=== PATIENT | female | born 1990 | race Caucasian/White ===

== ENCOUNTER → 2016-07-17 | Outpatient (CLI) | payer BC ==
[2016-07-21 16:04] LABS: HPV 16 Not Detected (NOTDET); HPV 18 Not Detected (NOTDET)
== END ==
LOC: MW.CHOBGYN 10:28
PROVIDERS: ATTEND Obstetrics & Gynecology
DX: Z12.4 Encounter for screening for malignant neoplasm of cervix (principal)
CPT/HCPCS: 87624; G0145

== ENCOUNTER 2017-07-03 07:09 | Day surgery (SDC) | payer BC ==
[2017-07-03] MEDS ORDERED: Bupivacaine 25%/EPINEPHrine/PF 30 ML ONE ×2 (07:41→08:22)
[2017-07-03] MEDS ORDERED: Midazolam 1 MG/ML 2 ML SDV ONE (07:57)
[2017-07-03] MEDS ORDERED: fentaNYL 100 MCG/2 ML SDV ONE (07:57)
[2017-07-03] MEDS ORDERED: Propofol 200 MG/20 ML SDV ONE (07:57)
--- NOTE | 2017-07-03 07:57 | PCM.PREANE ---
Preanesthetic Assessment - Anesthesia/Transfusion/Family Hx Anesthesia History: Prior Anesthesia Without Reaction Other Type of Anesthesia Reaction Comment: STATES MOTHER IS A HARD INTUBATION DUE TO SMALL MOUTH Family History of Anesthesia Reaction: No Transfusion History: No Prior Transfusion(s) Intubation History: Unknown - Review of Systems General: No Symptoms Pulmonary: No Symptoms Cardiovascular: No Symptoms Gastrointestinal: No Symptoms Neurological: No Symptoms Other: Reports: None - Physical Assessment O2 Sat by Pulse Oximetry: 96 Respiratory Rate: 16 Vital Signs: Last Vital Signs Temp 37.4 C 07/03/17 07:28 Pulse 83 07/03/17 07:28 Resp 16 07/03/17 07:28 BP 142/87 H 07/03/17 07:28 Pulse Ox 96 07/03/17 07:28 Height: 1.6 m Weight: 101.151 kg ASA Class: 2 Mental Status: Alert & Oriented x3 Airway Class: Mallampati = 2 Dentition: Reports: Normal Dentition Thyro-Mental Finger Breadths: 3 Mouth Opening Finger Breadths: 2 (very small mouth) ROM/Head Extension: Full Lungs: Clear to Auscultation, Normal Respiratory Effort Cardiovascular: Regular Rate, Regular Rhythm - Lab Values: Laboratory Last Values Urine HCG, Qual NEGATIVE (NEGATIVE) 07/03/17 07:12 - Allergies Allergies/Adverse Reactions: Allergies Allergy/AdvReac Type Severity Reaction Status Date / Time No Known Allergies Allergy Verified 06/28/17 09:52 - Blood Blood Available: No - Anesthesia Plan Pre-Op Medication Ordered: None - Acknowledgements Anesthesia Type Planned: MAC Pt an Appropriate Candidate for the Planned Anesthesia: Yes Alternatives and Risks of Anesthesia Discussed w Pt/Guardian: Yes Pt/Guardian Understands and Agrees with Anesthesia Plan: Yes PreAnesthesia Questionnaire - Past Health History Medical/Surgical History: Denies Medical/Surgical History HEENT History: Reports: Other (See Below) Other HEENT History: wears glasses/contacts Gastrointestinal History: Reports: Other (See Below) (h/o IBS) Genitourinary History: Reports: None 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 , Musculoskeletal History: Reports: Fracture, Other (See Below) (bilateral carpal tunnel syndrome) Other Musculoskeletal History: fx jaw Neurological History: Reports: None Psychiatric History: Reports: Anxiety, Other (See Below) (h/o depression) Endocrine/Metabolic History: Reports: Obesity/BMI 30+ (BMI 39.5) Hematologic History: Reports: None Immunologic History: Reports: None Oncologic (Cancer) History: Reports: None Dermatologic History: Reports: Psoriasis - Past Surgical History Head Surgeries/Procedures: Reports: None HEENT Surgical History: Reports: Adenoidectomy, Tonsillectomy, Other (See Below) Other HEENT Surgeries/Procedures: jaw surgery to advance mandible forward GI Surgical History: Reports: Cholecystectomy, Colonoscopy Female Surgical History: Reports: D&C, Other (See Below) Other Female Surgeries/Procedures: laparoscopy for ectopic with left salpingectomy - SUBSTANCE USE Smoking Status *Q: Current Every Day Smoker (1/ ppd at present time) Second Hand Smoke Exposure: Yes Days Per Week of Alcohol Use: 0 Recreational Drug Use History: Yes - HOME MEDS Home Medications: Home Meds Norgestimate-Ethinyl Estradiol [Norg-Ee 0.18-0.215-0.25/0.025] 1 tab PO DAILY [History] - CURRENT (IN HOUSE) MEDS Current Meds: Current Medications Hydrocodone Bitart/Acetaminophen ([place] 325-5 Mg) 1 tab PO Q4H PRN PRN Reason: Pain Bupivacaine HCl/Epinephrine Bitart (Marcaine 0.25%/Epinephrine 1:200,000) 10 ml INJECT ONETIME ONE Stop: 07/03/17 08:01 Cefazolin Sodium/Dextrose 2 gm (/ Premix) 50 mls @ 100 mls/hr IV ONETIME ONE Stop: 07/03/17 08:29 Lactated Ringer's (Ringers, Lactated) 1,000 mls @ 500 mls/hr IV .BOLUS MAUREEN Last Admin: 07/03/17 07:30 Dose: 500 mls/hr Discontinued Medications Bupivacaine HCl/Epinephrine Bitart (Sensorc Mpf 0.25%-Epi 1:705214) Confirm Administered Dose 30 mls @ as directed .ROUTE .STK-MED ONE Stop: 07/03/17 07:42
[2017-07-03] MEDS ORDERED: ceFAZolin 2 GM in Premix Bag 1 BAG IV ONE (08:00)
[2017-07-03] MEDS ORDERED: Lactated Ringers 1,000 ML IV SCH (08:00)
[2017-07-03] MEDS ORDERED: Bupivacaine 0.25%/EPINEPHrine 1:200,000 10 ML SDV INJECT ONE (08:00)
[2017-07-03] MEDS ORDERED: Acetaminophen/HYDROcodone 325-5 MG Tab PO PRN (08:00)
[2017-07-03] MEDS ORDERED: ceFAZolin/Dextrose,Iso-Osmotic 2 GM/50 ML Duplex Bag IV ONE (08:04)
[2017-07-03] MEDS ORDERED: diphenhydrAMINE 50 MG/ML SDV ONE (08:28)
--- NOTE | 2017-07-03 09:17 | PCM48HPAN ---
Post Anesthesia Note - EVALUATION WITHIN 48HRS OF ANESTHETIC Vital Signs in Normal Range: Yes Patient Participated in Evaluation: Yes Respiratory Function Stable: Yes Airway Patent: Yes Cardiovascular Function Stable: Yes Hydration Status Stable: Yes Pain Control Satisfactory: Yes Nausea and Vomiting Control Satisfactory: Yes Mental Status Recovered: Yes Resp Rate: 16 - COMMENTS/OBSERVATIONS Free Text/Narrative:: No anesthesia problems. Patient skipped recovery room phase of postoperative care.
[2017-07-03 15:01] VITALS: BP 124/66
--- NOTE | 2017-07-03 16:26 | PCM.OPNOTE ---
- General Post-Op/Procedure Note Date of Surgery/Procedure: 07/03/17 Operative Procedure(s): right carpal tunnel release Pre Op Diagnosis: right carpal tunnel Post-Op Diagnosis: Same Anesthesia Technique: Local, MAC Primary Surgeon: Vijaya Estrada Tar Distillation Supervisor: Jennifer Nicolas Complications: None Condition: Good Free Text/Narrative:: [id number]
--- NOTE | 2017-07-03 21:55 | OR ---
SURGEON: FRAN FREDERICK MD DATE OF PROCEDURE: 07/03/2017 PREOPERATIVE DIAGNOSIS: Right carpal tunnel syndrome. POSTOPERATIVE DIAGNOSIS: Right carpal tunnel syndrome. PROCEDURE: Right carpal tunnel release. MAJOR ACCOUNT MANAGER: JOSEPH Hannah ANESTHESIA: Local MAC. INDICATIONS: Ms. Chavez is a 27-year-old female, who has failed conservative management of her carpal tunnel syndrome. Risks and benefits of the surgery were discussed with her and she was in agreement to proceed. Risks were including, but not limited to, bleeding, infection, damage to underlying or overlying structures, possible need for future interventions, and possible scarring. PROCEDURE IN DETAIL: After informed consent was obtained and placed on the chart, the patient was brought to the operating theater and laid in supine position. After adequate local MAC anesthesia was obtained, the area was prepped and draped, and a time- out was completed to confirm side and site. Attention was then paid to dissection with a 15 blade over the transverse carpal ligament, and dissection was carried through the skin and subcutaneous tissues under direct visualization until the ligament was breached. Once adequately breached, dissection was then carried distally and proximally under direct visualization until complete release of the ligament. Once adequately released, the area was copiously irrigated with saline and then closed using 5-0 nylon stitch in a horizontal mattress fashion. The wound was then dressed with Xeroform, fluffs, and a Kerlix gauze dressing along with 2-inch Flako wrap. The patient tolerated this well. All counts and needles were correct at the end of the case. FOLLOWUP INSTRUCTIONS: The patient will see us in the clinic in 2 weeks for suture removal, sooner if any problems, questions, or concerns. She was given a prescription for [place] for pain control as needed. HEGGTHE / MODL /[id number]
== END 2017-07-03 09:30 | disposition home or self-care (01) ==
LOC: MW.SDS 07:09
PROVIDERS: ATTEND Plastic Surgery
DX: G56.03 Carpal tunnel syndrome, bilateral upper limbs (principal); F41.9 Anxiety disorder, unspecified; F32.9 Major depressive disorder, single episode, unspecified; F17.210 Nicotine dependence, cigarettes, uncomplicated; E66.9 Obesity, unspecified; Z68.39 Body mass index [BMI] 39.0-39.9, adult; Z90.49 Acquired absence of other specified parts of digestive tract; Z98.890 Other specified postprocedural states; Z79.3 Long term (current) use of hormonal contraceptives
CPT/HCPCS: 64721; 81025; J0690; J1200; J2250; J3010; J7120; 01810; J2704

== ENCOUNTER 2017-08-07 06:15 | Day surgery (SDC) | payer BC ==
[2017-08-07] MEDS ORDERED: Bupivacaine 25%/EPINEPHrine/PF 30 ML ONE (07:27)
[2017-08-07] MEDS ORDERED: Desflurane 240 ML Bottle ONE (07:35)
[2017-08-07] MEDS ORDERED: fentaNYL 100 MCG/2 ML SDV ONE (07:37)
[2017-08-07] MEDS ORDERED: Midazolam 1 MG/ML 2 ML SDV ONE (07:37)
[2017-08-07] MEDS ORDERED: Propofol 200 MG/20 ML SDV ONE (07:37)
[2017-08-07] MEDS ORDERED: ceFAZolin/Dextrose,Iso-Osmotic 2 GM/50 ML Duplex Bag IV ONE (07:38)
[2017-08-07] MEDS ORDERED: Lidocaine 2% 5 ML SDV ONE (07:38)
--- NOTE | 2017-08-07 07:55 | PCM.PREANE ---
Preanesthetic Assessment - Anesthesia/Transfusion/Family Hx Anesthesia History: Prior Anesthesia Without Reaction Other Type of Anesthesia Reaction Comment: STATES MOTHER IS A HARD INTUBATION DUE TO SMALL MOUTH Transfusion History: No Prior Transfusion(s) Intubation History: Unknown - Review of Systems General: No Symptoms, Other (psoriasis) Pulmonary: No Symptoms Cardiovascular: No Symptoms Gastrointestinal: No Symptoms Neurological: No Symptoms, Numbness (left hand) Other: Reports: Anxiety - Physical Assessment NPO Status Date: 08/06/17 NPO Status Time: 23:00 O2 Sat by Pulse Oximetry: 95 Respiratory Rate: 16 Vital Signs: Last Vital Signs Temp 97.2 F 08/07/17 07:02 Pulse 151 H 08/07/17 07:02 Resp 16 08/07/17 07:02 BP Pulse Ox 95 08/07/17 07:02 Height: 5 ft 3 in Weight: 223 lb ASA Class: 2 Mental Status: Alert & Oriented x3 Airway Class: Mallampati = 2 Dentition: Reports: Normal Dentition Thyro-Mental Finger Breadths: 4 Mouth Opening Finger Breadths: 3 ROM/Head Extension: Limited/Partial Lungs: Clear to Auscultation, Normal Respiratory Effort Cardiovascular: Regular Rate, Regular Rhythm, No Murmurs - Lab Values: Laboratory Last Values Urine HCG, Qual NEGATIVE (NEGATIVE) 08/07/17 06:41 - Allergies Allergies/Adverse Reactions: Allergies Allergy/AdvReac Type Severity Reaction Status Date / Time No Known Allergies Allergy Verified 08/02/17 11:58 - Blood Blood Available: No Product(s) Available: None - Acknowledgements Anesthesia Type Planned: MAC Pt an Appropriate Candidate for the Planned Anesthesia: Yes Alternatives and Risks of Anesthesia Discussed w Pt/Guardian: Yes Pt/Guardian Understands and Agrees with Anesthesia Plan: Yes PreAnesthesia Questionnaire - Past Health History Medical/Surgical History: Denies Medical/Surgical History HEENT History: Reports: Other (See Below) Other HEENT History: wears glasses/contacts Gastrointestinal History: Reports: None Genitourinary History: Reports: None 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 , Musculoskeletal History: Reports: Fracture, Other (See Below) Other Musculoskeletal History: fx jaw Neurological History: Reports: None Psychiatric History: Reports: Anxiety, Other (See Below) Endocrine/Metabolic History: Reports: Obesity/BMI 30+ Hematologic History: Reports: None Immunologic History: Reports: None Oncologic (Cancer) History: Reports: None Dermatologic History: Reports: Psoriasis - Past Surgical History Head Surgeries/Procedures: Reports: None HEENT Surgical History: Reports: Adenoidectomy, Tonsillectomy, Other (See Below) Other HEENT Surgeries/Procedures: jaw surgery to advance mandible forward GI Surgical History: Reports: Cholecystectomy, Colonoscopy Female Surgical History: Reports: D&C, Other (See Below) Other Female Surgeries/Procedures: laparoscopy for ectopic with left salpingectomy - SUBSTANCE USE Smoking Status *Q: Current Every Day Smoker Second Hand Smoke Exposure: Yes Days Per Week of Alcohol Use: 0 Number of Drinks Per Day: 1 Total Drinks Per Week: 0 Recreational Drug Use History: Yes - HOME MEDS Home Medications: Home Meds Norgestimate-Ethinyl Estradiol [Norg-Ee 0.18-0.215-0.25/0.025] 1 tab PO DAILY [History] - CURRENT (IN HOUSE) MEDS Current Meds: Current Medications Hydrocodone Bitart/Acetaminophen ([place] 325-5 Mg) 1 tab PO Q4H PRN PRN Reason: Pain Bupivacaine HCl/Epinephrine Bitart (Marcaine 0.25%/Epinephrine 1:200,000) 10 ml INJECT ONETIME ONE Stop: 08/07/17 08:01 Cefazolin Sodium/Dextrose 2 gm (/ Premix) 50 mls @ 100 mls/hr IV ONETIME ONE Stop: 08/07/17 08:29 Lactated Ringer's (Ringers, Lactated) 1,000 mls @ 125 mls/hr IV ASDIRECTED MAUREEN Last Admin: 08/07/17 07:16 Dose: 125 mls/hr Discontinued Medications Cefazolin Sodium/Dextrose (Ancef) Confirm Administered Dose 2 gm IV .STK-MED ONE Stop: 08/07/17 07:39 Desflurane (Suprane) Confirm Administered Dose 480 ml .ROUTE .STK-MED ONE Stop: 08/07/17 07:36 Fentanyl (Sublimaze) Confirm Administered Dose 100 mcg .ROUTE .STK-MED ONE Stop: 08/07/17 07:38 Bupivacaine HCl/Epinephrine Bitart (Sensorc Mpf 0.25%-Epi 1:620777) Confirm Administered Dose 30 mls @ as directed .ROUTE .STK-MED ONE Stop: 08/07/17 07:28 Lidocaine (Xylocaine-Mpf 2%) Confirm Administered Dose 5 ml .ROUTE .STK-MED ONE Stop: 08/07/17 07:39 Midazolam HCl (Versed 1 Mg/Ml) Confirm Administered Dose 2 mg .ROUTE .STK-MED ONE Stop: 08/07/17 07:38 Propofol (Diprivan 20 Ml) Confirm Administered Dose 200 mg .ROUTE .STK-MED ONE Stop: 08/07/17 07:38
[2017-08-07] MEDS ORDERED: Acetaminophen/HYDROcodone 325-5 MG Tab PO PRN (08:00)
[2017-08-07] MEDS ORDERED: Lactated Ringers 1,000 ML IV SCH (08:00)
[2017-08-07] MEDS ORDERED: Bupivacaine 0.25%/EPINEPHrine 1:200,000 10 ML SDV INJECT ONE (08:00)
[2017-08-07] MEDS ORDERED: ceFAZolin 2 GM in Premix Bag 1 BAG IV ONE (08:00)
--- NOTE | 2017-08-07 08:38 | PCM48HPAN ---
Post Anesthesia Note - EVALUATION WITHIN 48HRS OF ANESTHETIC Vital Signs in Normal Range: Yes Patient Participated in Evaluation: Yes Respiratory Function Stable: Yes Airway Patent: Yes Cardiovascular Function Stable: Yes Hydration Status Stable: Yes Pain Control Satisfactory: Yes Nausea and Vomiting Control Satisfactory: Yes Mental Status Recovered: Yes Resp Rate: 16 - COMMENTS/OBSERVATIONS Free Text/Narrative:: Patient came directly to phase II due to sedation only for CTR on left hand. Stable and alert with pain complaint to be treated with [place] per surgeon. Release to home within the hour.
[2017-08-07 09:29] VITALS: BP 142/66
--- NOTE | 2017-08-07 15:57 | PCM.OPNOTE ---
- General Post-Op/Procedure Note Date of Surgery/Procedure: 08/07/17 Operative Procedure(s): Left carpal tunnel release Pre Op Diagnosis: left carpal tunnel Post-Op Diagnosis: Same Anesthesia Technique: Local, MAC Primary Surgeon: Vijaya Estrada Mortar Man: Jennifer Nicolas Complications: None Condition: Good
--- NOTE | 2017-08-09 15:16 | OR ---
SURGEON: FRAN FREDERICK MD DATE OF PROCEDURE: 08/07/2017 PREOPERATIVE DIAGNOSIS: Left carpal tunnel syndrome. POSTOPERATIVE DIAGNOSIS: Left carpal tunnel syndrome. PROCEDURE: Left carpal tunnel release. CALENDER TENDER: JOSEPH Hannah. ANESTHESIA: Local MAC. REASON CALENDER TENDER WAS NECESSARY: Retraction, prepping, draping, and closure. INDICATIONS: Ms. Chavez is a 27-year-old female, who has previously had a right carpal tunnel syndrome release with us and she has done well. She is here for the left side. Risks and benefits were discussed with her and she was in agreement to proceed. Risks were including, but not limited to, bleeding, infection, damage to underlying or overlying structures, possible need for future interventions, possible scarring. PROCEDURE IN DETAIL: After informed consent was obtained and placed on the chart, the patient was brought to the operating theater and laid in supine position. After adequate local MAC anesthesia was obtained, the area was prepped and draped, and a time- out was completed to confirm side and site. 0.25% Marcaine with epinephrine was injected into the area and after adequate block, the arm was exsanguinated. The tourniquet was insufflated to 200 mmHg. A 15 blade was then used to dissect through the skin and subcutaneous tissues over the transverse carpal ligament. The ligament was breached, and dissection was then carried distally and proximally until complete release of the underlying nerve. Once adequately released, the area was copiously irrigated and the skin was then closed using a 5-0 nylon stitch in a horizontal mattress fashion. The wound was dressed with Xeroform, fluffs, Kerlix gauze dressing, and a 2-inch Flako wrap. The patient tolerated this well. All counts and needles were correct at the end of the case. FOLLOWUP INSTRUCTIONS: The patient will see us in 10 to 14 days, sooner if any problems, questions, or concerns, and was given a prescription for pain control. ZARA / FOUZIA /[id number]
== END 2017-08-07 09:20 | disposition home or self-care (01) ==
LOC: MW.SDS 06:15
PROVIDERS: ATTEND Plastic Surgery
DX: G56.02 Carpal tunnel syndrome, left upper limb (principal); F41.9 Anxiety disorder, unspecified; M65.4 Radial styloid tenosynovitis [de Quervain]; L40.9 Psoriasis, unspecified; L82.1 Other seborrheic keratosis; F17.200 Nicotine dependence, unspecified, uncomplicated; E66.9 Obesity, unspecified; Z68.39 Body mass index [BMI] 39.0-39.9, adult; Z79.899 Other long term (current) drug therapy; Z98.890 Other specified postprocedural states; Z90.49 Acquired absence of other specified parts of digestive tract
CPT/HCPCS: 64721; 81025; A9270; J0690; J2250; J3010; J7120; 01810; J2704

== ENCOUNTER 2017-10-22 10:01 | Emergency (ER) | payer BC ==
--- NOTE | 2017-10-22 10:36 | EDM.PDOC ---
ED HPI GENERAL MEDICAL PROBLEM - General Chief Complaint: Skin Complaint Stated Complaint: BODYACHES Time Seen by Provider: 10/22/17 10:11 Source of Information: Reports: Patient History Limitations: Reports: No Limitations - History of Present Illness INITIAL COMMENTS - FREE TEXT/NARRATIVE: Presents to the ER reporting rash of 2 days duration. Started with a red crusty rash around her lips and nose and then "dots" on her face. She saw a provider at the clinic who prescribed Augmentin and Mupirocin. The rash then spread into her scalp with a "mass" in her right occipital area. 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 One of the physicians there did describe her symptoms and text pictures to a service agent who was not able to provide a diagnosis. Now today the patient states that she not only has the rash on her face and scalp but also on her hands. She also reports "prickly pain" and stiffness in the joints of her hands and feet. She denies fever, ill contacts, foreign travel , environmental exposures. She denies taking any [id number], herbal supplements, recreational drugs or prescription medications. The only medication she takes is control pills which she has been on for quite some time. She is otherwise healthy without any chronic medical problems. hands and feet Pain Score (Numeric/FACES): 5 - Related Data Allergies Allergy/AdvReac Type Severity Reaction Status Date / Time No Known Allergies Allergy Verified 10/22/17 10:07 Home Meds: Home Meds Norgestimate-Ethinyl Estradiol [Norg-Ee 0.18-0.215-0.25/0.025] 1 tab PO DAILY [History] Past Medical History - Past Health History Medical/Surgical History: Denies Medical/Surgical History HEENT History: Reports: Other (See Below) Other HEENT History: wears glasses/contacts Cardiovascular History: Reports: None Respiratory History: Reports: None Gastrointestinal History: Reports: None Genitourinary History: Reports: None 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 , Musculoskeletal History: Reports: Fracture, Other (See Below) Other Musculoskeletal History: fx jaw Neurological History: Reports: None Psychiatric History: Reports: Anxiety, Other (See Below) Endocrine/Metabolic History: Reports: Obesity/BMI 30+ Hematologic History: Reports: None Immunologic History: Reports: None Oncologic (Cancer) History: Reports: None Dermatologic History: Reports: Psoriasis - Infectious Disease History Infectious Disease History: Reports: Chicken Pox - Past Surgical History Head Surgeries/Procedures: Reports: None HEENT Surgical History: Reports: Adenoidectomy, Tonsillectomy, Other (See Below) Other HEENT Surgeries/Procedures: jaw surgery to advance mandible forward Cardiovascular Surgical History: Reports: None Respiratory Surgical History: Reports: None GI Surgical History: Reports: Cholecystectomy, Colonoscopy Female Surgical History: Reports: D&C, Other (See Below) Other Female Surgeries/Procedures: laparoscopy for ectopic with left salpingectomy Neurological Surgical History: Reports: None Musculoskeletal Surgical History: Reports: None Oncologic Surgical History: Reports: None Dermatological Surgical History: Reports: None Social & Family History - Family History Family Medical History: Noncontributory - Tobacco Use Smoking Status *Q: Current Every Day Smoker Years of Tobacco use: 6 Packs/Tins Daily: 0.2 - Caffeine Use Caffeine Use: Reports: None - Recreational Drug Use Recreational Drug Use: No ED ROS GENERAL - Review of Systems Review Of Systems: ROS reveals no pertinent complaints other than HPI. ED EXAM, SKIN/RASH Exam: See Below Exam Limited By: No Limitations General Appearance: Alert, No Apparent Distress Eye Exam: Bilateral Eye: EOMI, PERRL Ears: Normal External Exam, Normal TMs Nose: Normal Inspection Throat/Mouth: Normal Oropharynx, Other (Thin white film on tongue with a few red macules. Small red macules noted under the tongue and on the soft palate) Head: Atraumatic, Normocephalic, Other (Diffuse erythematous macular papular lesions scattered about scalp.) Neck: Normal Inspection, Lymphadenopathy (L) (Left posterior cervical tender lymph node approximately 2 cm) Respiratory/Chest: No Respiratory Distress, Lungs Clear Cardiovascular: Normal Peripheral Pulses, Regular Rate, Rhythm GI/Abdominal: Soft Back Exam: Normal Inspection Neurological: Alert Psychiatric: Flat Affect Skin: Warm, Dry, Intact, Normal Color, Other (Macular papular rash on the face scalp palms and soles and lower buttocks along with arm pits. Scarring and small pustules noted in axillary area.) Course - Vital Signs Last Recorded V/S: Last Vital Signs Temp 35.6 C 10/22/17 10:05 Pulse 108 H 10/22/17 10:05 Resp 18 10/22/17 10:05 BP 191/126 H 10/22/17 10:05 Pulse Ox 97 06/12/18 10:05 - Orders/Labs/Meds Labs: Laboratory Tests 10/22/17 10/22/17 Range/Units 10:38 10:38 WBC 5.34 (4.0-11.0) K/uL RBC 4.53 (4.30-5.90) M/uL Hgb 13.6 (12.0-16.0) g/dL Hct 38.2 (36.0-46.0) % MCV 84.3 (80.0-98.0) fL MCH 30.0 (27.0-32.0) pg MCHC 35.6 (31.0-37.0) g/dL RDW Std Deviation 37.9 (28.0-62.0) fl RDW Coeff of Zeb 12 (11.0-15.0) % Plt Count 171 (150-400) K/uL MPV 9.90 (7.40-12.00) fL Neut % (Auto) 64.5 (48.0-80.0) % Lymph % (Auto) 25.8 (16.0-40.0) % [place] % (Auto) 7.3 (0.0-15.0) % Eos % (Auto) 2.2 (0.0-7.0) % Baso % (Auto) 0.2 (0.0-1.5) % Neut # (Auto) 3.4 (1.4-5.7) K/uL Lymph # (Auto) 1.4 (0.6-2.4) K/uL [place] # (Auto) 0.4 (0.0-0.8) K/uL Eos # (Auto) 0.1 (0.0-0.7) K/uL Baso # (Auto) 0.0 (0.0-0.1) K/uL Nucleated RBC % 0.0 /100WBC Nucleated RBCs # 0 K/uL ESR 36 H (0-19) mm/hr Sodium 139 (136-145) mmol/L Potassium 3.7 (3.5-5.1) mmol/L Chloride 104 (98-107) mmol/L Carbon Dioxide 25.1 (21.0-32.0) mmol/L BUN 8 (7.0-18.0) mg/dL Creatinine 0.8 (0.6-1.0) mg/dL Est Cr Clr Drug Dosing 85.83 mL/min Estimated GFR (MDRD) > 60.0 ml/min Glucose 113 H (74-106) mg/dL Calcium 8.9 (8.5-10.1) mg/dL Total Bilirubin 0.3 (0.2-1.0) mg/dL AST 21 (15-37) IU/L ALT 23 (14-63) IU/L Alkaline Phosphatase 58 (46-116) U/L C-Reactive Protein 2.70 H (0.00-0.90) mg/dL Total Protein 7.5 (6.4-8.2) g/dL Albumin 3.6 (3.4-5.0) g/dL Globulin 3.9 H (2.0-3.5) g/dL Albumin/Globulin Ratio 0.9 L (1.3-2.8) Departure - Departure Time of Disposition: 12:14 Disposition: Home, Self-Care 01 Condition: Good Clinical Impression: Rash and nonspecific skin eruption - Discharge Information Referrals: PCP,None [Primary Care Provider] - Tracie Hinton DO [Physician] - Forms: ED Department Discharge Additional Instructions: 1. Please call and make an appointment with Dr. Hinton when you leave here. Drop your lab results off for Dr. Hinton's reveiw. 2. Start your prednisone at Dr. Hinton direction.
[2017-10-22 11:14] LABS: CHLORIDE,CL 104 mmol/L (98-107); SODIUM,NA 139 mmol/L (136-145)
[2017-10-22 12:49] VITALS: BP 147/92
== END 2017-10-22 12:49 | disposition home or self-care (01) ==
LOC: MW.ED 10:01
DX: R21 Rash and other nonspecific skin eruption (principal); F17.210 Nicotine dependence, cigarettes, uncomplicated
CPT/HCPCS: 36415; 80053; 85025; 85652; 86140; 99283

== ENCOUNTER 2018-06-13 09:36 | Day surgery (SDC) | payer BC ==
[~2018-06-13 09:36] MED LIST: Acetaminophen/HYDROcodone 325-5 MG Tab PO PRN; Bupivacaine 0.25%/EPINEPHrine 1:200,000 10 ML SDV INJECT ONE; Bupivacaine 0.25%/EPINEPHrine 1:200,000 10 ML SDV ONE; Lactated Ringers 1,000 ML IV SCH; ceFAZolin 2 GM in Premix Bag 1 BAG IV ONE
[2018-06-13] MEDS ORDERED: fentaNYL 100 MCG/2 ML SDV ONE ×2 (11:48→16:11)
[2018-06-13] MEDS ORDERED: Lidocaine 2% 5 ML SDV ONE (11:48)
[2018-06-13] MEDS ORDERED: Propofol 200 MG/20 ML SDV ONE (11:48)
[2018-06-13] MEDS ORDERED: Midazolam 1 MG/ML 2 ML SDV ONE (11:49)
--- NOTE | 2018-06-13 12:34 | PCM.PREANE ---
Preanesthetic Assessment - Anesthesia/Transfusion/Family Hx Anesthesia History: Prior Anesthesia Without Reaction Other Type of Anesthesia Reaction Comment: STATES MOTHER IS A HARD INTUBATION DUE TO SMALL MOUTH Family History of Anesthesia Reaction: No Transfusion History: No Prior Transfusion(s) Intubation History: Unknown - Review of Systems General: No Symptoms Pulmonary: No Symptoms Cardiovascular: No Symptoms Gastrointestinal: No Symptoms Neurological: No Symptoms Other: Reports: None - Physical Assessment Height: 1.6 m Weight: 103.873 kg ASA Class: 2 Mental Status: Alert & Oriented x3 Airway Class: Mallampati = 3 Dentition: Reports: Normal Dentition Thyro-Mental Finger Breadths: 3 Mouth Opening Finger Breadths: 1 (VERY SMALL MOUTH) ROM/Head Extension: Full Lungs: Clear to Auscultation, Normal Respiratory Effort Cardiovascular: Regular Rate, Regular Rhythm - Lab Values: Laboratory Last Values Urine HCG, Qual NEGATIVE (NEGATIVE) 06/13/18 10:20 - Allergies Allergies/Adverse Reactions: Allergies Allergy/AdvReac Type Severity Reaction Status Date / Time No Known Allergies Allergy Verified 06/11/18 10:19 - Blood Blood Available: No - Anesthesia Plan Pre-Op Medication Ordered: None - Acknowledgements Anesthesia Type Planned: General Anesthesia Pt an Appropriate Candidate for the Planned Anesthesia: Yes Alternatives and Risks of Anesthesia Discussed w Pt/Guardian: Yes Pt/Guardian Understands and Agrees with Anesthesia Plan: Yes PreAnesthesia Questionnaire - Past Health History Medical/Surgical History: Denies Medical/Surgical History HEENT History: Reports: Other (See Below) Other HEENT History: wears glasses/contacts Cardiovascular History: Reports: None, Other (See Below) (h/o induced hypertension) Respiratory History: Reports: None Gastrointestinal History: Reports: Other (See Below) (h/o IBS) Genitourinary History: Reports: Other (See Below) (stress incontinence) 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 Musculoskeletal History: Reports: Fracture, Other (See Below) Other Musculoskeletal History: fx jaw Neurological History: Reports: Migraines Psychiatric History: Reports: Anxiety, Other (See Below) Endocrine/Metabolic History: Reports: Obesity/BMI 30+ (BMI 40.6) Hematologic History: Reports: None Immunologic History: Reports: None Oncologic (Cancer) History: Reports: None Dermatologic History: Reports: Psoriasis - Infectious Disease History Infectious Disease History: Reports: Chicken Pox, Other (See Below) ( hydradenitis suppurativa left axilla) - Past Surgical History Head Surgeries/Procedures: Reports: None HEENT Surgical History: Reports: Adenoidectomy, Oral Surgery, Tonsillectomy Other HEENT Surgeries/Procedures: jaw surgery to correct underbite (has plates and screws), wisdom teeth removed GI Surgical History: Reports: Cholecystectomy, Colonoscopy, Other (See Below) ( diagnostic laparoscopy) Female Surgical History: Reports: D&C, Other (See Below) Other Female Surgeries/Procedures: Laparoscopy for excision of Ectopic Musculoskeletal Surgical History: Reports: Carpal Tunnel Other Musculoskeletal Surgeries/Procedures:: bilateral CTR - SUBSTANCE USE Smoking Status *Q: Former Smoker Tobacco Use Within Last Twelve Months: No Recreational Drug Use History: No - HOME MEDS Home Medications: Home Meds SUMAtriptan [Imitrex] 50 mg PO ASDIRECTED PRN 06/11/18 [History] - CURRENT (IN HOUSE) MEDS Current Meds: Current Medications Hydrocodone Bitart/Acetaminophen ([place]llo 325-5 Mg) 1 tab PO Q4H PRN PRN Reason: Pain Lactated Ringer's (Ringers, Lactated) 1,000 mls @ 125 mls/hr IV ASDIRECTED MAUREEN Discontinued Medications Bupivacaine HCl/Epinephrine Bitart (Marcaine 0.25%/Epinephrine 1:200,000) 10 ml INJECT ONETIME ONE Stop: 06/13/18 08:01 Bupivacaine HCl/Epinephrine Bitart (Marcaine 0.25%/Epinephrine 1:200,000) Confirm Administered Dose 10 ml .ROUTE .STK-MED ONE Stop: 06/13/18 07:22 Fentanyl (Sublimaze) Confirm Administered Dose 100 mcg .ROUTE .STK-MED ONE Stop: 06/13/18 11:49 Cefazolin Sodium/Dextrose 2 gm (/ Premix) 50 mls @ 100 mls/hr IV ONETIME ONE Stop: 06/13/18 08:29 Lidocaine (Xylocaine-Mpf 2%) Confirm Administered Dose 5 ml .ROUTE .STK-MED ONE Stop: 06/13/18 11:49 Midazolam HCl (Versed 1 Mg/Ml) Confirm Administered Dose 2 mg .ROUTE .STK-MED ONE Stop: 06/13/18 11:50 Propofol (Diprivan 20 Ml) Confirm Administered Dose 200 mg .ROUTE .STK-MED ONE Stop: 06/13/18 11:49
[2018-06-13] MEDS ORDERED: ceFAZolin/Dextrose,Iso-Osmotic 2 GM/50 ML Duplex Bag IV ONE (15:06)
[2018-06-13] MEDS ORDERED: HYDROmorphone 2 MG/ML SDV IVPUSH PRN (16:14)
[2018-06-13] MEDS ORDERED: Meperidine PF 25 MG/ML Syringe IV PRN (16:14)
[2018-06-13] MEDS ORDERED: fentaNYL 100 MCG/2 ML SDV IVPUSH PRN (16:18)
[2018-06-13] MEDS ORDERED: Promethazine 25 MG/ML SDV IM PRN (16:18)
--- NOTE | 2018-06-13 17:15 | PCM.POSTAN ---
POST ANESTHESIA ASSESSMENT - MENTAL STATUS Mental Status: Alert, Oriented - VITAL SIGNS Pulse Rate: 73 SaO2: 95 Resp Rate: 18 Blood Pressure: 136/76 Temperature: 37.0 C - RESPIRATORY Respiratory Status: Respiratory Rate WNL (had laryngospasm in OR which was promptly recognized and expeditiously treated without sequelae. Lungs clear. Respirations mariela. Vitals stable.), Airway Patent, O2 Saturation Stable - CARDIOVASCULAR CV Status: Pulse Rate WNL, Blood Pressure Stable - GASTROINTESTINAL GI Status: No Symptoms - PAIN Pain Score: 4 (minimal pain, no nausea) - POST OP HYDRATION Hydration Status: Adequate & Stable - OBSERVATIONS Free Text/Narrative:: good post op phase I recovery. Vitals stable. Unremarkable recovery.
--- NOTE | 2018-06-13 17:43 | PCM48HPAN ---
Post Anesthesia Note - EVALUATION WITHIN 48HRS OF ANESTHETIC Vital Signs in Normal Range: Yes Patient Participated in Evaluation: Yes Respiratory Function Stable: Yes Airway Patent: Yes Cardiovascular Function Stable: Yes Hydration Status Stable: Yes Pain Control Satisfactory: Yes Nausea and Vomiting Control Satisfactory: Yes Pulse Rate: 73 Resp Rate: 18 Temperature: 37.0 C Blood Pressure: 136/76 - COMMENTS/OBSERVATIONS Free Text/Narrative:: awake,alert, vitals stable. Sitting up in bed drinking. IV is out. Ready to go home. Good post op phase II recovery in room 201
[2018-06-13 17:49] VITALS: BP 138/85
--- NOTE | 2018-06-13 18:06 | PCM.OPNOTE ---
- General Post-Op/Procedure Note Date of Surgery/Procedure: 06/13/18 Operative Procedure(s): excision of left axillary hidradenitis with layered closure. Pre Op Diagnosis: left axillary hidradenitis Post-Op Diagnosis: Same Anesthesia Technique: General LMA, Local Primary Surgeon: Vijaya Estrada Retail Worker: Jnenifer Nicolas Complications: None Condition: Good Free Text/Narrative:: Intake & Output 06/13/18 06/13/18 06/13/18 07:59 15:59 23:59 Intake Total 1300 Balance 1300
--- NOTE | 2018-06-15 12:50 | OR ---
SURGEON: FRAN FREDERICK MD DATE OF PROCEDURE: 06/13/2018 PREOPERATIVE DIAGNOSIS: Left axillary hidradenitis. POSTOPERATIVE DIAGNOSIS: Left axillary hidradenitis. PROCEDURE: Excision of left axillary hidradenitis with layered closure. SPLITTER HEAD: JOSEPH Hannah. ANESTHESIA: General LMA with local. INDICATIONS: Ms. Chavez is a 28-year-old female, seen today in evaluation for left axillary hidradenitis. Risks and benefits of excision were discussed with her including, but not limited to, bleeding, infection, damage to underlying or overlying structures, possible need for future interventions, and possible scarring. PROCEDURE IN DETAIL: After informed consent was obtained and placed on the chart, the patient was brought to the operating theater and laid in supine position. After adequate general anesthesia was obtained, the area was prepped and draped, and a time-out was completed to confirm side and site. Attention was then paid to an elliptical planned incision, and 0.25% Marcaine with epinephrine was injected into the field block for adequate pain control. In an elliptical fashion, this was excised all the way down to the superficial fascia layer. Once adequately excised, meticulous hemostasis was obtained, and wound was closed using deep 3-0 Monocryl Stratafix suture for the layered closure of the fascia and dermis as well as running for subcuticular for the skin. This was dressed with Steri-Strips, ABD, and tape. The patient tolerated this well. All counts and needles were correct at the end of the case. FOLLOWUP INSTRUCTIONS: The patient will see us in 10 to 14 days, sooner if any problems, questions, or concerns. She was given a prescription for pain control. ZARA / FOUZIA /[id number]
== END 2018-06-13 18:05 | disposition home or self-care (01) ==
LOC: MW.SDS 09:36 → MW.MS 17:07 → MW.SDS 18:05
PROVIDERS: ATTEND Plastic Surgery
DX: L73.2 Hidradenitis suppurativa (principal); F41.9 Anxiety disorder, unspecified; E66.9 Obesity, unspecified; Z68.41 Body mass index [BMI] 40.0-44.9, adult; Z87.891 Personal history of nicotine dependence
CPT/HCPCS: 11450; 81025; J0690; J2001; J2250; J2704; J3010; J3490; J7120

== ENCOUNTER 2019-03-03 17:29 | Observation (INO) | payer BC ==
--- NOTE | 2019-03-03 17:41 | EDM.PDOC ---
<Santiago Young - Last Filed: 03/03/19 18:20> ED HPI GENERAL MEDICAL PROBLEM - General Chief Complaint: Genitourinary Problem Stated Complaint: 11 WEEKS PREG--BACK AND STOMACH PAIN Time Seen by Provider: 03/03/19 17:41 Source of Information: Reports: Patient - History of Present Illness INITIAL COMMENTS - FREE TEXT/NARRATIVE: HISTORY AND PHYSICAL: History of present illness: [Patient with 11 week presents with abdominal pain, she is seeing her provider today diagnosed with UTI prescribed Macrobid however she has not taken the Macrobid she was on her way to the pharmacy pain increased to 8 out of 10 and she presents as such Vaginal bleeding spotting or fluid leakage Pain radiates to the right flank, no fever vomiting chills sweats ] Review of systems: As per history of present illness and below otherwise all systems reviewed and negative. Past medical history: As per history of present illness and as reviewed below otherwise noncontributory. Surgical history: As per history of present illness and as reviewed below otherwise noncontributory. Social history: No reported history of drug or alcohol abuse. Family history: As per history of present illness and as reviewed below otherwise noncontributory. Physical exam: HEENT: Atraumatic, normocephalic, pupils reactive, negative for conjunctival pallor or scleral icterus, mucous membranes moist, throat clear, neck supple, nontender, trachea midline. Lungs: Clear to auscultation, breath sounds equal bilaterally, chest nontender. Heart: S1S2, regular, negative for clicks, rubs, or JVD. Abdomen: Soft, nondistended, nontender. Negative for masses or hepatosplenomegaly. Negative for costovertebral tenderness. Pelvis: Stable nontender. Genitourinary: Deferred. Rectal: Deferred. Extremities: Atraumatic, negative for cords or calf pain. Neurovascular unremarkable. Neuro: Awake, alert, oriented. Cranial nerves II through XII unremarkable. Cerebellum unremarkable. Motor and sensory unremarkable throughout. Exam nonfocal. Diagnostics: [cBC CMP hCG Quant ABO type on file OB limited ultrasound in addition Abdomen limited right lower quadrant ] Therapeutics: [ normal saline Morphine Zofran ] Impression: [11 weeks with UTI B+ blood type] Definitive disposition and diagnosis as appropriate pending reevaluation and review of above. Left side Pain Score (Numeric/FACES): 8 - Related Data Allergies Allergy/AdvReac Type Severity Reaction Status Date / Time No Known Allergies Allergy Verified 03/03/19 17:45 Home Meds: Home Meds Aspirin 81 mg PO DAILY 03/03/19 [History] Past Medical History - Past Health History Medical/Surgical History: Denies Medical/Surgical History HEENT History: Reports: Other (See Below) Other HEENT History: wears glasses/contacts Cardiovascular History: Reports: None, Other (See Below) (h/o induced hypertension) Respiratory History: Reports: None Gastrointestinal History: Reports: Other (See Below) (h/o IBS) Genitourinary History: Reports: Other (See Below) (stress incontinence) 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 Musculoskeletal History: Reports: Fracture, Other (See Below) Other Musculoskeletal History: fx jaw Neurological History: Reports: Migraines Psychiatric History: Reports: Anxiety, Other (See Below) Endocrine/Metabolic History: Reports: Obesity/BMI 30+ (BMI 40.6) Hematologic History: Reports: None Immunologic History: Reports: None Oncologic (Cancer) History: Reports: None Dermatologic History: Reports: Psoriasis - Infectious Disease History Infectious Disease History: Reports: Chicken Pox, Other (See Below) ( hydradenitis suppurativa left axilla) - Past Surgical History Head Surgeries/Procedures: Reports: None HEENT Surgical History: Reports: Adenoidectomy, Oral Surgery, Tonsillectomy Other HEENT Surgeries/Procedures: jaw surgery to correct underbite (has plates and screws), wisdom teeth removed GI Surgical History: Reports: Cholecystectomy, Colonoscopy, Other (See Below) ( diagnostic laparoscopy) Female Surgical History: Reports: D&C, Other (See Below) Other Female Surgeries/Procedures: Laparoscopy for excision of Ectopic Musculoskeletal Surgical History: Reports: Carpal Tunnel Other Musculoskeletal Surgeries/Procedures:: bilateral CTR Social & Family History - Family History Family Medical History: Noncontributory - Caffeine Use Caffeine Use: Reports: None Course - Vital Signs Last Recorded V/S: Last Vital Signs Temp 36.1 C 03/03/19 19:11 Pulse 72 03/03/19 19:11 Resp 20 03/03/19 19:11 BP 154/86 H 03/03/19 19:11 Pulse Ox 100 03/03/19 19:11 - Orders/Labs/Meds Orders: Active Orders 24 hr Category Date Time Status Patient Status [ADT] Routine ADT 03/03/19 20:32 Active Oxygen Therapy [RC] PRN Care 03/03/19 20:30 Active Pulse Oximetry [RC] INTERMITTENT Care 03/03/19 20:30 Active Up ad Fiona [RC] ASDIRECTED Care 03/03/19 20:30 Active Vital Signs [RC] PER UNIT ROUTINE Care 03/03/19 20:30 Active Clear Liquid Diet [DIET] Diet 03/03/19 Dinner Active Nothing Per Oral Diet [DIET] Diet 03/03/19 Dinner Active CBC WITH AUTO DIFF [HEME] AM Lab 03/04/19 05:11 Ordered CULTURE BLOOD [BC] Stat Lab 03/03/19 19:22 Ordered CULTURE BLOOD [BC] Stat Lab 03/03/19 19:55 Received Lactated Ringers [Ringers, Lactated] 1,000 ml Med 03/03/19 20:45 Ordered IV ASDIRECTED Morphine Med 03/03/19 20:31 Ordered See Dose Instructions IVPUSH Q1H PRN Ondansetron [Zofran] Med 03/03/19 20:31 Ordered 4 mg IVPUSH Q6H PRN Blood Culture x2 Reflex Set [OM.PC] Stat Oth 03/03/19 19:22 Ordered Resuscitation Status Routine Resus Stat 03/03/19 20:30 Ordered Medication Orders Lactated Ringer's (Ringers, Lactated) 1,000 mls @ 125 mls/hr IV ASDIRECTED MAUREEN Morphine Sulfate (Morphine) 0 mg IVPUSH Q1H PRN PRN Reason: Pain (severe 7-10) Ondansetron HCl (Zofran) 4 mg IVPUSH Q6H PRN PRN Reason: Nausea/Vomiting Labs: Laboratory Tests 03/03/19 03/03/19 03/03/19 Range/Units 17:55 17:55 17:55 WBC 11.56 H (4.0-11.0) K/uL RBC 4.19 L (4.30-5.90) M/uL Hgb 12.7 (12.0-16.0) g/dL Hct 36.1 (36.0-46.0) % MCV 86.2 (80.0-98.0) fL MCH 30.3 (27.0-32.0) pg MCHC 35.2 (31.0-37.0) g/dL RDW Std Deviation 39.6 (28.0-62.0) fl RDW Coeff of Zeb 13 (11.0-15.0) % Plt Count 196 (150-400) K/uL MPV 9.80 (7.40-12.00) fL Neut % (Auto) 63.6 (48.0-80.0) % Lymph % (Auto) 27.8 (16.0-40.0) % [place] % (Auto) 7.5 (0.0-15.0) % Eos % (Auto) 1.0 (0.0-7.0) % Baso % (Auto) 0.1 (0.0-1.5) % Neut # (Auto) 7.4 H (1.4-5.7) K/uL Lymph # (Auto) 3.2 H (0.6-2.4) K/uL [place] # (Auto) 0.9 H (0.0-0.8) K/uL Eos # (Auto) 0.1 (0.0-0.7) K/uL Baso # (Auto) 0.0 (0.0-0.1) K/uL Nucleated RBC % 0.0 /100WBC Nucleated RBCs # 0 K/uL Sodium 137 (136-145) mmol/L Potassium 3.7 (3.5-5.1) mmol/L Chloride 100 (98-107) mmol/L Carbon Dioxide 24.7 (21.0-32.0) mmol/L BUN 9 (7.0-18.0) mg/dL Creatinine 0.7 (0.6-1.0) mg/dL Est Cr Clr Drug Dosing 97.21 mL/min Estimated GFR (MDRD) > 60.0 ml/min Glucose 98 (74-106) mg/dL Calcium 9.6 (8.5-10.1) mg/dL Total Bilirubin 0.3 (0.2-1.0) mg/dL AST 15 (15-37) IU/L ALT 21 (14-63) IU/L Alkaline Phosphatase 56 (46-116) U/L Total Protein 7.8 (6.4-8.2) g/dL Albumin 3.8 (3.4-5.0) g/dL Globulin 4.0 (2.6-4.0) g/dL Albumin/Globulin Ratio 0.9 (0.9-1.6) Lipase 91 (73-393) U/L HCG, Quant 39587.0 mIU/mL Urine Color Urine Appearance Urine pH (5.0-8.0) Ur Specific [place] (1.001-1.035) Urine Protein (NEGATIVE) mg/dL Urine Glucose (UA) (NEGATIVE) mg/dL Urine Ketones (NEGATIVE) mg/dL Urine Occult Blood (NEGATIVE) Urine Nitrite (NEGATIVE) Urine Bilirubin (NEGATIVE) Urine Urobilinogen (<2.0) EU/dL Ur Leukocyte Esterase (NEGATIVE) Urine RBC (0-2/HPF) Urine WBC (0-5/HPF) Ur Epithelial Cells (NONE-FEW) Urine Bacteria (NEGATIVE) 03/03/19 Range/Units 18:58 WBC (4.0-11.0) K/uL RBC (4.30-5.90) M/uL Hgb (12.0-16.0) g/dL Hct (36.0-46.0) % MCV (80.0-98.0) fL MCH (27.0-32.0) pg MCHC (31.0-37.0) g/dL RDW Std Deviation (28.0-62.0) fl RDW Coeff of Zeb (11.0-15.0) % Plt Count (150-400) K/uL MPV (7.40-12.00) fL Neut % (Auto) (48.0-80.0) % Lymph % (Auto) (16.0-40.0) % [place] % (Auto) (0.0-15.0) % Eos % (Auto) (0.0-7.0) % Baso % (Auto) (0.0-1.5) % Neut # (Auto) (1.4-5.7) K/uL Lymph # (Auto) (0.6-2.4) K/uL [place] # (Auto) (0.0-0.8) K/uL Eos # (Auto) (0.0-0.7) K/uL Baso # (Auto) (0.0-0.1) K/uL Nucleated RBC % /100WBC Nucleated RBCs # K/uL Sodium (136-145) mmol/L Potassium (3.5-5.1) mmol/L Chloride (98-107) mmol/L Carbon Dioxide (21.0-32.0) mmol/L BUN (7.0-18.0) mg/dL Creatinine (0.6-1.0) mg/dL Est Cr Clr Drug Dosing mL/min Estimated GFR (MDRD) ml/min Glucose (74-106) mg/dL Calcium (8.5-10.1) mg/dL Total Bilirubin (0.2-1.0) mg/dL AST (15-37) IU/L ALT (14-63) IU/L Alkaline Phosphatase (46-116) U/L Total Protein (6.4-8.2) g/dL Albumin (3.4-5.0) g/dL Globulin (2.6-4.0) g/dL Albumin/Globulin Ratio (0.9-1.6) Lipase (73-393) U/L HCG, Quant mIU/mL Urine Color BROWN Urine Appearance CLOUDY Urine pH 6.5 (5.0-8.0) Ur Specific [place] >= 1.030 (1.001-1.035) Urine Protein 30 H (NEGATIVE) mg/dL Urine Glucose (UA) NEGATIVE (NEGATIVE) mg/dL Urine Ketones TRACE H (NEGATIVE) mg/dL Urine Occult Blood LARGE H (NEGATIVE) Urine Nitrite NEGATIVE (NEGATIVE) Urine Bilirubin NEGATIVE (NEGATIVE) Urine Urobilinogen 0.2 (<2.0) EU/dL Ur Leukocyte Esterase TRACE H (NEGATIVE) Urine RBC 50-60 (0-2/HPF) Urine WBC 2-5 (0-5/HPF) Ur Epithelial Cells MODERATE (NONE-FEW) Urine Bacteria 1+ H (NEGATIVE) Meds: Medications Generic Name Dose Route Start Last Admin Trade Name Freq PRN Reason Stop Dose Admin Lactated Ringer's 1,000 mls @ 125 mls/hr 03/03/19 20:45 Ringers, Lactated IV ASDIRECTED MAUREEN Morphine Sulfate 0 mg 03/03/19 20:31 Morphine IVPUSH Q1H PRN Pain (severe 7-10) Ondansetron HCl 4 mg 03/03/19 20:31 Zofran IVPUSH Q6H PRN Nausea/Vomiting Discontinued Medications Generic Name Dose Route Start Last Admin Trade Name Freq PRN Reason Stop Dose Admin Sodium Chloride 1,000 mls @ 999 mls/hr 03/03/19 17:50 03/03/19 18:13 Normal Saline IV 03/03/19 18:50 999 mls/hr STAT ONE Administration Morphine Sulfate 2 mg 03/03/19 17:50 03/03/19 18:15 Morphine IVPUSH 03/03/19 17:51 2 mg ONETIME ONE Administration Morphine Sulfate 2 mg 03/03/19 19:24 03/03/19 19:44 Morphine IVPUSH 03/03/19 19:25 2 mg ONETIME ONE Administration Ondansetron HCl 8 mg 03/03/19 17:50 03/03/19 18:13 Zofran IVPUSH 03/03/19 17:51 8 mg ONETIME ONE Administration Departure - Departure Disposition: Refer to Observation Clinical Impression: Abdominal pain - Discharge Information Referrals: Seymour Tamayo MD [Primary Care Provider] - Forms: ED Department Discharge <Pramod Sarmiento - Last Filed: 03/03/19 20:35> ED HPI GENERAL MEDICAL PROBLEM - History of Present Illness INITIAL COMMENTS - FREE TEXT/NARRATIVE: Patient's emergency department course at that unremarkable general surgery was consulted Dr. Cee graciously saw the patient ED is an admit her for observation impression is #1 right lower quadrant abdominal pain #2 first trimester ED ROS GENERAL - Review of Systems Review Of Systems: ROS reveals no pertinent complaints other than HPI. ED EXAM, GENERAL - Physical Exam Exam: See Below (See dictation) Departure - Departure Time of Disposition: 20:35 Condition: Good
[2019-03-03] MEDS ORDERED: Ondansetron 4 MG/2 ML SDV IVPUSH ONE (17:50)
[2019-03-03] MEDS ORDERED: Morphine 2 MG/ML Syringe IVPUSH ONE ×2 (17:50→19:24)
[2019-03-03] MEDS ORDERED: Sodium Chloride 0.9% 1,000 ML IV ONE (17:50)
[2019-03-03 18:24] LABS: BLOOD UREA NITROGEN,BUN 9 mg/dL (7.0-18.0); CARBON DIOXIDE,CO2 24.7 mmol/L (21.0-32.0); CHLORIDE,CL 100 mmol/L (98-107); GLUCOSE RANDOM 98 mg/dL (74-106); LIPASE 91 U/L (73-393); POTASSIUM,K 3.7 mmol/L (3.5-5.1); SODIUM,NA 137 mmol/L (136-145)
--- NOTE | 2019-03-03 19:24 | US ---
HISTORY: Right lower quadrant pain. COMPARISON: None available. TECHNIQUE: Limited ultrasound examination of the abdomen was performed with attention to the right lower quadrant. FINDINGS: Ultrasound examination of the right lower quadrant fails to identify the appendix. Today`s study cannot exclude appendicitis. There are normal appearing loops of bowel in the right lower quadrant, with no sign of any free fluid. IMPRESSION: Nonvisualization of the appendix. Today`s study does not exclude appendicitis. No sign of any free fluid in the right lower quadrant. Dictated by Johan Junior MD @ Mar 03 2019 7:22PM Signed by Dr. Johan Junior @ Mar 03 2019 7:23PM
--- NOTE | 2019-03-03 19:28 | US ---
HISTORY: Right abdominal pain. History of irregular periods. LMP in August 2018 COMPARISON: None available of this gestation. TECHNIQUE: Transabdominal ultrasound examination of the early was performed. FINDINGS: A single intrauterine gestational sac is seen with a pole. The crown-rump length measurement of 45.8 cm gives an estimated gestational age of 11 weeks 3 days with an estimated date of delivery of 09/19/2019. The patient is unsure of her LMP. Regular cardiac activity is seen at 164 BPM. There is no sign of free fluid in the pelvis. The adnexal are normal in appearance. IMPRESSION: Single intrauterine gestation with estimated age of 11 weeks 3 days. Regular cardiac activity is seen. Dictated by Johan Junior MD @ Mar 03 2019 7:23PM Signed by Dr. Johan Junior @ Mar 03 2019 7:26PM
[2019-03-03] MEDS ORDERED: Ondansetron 4 MG/2 ML SDV IVPUSH PRN (20:31)
--- NOTE | 2019-03-03 20:38 | PCM.CONS ---
H&P History of Present Illness - General Date of Service: 03/03/19 Admit Problem/Dx: Admission Diagnosis/Problem Admission Diagnosis/Problem Right lower quadrant abdominal pain of unknown etiology Source of Information: Patient, Family History Limitations: Reports: No Limitations - History of Present Illness Initial Comments - Free Text/Narative: Patient is a 28-year-old female, who is a patient of Dr. Terri Kan. She is approximately 10-11 weeks . She had noticed some bloody urine yesterday and presented to see Dr. Tamayo today. Urinalysis service suggested a urinary tract infection and she was started on Macrobid. This afternoon she was out shopping and had sudden onset of severe right-sided abdominal and flank pain. She presented to the emergency room and has been evaluated there. Because of her , a CT scan was not done. Ultrasound did not document the appendix in the sense that they could not see it. Her white count is minimally elevated at 11,000. She has not had any nausea or vomiting. She does not have any significant discomfort with ambulation. She had been given pain medicine prior to my arrival. Onset of Symptoms: Reports: Today Location: Reports: Abdomen Quality: Reports: Sharp, Stabbing Severity: Moderate Improves with: Reports: Rest Worsens with: Reports: Movement Context: Denies: Sick Contact Associated Symptoms: Reports: No Other Symptoms Left side Pain Score (Numeric/FACES): 8 - Related Data Allergies/Adverse Reactions: Allergies Allergy/AdvReac Type Severity Reaction Status Date / Time No Known Allergies Allergy Verified 03/03/19 17:45 Home Medications: Home Meds Aspirin 81 mg PO DAILY 03/03/19 [History] Past Medical History - Past Health History Medical/Surgical History: Denies Medical/Surgical History HEENT History: Reports: Other (See Below) Other HEENT History: wears glasses/contacts Cardiovascular History: Reports: None, Other (See Below) (h/o induced hypertension) Respiratory History: Reports: None Gastrointestinal History: Reports: Other (See Below) (h/o IBS) Genitourinary History: Reports: Other (See Below) (stress incontinence) INSTRUMENTATION FITTER History: Reports: Ectopic Musculoskeletal History: Reports: Fracture, Other (See Below) Other Musculoskeletal History: fx jaw Neurological History: Reports: Migraines Psychiatric History: Reports: Anxiety, Other (See Below) Endocrine/Metabolic History: Reports: Obesity/BMI 30+ (BMI 40.6) Hematologic History: Reports: None Immunologic History: Reports: None Oncologic (Cancer) History: Reports: None Dermatologic History: Reports: Psoriasis - Infectious Disease History Infectious Disease History: Reports: Chicken Pox, Other (See Below) ( hydradenitis suppurativa left axilla) - Past Surgical History Head Surgeries/Procedures: Reports: None HEENT Surgical History: Reports: Adenoidectomy, Oral Surgery, Tonsillectomy Other HEENT Surgeries/Procedures: jaw surgery to correct underbite (has plates and screws), wisdom teeth removed GI Surgical History: Reports: Cholecystectomy, Colonoscopy, Other (See Below) ( diagnostic laparoscopy) Female Surgical History: Reports: D&C, Other (See Below) Other Female Surgeries/Procedures: Laparoscopy for excision of Ectopic Musculoskeletal Surgical History: Reports: Carpal Tunnel Other Musculoskeletal Surgeries/Procedures:: bilateral CTR Social & Family History - Family History Family Medical History: Noncontributory - Tobacco Use Smoking Status *Q: Never Smoker - Caffeine Use Caffeine Use: Reports: None - Recreational Drug Use Recreational Drug Use: No H&P Review of Systems - Review of Systems: Review Of Systems: See Below General: Denies: Fever, Chills, Malaise, Decreased Appetite HEENT: Reports: No Symptoms Pulmonary: Denies: Shortness of Breath, Wheezing Cardiovascular: Denies: Chest Pain, Palpitations Gastrointestinal: Reports: Abdominal Pain, Flatus. Denies: Anorexia, Black Stool, Bloody Stool, Constipation, Diarrhea, Decreased Appetite, Distension, Hematemesis, Hematochezia, Melena, Nausea, Vomiting Genitourinary: Reports: Dysuria, Burning, Pain, Urgency, Hematuria, Flank Pain Musculoskeletal: Reports: No Symptoms Skin: Denies: Cyanosis, Jaundice, Mottled, Pallor Psychiatric: Reports: Anxiety. Denies: Confusion Neurological: Reports: No Symptoms Hematologic/Lymphatic: Reports: No Symptoms Immunologic: Reports: No Symptoms Exam - Exam Exam: See Below - Vital Signs Vital Signs: Last Vital Signs Temp 97.0 F 03/03/19 19:11 Pulse 72 03/03/19 19:11 Resp 20 03/03/19 19:11 BP 154/86 H 03/03/19 19:11 Pulse Ox 100 03/03/19 19:11 Weight: 232 lb - Exam Quality Assessment: No: Supplemental Oxygen, Central Line/PICC, Urinary Catheter General: Alert, Oriented, Cooperative, Mild Distress HEENT: Conjunctiva Clear, EACs Clear, Hearing Intact, PERRLA. No: Scleral Icterus Neck: Supple, Trachea Midline, +2 Carotid Pulse wo Bruit Lungs: Clear to Auscultation, Normal Respiratory Effort, Wheezing Cardiovascular: Regular Rate, Regular Rhythm, Normal S1. No: Tachycardia, Systolic Murmur, Diastolic Murmur GI/Abdominal Exam: Normal Bowel Sounds, Soft, Non-Tender, No Distention, No Mass. No: Rebound (Female) Exam: Deferred Rectal (Female) Exam: Deferred Back Exam: Normal Inspection Extremities: Normal Inspection, Normal Range of Motion, Normal Capillary Refill Peripheral Pulses: 4+: Posterior Tibial (L), Posterior Tibial (R), Dorsalis Pedis (L), Dorsalis Pedis (R) Skin: Warm, Dry, Intact Neurological: Cranial Nerves Intact Psychiatric: Alert, Normal Affect, Normal Mood - Patient Data Lab Results Last 24 hrs: Laboratory Results - last 24 hr 03/03/19 03/03/19 03/03/19 Range/Units 17:55 17:55 17:55 WBC 11.56 H (4.0-11.0) K/uL RBC 4.19 L (4.30-5.90) M/uL Hgb 12.7 (12.0-16.0) g/dL Hct 36.1 (36.0-46.0) % MCV 86.2 (80.0-98.0) fL MCH 30.3 (27.0-32.0) pg MCHC 35.2 (31.0-37.0) g/dL RDW Std Deviation 39.6 (28.0-62.0) fl RDW Coeff of Zeb 13 (11.0-15.0) % Plt Count 196 (150-400) K/uL MPV 9.80 (7.40-12.00) fL Neut % (Auto) 63.6 (48.0-80.0) % Lymph % (Auto) 27.8 (16.0-40.0) % [place] % (Auto) 7.5 (0.0-15.0) % Eos % (Auto) 1.0 (0.0-7.0) % Baso % (Auto) 0.1 (0.0-1.5) % Neut # (Auto) 7.4 H (1.4-5.7) K/uL Lymph # (Auto) 3.2 H (0.6-2.4) K/uL [place] # (Auto) 0.9 H (0.0-0.8) K/uL Eos # (Auto) 0.1 (0.0-0.7) K/uL Baso # (Auto) 0.0 (0.0-0.1) K/uL Nucleated RBC % 0.0 /100WBC Nucleated RBCs # 0 K/uL Sodium 137 (136-145) mmol/L Potassium 3.7 (3.5-5.1) mmol/L Chloride 100 (98-107) mmol/L Carbon Dioxide 24.7 (21.0-32.0) mmol/L BUN 9 (7.0-18.0) mg/dL Creatinine 0.7 (0.6-1.0) mg/dL Est Cr Clr Drug Dosing 97.21 mL/min Estimated GFR (MDRD) > 60.0 ml/min Glucose 98 (74-106) mg/dL Calcium 9.6 (8.5-10.1) mg/dL Total Bilirubin 0.3 (0.2-1.0) mg/dL AST 15 (15-37) IU/L ALT 21 (14-63) IU/L Alkaline Phosphatase 56 (46-116) U/L Total Protein 7.8 (6.4-8.2) g/dL Albumin 3.8 (3.4-5.0) g/dL Globulin 4.0 (2.6-4.0) g/dL Albumin/Globulin Ratio 0.9 (0.9-1.6) Lipase 91 (73-393) U/L HCG, Quant 48919.0 mIU/mL Urine Color Urine Appearance Urine pH (5.0-8.0) Ur Specific [place] (1.001-1.035) Urine Protein (NEGATIVE) mg/dL Urine Glucose (UA) (NEGATIVE) mg/dL Urine Ketones (NEGATIVE) mg/dL Urine Occult Blood (NEGATIVE) Urine Nitrite (NEGATIVE) Urine Bilirubin (NEGATIVE) Urine Urobilinogen (<2.0) EU/dL Ur Leukocyte Esterase (NEGATIVE) Urine RBC (0-2/HPF) Urine WBC (0-5/HPF) Ur Epithelial Cells (NONE-FEW) Urine Bacteria (NEGATIVE) 03/03/19 Range/Units 18:58 WBC (4.0-11.0) K/uL RBC (4.30-5.90) M/uL Hgb (12.0-16.0) g/dL Hct (36.0-46.0) % MCV (80.0-98.0) fL MCH (27.0-32.0) pg MCHC (31.0-37.0) g/dL RDW Std Deviation (28.0-62.0) fl RDW Coeff of Zeb (11.0-15.0) % Plt Count (150-400) K/uL MPV (7.40-12.00) fL Neut % (Auto) (48.0-80.0) % Lymph % (Auto) (16.0-40.0) % [place] % (Auto) (0.0-15.0) % Eos % (Auto) (0.0-7.0) % Baso % (Auto) (0.0-1.5) % Neut # (Auto) (1.4-5.7) K/uL Lymph # (Auto) (0.6-2.4) K/uL [place] # (Auto) (0.0-0.8) K/uL Eos # (Auto) (0.0-0.7) K/uL Baso # (Auto) (0.0-0.1) K/uL Nucleated RBC % /100WBC Nucleated RBCs # K/uL Sodium (136-145) mmol/L Potassium (3.5-5.1) mmol/L Chloride (98-107) mmol/L Carbon Dioxide (21.0-32.0) mmol/L BUN (7.0-18.0) mg/dL Creatinine (0.6-1.0) mg/dL Est Cr Clr Drug Dosing mL/min Estimated GFR (MDRD) ml/min Glucose (74-106) mg/dL Calcium (8.5-10.1) mg/dL Total Bilirubin (0.2-1.0) mg/dL AST (15-37) IU/L ALT (14-63) IU/L Alkaline Phosphatase (46-116) U/L Total Protein (6.4-8.2) g/dL Albumin (3.4-5.0) g/dL Globulin (2.6-4.0) g/dL Albumin/Globulin Ratio (0.9-1.6) Lipase (73-393) U/L HCG, Quant mIU/mL Urine Color BROWN Urine Appearance CLOUDY Urine pH 6.5 (5.0-8.0) Ur Specific [place] >= 1.030 (1.001-1.035) Urine Protein 30 H (NEGATIVE) mg/dL Urine Glucose (UA) NEGATIVE (NEGATIVE) mg/dL Urine Ketones TRACE H (NEGATIVE) mg/dL Urine Occult Blood LARGE H (NEGATIVE) Urine Nitrite NEGATIVE (NEGATIVE) Urine Bilirubin NEGATIVE (NEGATIVE) Urine Urobilinogen 0.2 (<2.0) EU/dL Ur Leukocyte Esterase TRACE H (NEGATIVE) Urine RBC 50-60 (0-2/HPF) Urine WBC 2-5 (0-5/HPF) Ur Epithelial Cells MODERATE (NONE-FEW) Urine Bacteria 1+ H (NEGATIVE) Result Diagrams: 03/03/19 17:55 03/03/19 17:55 Consult PN Assessment/Plan Procedures: Procedures ASSAY OF AMYLASE (11/24/13) ASSAY OF LIPASE (01/07/14) ASSAY OF PROTEIN URINE (04/11/15) BLOOD TYPING SEROLOGIC ABO (12/06/14) BLOOD TYPING SEROLOGIC RH(D) (12/06/14) C-REACTIVE PROTEIN (10/22/17) IVORY DNA DIR PROBE (02/17/19) CARPAL TUNNEL SURGERY (08/07/17) CHORIONIC GONADOTROPIN ASSAY (01/07/14) CHORIONIC GONADOTROPIN TEST (09/23/14) CHYLMD TRACH DNA AMP PROBE (02/17/19) COMPLETE CBC AUTOMATED (12/06/14) COMPLETE CBC W/AUTO DIFF WBC (10/22/17) COMPREHEN METABOLIC PANEL (10/22/17) CT ABD & PELV 1/> REGNS (10/07/13) CULTURE OTHR SPECIMN AEROBIC (10/08/14) CULTURE SCREEN ONLY (04/11/15) DRUG TEST PRSMV DIR OPT OBS (02/17/19) ECHO EXAM OF ABDOMEN (11/24/13) EMERGENCY DEPT VISIT (10/22/17) EMERGENCY DEPT VISIT (03/16/15) EMERGENCY DEPT VISIT (01/07/14) NON-STRESS TEST (04/11/15) WHITEHEAD VAG DNA DIR PROBE (02/17/19) GLUCOSE TEST (01/27/15) GLUCOSE TOLERANCE TEST (GTT) (01/31/15) HELICOBACTER PYLORI ANTIBODY (11/26/13) HEMATOCRIT (01/27/15) HEMOGLOBIN (01/27/15) HEPATITIS B SURFACE AG IA (12/06/14) HEPATITIS BE ANTIBODY (09/08/15) HEPATITIS C AB TEST (09/08/15) HIV-1 AG W/HIV-1 & HIV-2 AB (09/08/15) HIV-1/HIV-2 1 RESULT ANTBDY (12/06/14) HPV HIGH-RISK TYPES (07/17/16) HYDRATE IV INFUSION ADD-ON (01/07/14) LAPAROSCOPIC CHOLECYSTECTOMY (10/19/13) N.GONORRHOEAE DNA AMP PROB (02/17/19) OB US < 14 WKS SINGLE FETUS (09/27/14) OB US >/= 14 WKS SNGL FETUS (12/06/14) RBC ANTIBODY SCREEN (12/06/14) RBC SED RATE AUTOMATED (10/22/17) REMOVAL SWEAT GLAND LESION (06/13/18) ROUTINE VENIPUNCTURE (10/22/17) RUBELLA ANTIBODY (12/06/14) SYPHILIS TEST NON-TREP QUAL (12/06/14) THER/PROPH/DIAG INJ IV PUSH (01/07/14) TISSUE EXAM BY PATHOLOGIST (10/19/13) TRANSVAGINAL US OBSTETRIC (11/29/14) TRICHOMONAS VAGIN DIR PROBE (02/17/19) TX/PRO/DX INJ NEW DRUG ADDON (01/07/14) URINALYSIS AUTO W/O SCOPE (02/17/19) URINALYSIS AUTO W/SCOPE (03/14/15) URINE CULTURE/COLONY COUNT (02/17/19) URINE TEST (06/13/18) VITAMIN B-12 (07/15/14) X-RAY EXAM OF FOOT (09/26/15) (1) Right lower quadrant abdominal pain affecting in first trimester SNOMED Code(s): 402164263, 350110956 Code(s): O26.891 - OTH RELATED CONDITIONS, FIRST TRIMESTER; R10.31 - RIGHT LOWER QUADRANT PAIN Priority: High Current Visit: Yes Problem List Initiated/Reviewed/Updated: Yes My Orders Last 24 Hours: My Active Orders 03/03/19 20:30 Oxygen Therapy [RC] PRN Pulse Oximetry [RC] INTERMITTENT Up ad Fiona [RC] ASDIRECTED Vital Signs [RC] PER UNIT ROUTINE Resuscitation Status Routine 03/03/19 20:31 Morphine See Dose Instructions IVPUSH Q1H PRN Ondansetron [Zofran] 4 mg IVPUSH Q6H PRN 03/03/19 20:32 Patient Status [ADT] Routine 03/03/19 20:45 Lactated Ringers @ 125 MLS/HR(1000ml) Lactated Ringers [Ringers, Lactated] 1, 000 ml IV ASDIRECTED 03/03/19 Dinner Clear Liquid Diet [DIET] Nothing Per Oral Diet [DIET] 03/04/19 05:11 CBC WITH AUTO DIFF [HEME] AM Plan: Spoke with Dr. Tamayo who will see her tomorrow. Admit for observation. Pain and nausea control. Repeat CBC in am. If WBC becomes elevated, consider CT scan to r/o appendicitis.
[2019-03-03] MEDS ORDERED: Lactated Ringers 1,000 ML IV SCH (20:45)
[2019-03-03] MEDS: Morphine 10 MG/ML Syringe IVPUSH PRN ×2 (21:23→23:18)
[2019-03-04] MEDS: Morphine 10 MG/ML Syringe IVPUSH PRN ×2 (02:06→05:10)
--- NOTE | 2019-03-04 09:19 | PCM.PN ---
- General Info Date of Service: 03/04/19 Admission Dx/Problem (Free Text): RLQ pain Subjective Update: Patient states she is feeling a little better, rating her pain a "3". Her WBC has gone up slightly. Functional Status: Reports: Pain Controlled, Ambulating - Review of Systems General: Denies: Fever, Weakness, Fatigue HEENT: Reports: No Symptoms Pulmonary: Reports: No Symptoms Cardiovascular: Denies: Chest Pain, Palpitations Gastrointestinal: Reports: Abdominal Pain, Flatus. Denies: Constipation, Decreased Appetite, Diarrhea, Nausea, Vomiting Genitourinary: Reports: Dysuria, Burning, Pain Musculoskeletal: Reports: No Symptoms Skin: Reports: No Symptoms Neurological: Reports: No Symptoms Psychiatric: Reports: No Symptoms - Patient Data Vitals - Most Recent: Last Vital Signs Temp 97.5 F 03/04/19 07:43 Pulse 84 03/04/19 07:43 Resp 18 03/04/19 07:43 BP 96/48 L 03/04/19 07:43 Pulse Ox 97 03/04/19 07:43 Weight - Most Recent: 232 lb I&O - Last 24 Hours: Intake & Output 03/03/19 03/04/19 03/04/19 19:59 03:59 11:59 Intake Total 1200 Output Total 300 Balance 900 Lab Results Last 24 Hours: Laboratory Results - last 24 hr 03/03/19 03/03/19 03/03/19 Range/Units 17:55 17:55 17:55 WBC 11.56 H (4.0-11.0) K/uL RBC 4.19 L (4.30-5.90) M/uL Hgb 12.7 (12.0-16.0) g/dL Hct 36.1 (36.0-46.0) % MCV 86.2 (80.0-98.0) fL MCH 30.3 (27.0-32.0) pg MCHC 35.2 (31.0-37.0) g/dL RDW Std Deviation 39.6 (28.0-62.0) fl RDW Coeff of Zeb 13 (11.0-15.0) % Plt Count 196 (150-400) K/uL MPV 9.80 (7.40-12.00) fL Neut % (Auto) 63.6 (48.0-80.0) % Lymph % (Auto) 27.8 (16.0-40.0) % [place] % (Auto) 7.5 (0.0-15.0) % Eos % (Auto) 1.0 (0.0-7.0) % Baso % (Auto) 0.1 (0.0-1.5) % Neut # (Auto) 7.4 H (1.4-5.7) K/uL Lymph # (Auto) 3.2 H (0.6-2.4) K/uL [place] # (Auto) 0.9 H (0.0-0.8) K/uL Eos # (Auto) 0.1 (0.0-0.7) K/uL Baso # (Auto) 0.0 (0.0-0.1) K/uL Nucleated RBC % 0.0 /100WBC Nucleated RBCs # 0 K/uL Sodium 137 (136-145) mmol/L Potassium 3.7 (3.5-5.1) mmol/L Chloride 100 (98-107) mmol/L Carbon Dioxide 24.7 (21.0-32.0) mmol/L BUN 9 (7.0-18.0) mg/dL Creatinine 0.7 (0.6-1.0) mg/dL Est Cr Clr Drug Dosing 97.21 mL/min Estimated GFR (MDRD) > 60.0 ml/min Glucose 98 (74-106) mg/dL Calcium 9.6 (8.5-10.1) mg/dL Total Bilirubin 0.3 (0.2-1.0) mg/dL AST 15 (15-37) IU/L ALT 21 (14-63) IU/L Alkaline Phosphatase 56 (46-116) U/L Total Protein 7.8 (6.4-8.2) g/dL Albumin 3.8 (3.4-5.0) g/dL Globulin 4.0 (2.6-4.0) g/dL Albumin/Globulin Ratio 0.9 (0.9-1.6) Lipase 91 (73-393) U/L HCG, Quant 11213.0 mIU/mL Urine Color Urine Appearance Urine pH (5.0-8.0) Ur Specific [place] (1.001-1.035) Urine Protein (NEGATIVE) mg/dL Urine Glucose (UA) (NEGATIVE) mg/dL Urine Ketones (NEGATIVE) mg/dL Urine Occult Blood (NEGATIVE) Urine Nitrite (NEGATIVE) Urine Bilirubin (NEGATIVE) Urine Urobilinogen (<2.0) EU/dL Ur Leukocyte Esterase (NEGATIVE) Urine RBC (0-2/HPF) Urine WBC (0-5/HPF) Ur Epithelial Cells (NONE-FEW) Urine Bacteria (NEGATIVE) 03/03/19 03/04/19 Range/Units 18:58 04:48 WBC 12.80 H (4.0-11.0) K/uL RBC 3.73 L (4.30-5.90) M/uL Hgb 11.2 L (12.0-16.0) g/dL Hct 32.5 L (36.0-46.0) % MCV 87.1 (80.0-98.0) fL MCH 30.0 (27.0-32.0) pg MCHC 34.5 (31.0-37.0) g/dL RDW Std Deviation 40.7 (28.0-62.0) fl RDW Coeff of Zeb 13 (11.0-15.0) % Plt Count 163 (150-400) K/uL MPV 9.80 (7.40-12.00) fL Neut % (Auto) 76.6 (48.0-80.0) % Lymph % (Auto) 17.1 (16.0-40.0) % [place] % (Auto) 5.8 (0.0-15.0) % Eos % (Auto) 0.4 (0.0-7.0) % Baso % (Auto) 0.1 (0.0-1.5) % Neut # (Auto) 9.8 H (1.4-5.7) K/uL Lymph # (Auto) 2.2 (0.6-2.4) K/uL [place] # (Auto) 0.7 (0.0-0.8) K/uL Eos # (Auto) 0.1 (0.0-0.7) K/uL Baso # (Auto) 0.0 (0.0-0.1) K/uL Nucleated RBC % 0.0 /100WBC Nucleated RBCs # 0 K/uL Sodium (136-145) mmol/L Potassium (3.5-5.1) mmol/L Chloride (98-107) mmol/L Carbon Dioxide (21.0-32.0) mmol/L BUN (7.0-18.0) mg/dL Creatinine (0.6-1.0) mg/dL Est Cr Clr Drug Dosing mL/min Estimated GFR (MDRD) ml/min Glucose (74-106) mg/dL Calcium (8.5-10.1) mg/dL Total Bilirubin (0.2-1.0) mg/dL AST (15-37) IU/L ALT (14-63) IU/L Alkaline Phosphatase (46-116) U/L Total Protein (6.4-8.2) g/dL Albumin (3.4-5.0) g/dL Globulin (2.6-4.0) g/dL Albumin/Globulin Ratio (0.9-1.6) Lipase (73-393) U/L HCG, Quant mIU/mL Urine Color BROWN Urine Appearance CLOUDY Urine pH 6.5 (5.0-8.0) Ur Specific [place] >= 1.030 (1.001-1.035) Urine Protein 30 H (NEGATIVE) mg/dL Urine Glucose (UA) NEGATIVE (NEGATIVE) mg/dL Urine Ketones TRACE H (NEGATIVE) mg/dL Urine Occult Blood LARGE H (NEGATIVE) Urine Nitrite NEGATIVE (NEGATIVE) Urine Bilirubin NEGATIVE (NEGATIVE) Urine Urobilinogen 0.2 (<2.0) EU/dL Ur Leukocyte Esterase TRACE H (NEGATIVE) Urine RBC 50-60 (0-2/HPF) Urine WBC 2-5 (0-5/HPF) Ur Epithelial Cells MODERATE (NONE-FEW) Urine Bacteria 1+ H (NEGATIVE) Med Orders - Current: Current Medications Lactated Ringer's (Ringers, Lactated) 1,000 mls @ 125 mls/hr IV ASDIRECTED MAUREEN Last Admin: 03/03/19 21:38 Dose: 125 mls/hr Morphine Sulfate (Morphine) 0 mg IVPUSH Q1H PRN PRN Reason: Pain (severe 7-10) Last Admin: 03/04/19 05:10 Dose: 3 mg Ondansetron HCl (Zofran) 4 mg IVPUSH Q6H PRN PRN Reason: Nausea/Vomiting Last Admin: 03/03/19 21:27 Dose: 4 mg Discontinued Medications Sodium Chloride (Normal Saline) 1,000 mls @ 999 mls/hr IV STAT ONE Stop: 03/03/19 18:50 Last Admin: 03/03/19 18:13 Dose: 999 mls/hr Morphine Sulfate (Morphine) 2 mg IVPUSH ONETIME ONE Stop: 03/03/19 17:51 Last Admin: 03/03/19 18:15 Dose: 2 mg Morphine Sulfate (Morphine) 2 mg IVPUSH ONETIME ONE Stop: 03/03/19 19:25 Last Admin: 03/03/19 19:44 Dose: 2 mg Ondansetron HCl (Zofran) 8 mg IVPUSH ONETIME ONE Stop: 03/03/19 17:51 Last Admin: 03/03/19 18:13 Dose: 8 mg - Exam General: Alert, Oriented, Cooperative, Mild Distress HEENT: Pupils Equal, Pupils Reactive. No: Scleral Icterus Neck: Supple, Trachea Midline Lungs: Clear to Auscultation, Normal Respiratory Effort Cardiovascular: Regular Rate, Regular Rhythm. No: Tachycardia GI/Abdominal Exam: Normal Bowel Sounds, Soft, Tender (mild rlq tenderness.). No : Rigid, Rebound (Female) Exam: Deferred Back Exam: Normal Inspection Extremities: Normal Inspection Skin: Warm, Dry, Intact Neurological: No New Focal Deficit Psy/Mental Status: Alert, Normal Affect, Normal Mood - Problem List & Annotations (1) Right lower quadrant abdominal pain affecting in first trimester SNOMED Code(s): 199942251, 571433747 Code(s): O26.891 - OTH RELATED CONDITIONS, FIRST TRIMESTER; R10.31 - RIGHT LOWER QUADRANT PAIN Status: Acute Priority: High Current Visit: Yes - Problem List Review Problem List Initiated/Reviewed/Updated: Yes - My Orders Last 24 Hours: My Active Orders 03/03/19 20:30 Oxygen Therapy [RC] PRN Pulse Oximetry [RC] INTERMITTENT Up ad Fiona [RC] ASDIRECTED Vital Signs [RC] PER UNIT ROUTINE Resuscitation Status Routine 03/03/19 20:31 Morphine See Dose Instructions IVPUSH Q1H PRN Ondansetron [Zofran] 4 mg IVPUSH Q6H PRN 03/03/19 20:32 Patient Status [ADT] Routine 03/03/19 20:45 Lactated Ringers [Ringers, Lactated] 1,000 ml IV ASDIRECTED 03/03/19 Dinner Nothing Per Oral Diet [DIET] 03/04/19 08:28 CTA Abd Pelv w Cont [CT] Urgent 03/04/19 08:59 Abdomen wo Cont [MR] Stat 03/04/19 09:00 Ang Pelvis wo Cont [MR] Routine Ang Pelvis wo Cont [MR] Routine - Assessment Assessment:: Pain is controlled but WBC has increased slightly. - Plan Plan:: Will do imaging studies today. I had ordered a CT scan at Dr. Tamayo's recommendation. Because of her , CRL recommended an MRI. Accordingly , the order was changed. Dr. Tamayo does feel a CT scan is safe and will be speaking to the nursing staff and radiology. Either a CT or MRI will be done this morning to r/o appendicitis.
--- NOTE | 2019-03-04 10:24 | PCM.PN ---
- General Info Date of Service: 03/04/19 Functional Status: Reports: Pain Controlled - Review of Systems General: Reports: No Symptoms HEENT: Reports: No Symptoms Pulmonary: Reports: No Symptoms Cardiovascular: Reports: No Symptoms Gastrointestinal: Reports: No Symptoms Genitourinary: Reports: No Symptoms Musculoskeletal: Reports: No Symptoms Skin: Reports: No Symptoms Neurological: Reports: No Symptoms Psychiatric: Reports: No Symptoms - Patient Data Vitals - Most Recent: Last Vital Signs Temp 36.4 C 03/04/19 07:43 Pulse 84 03/04/19 07:43 Resp 18 03/04/19 07:43 BP 96/48 L 03/04/19 07:43 Pulse Ox 97 03/04/19 07:43 Weight - Most Recent: 105.233 kg I&O - Last 24 Hours: Intake & Output 03/03/19 03/04/19 03/04/19 22:59 06:59 14:59 Intake Total 1200 Output Total 300 Balance 900 Lab Results Last 24 Hours: Laboratory Results - last 24 hr 03/03/19 03/03/19 03/03/19 Range/Units 17:55 17:55 17:55 WBC 11.56 H (4.0-11.0) K/uL RBC 4.19 L (4.30-5.90) M/uL Hgb 12.7 (12.0-16.0) g/dL Hct 36.1 (36.0-46.0) % MCV 86.2 (80.0-98.0) fL MCH 30.3 (27.0-32.0) pg MCHC 35.2 (31.0-37.0) g/dL RDW Std Deviation 39.6 (28.0-62.0) fl RDW Coeff of Zeb 13 (11.0-15.0) % Plt Count 196 (150-400) K/uL MPV 9.80 (7.40-12.00) fL Neut % (Auto) 63.6 (48.0-80.0) % Lymph % (Auto) 27.8 (16.0-40.0) % [place] % (Auto) 7.5 (0.0-15.0) % Eos % (Auto) 1.0 (0.0-7.0) % Baso % (Auto) 0.1 (0.0-1.5) % Neut # (Auto) 7.4 H (1.4-5.7) K/uL Lymph # (Auto) 3.2 H (0.6-2.4) K/uL [place] # (Auto) 0.9 H (0.0-0.8) K/uL Eos # (Auto) 0.1 (0.0-0.7) K/uL Baso # (Auto) 0.0 (0.0-0.1) K/uL Nucleated RBC % 0.0 /100WBC Nucleated RBCs # 0 K/uL Sodium 137 (136-145) mmol/L Potassium 3.7 (3.5-5.1) mmol/L Chloride 100 (98-107) mmol/L Carbon Dioxide 24.7 (21.0-32.0) mmol/L BUN 9 (7.0-18.0) mg/dL Creatinine 0.7 (0.6-1.0) mg/dL Est Cr Clr Drug Dosing 97.21 mL/min Estimated GFR (MDRD) > 60.0 ml/min Glucose 98 (74-106) mg/dL Calcium 9.6 (8.5-10.1) mg/dL Total Bilirubin 0.3 (0.2-1.0) mg/dL AST 15 (15-37) IU/L ALT 21 (14-63) IU/L Alkaline Phosphatase 56 (46-116) U/L Total Protein 7.8 (6.4-8.2) g/dL Albumin 3.8 (3.4-5.0) g/dL Globulin 4.0 (2.6-4.0) g/dL Albumin/Globulin Ratio 0.9 (0.9-1.6) Lipase 91 (73-393) U/L HCG, Quant 36210.0 mIU/mL Urine Color Urine Appearance Urine pH (5.0-8.0) Ur Specific Muse (1.001-1.035) Urine Protein (NEGATIVE) mg/dL Urine Glucose (UA) (NEGATIVE) mg/dL Urine Ketones (NEGATIVE) mg/dL Urine Occult Blood (NEGATIVE) Urine Nitrite (NEGATIVE) Urine Bilirubin (NEGATIVE) Urine Urobilinogen (<2.0) EU/dL Ur Leukocyte Esterase (NEGATIVE) Urine RBC (0-2/HPF) Urine WBC (0-5/HPF) Ur Epithelial Cells (NONE-FEW) Urine Bacteria (NEGATIVE) 03/03/19 03/04/19 Range/Units 18:58 04:48 WBC 12.80 H (4.0-11.0) K/uL RBC 3.73 L (4.30-5.90) M/uL Hgb 11.2 L (12.0-16.0) g/dL Hct 32.5 L (36.0-46.0) % MCV 87.1 (80.0-98.0) fL MCH 30.0 (27.0-32.0) pg MCHC 34.5 (31.0-37.0) g/dL RDW Std Deviation 40.7 (28.0-62.0) fl RDW Coeff of Zeb 13 (11.0-15.0) % Plt Count 163 (150-400) K/uL MPV 9.80 (7.40-12.00) fL Neut % (Auto) 76.6 (48.0-80.0) % Lymph % (Auto) 17.1 (16.0-40.0) % [place] % (Auto) 5.8 (0.0-15.0) % Eos % (Auto) 0.4 (0.0-7.0) % Baso % (Auto) 0.1 (0.0-1.5) % Neut # (Auto) 9.8 H (1.4-5.7) K/uL Lymph # (Auto) 2.2 (0.6-2.4) K/uL [place] # (Auto) 0.7 (0.0-0.8) K/uL Eos # (Auto) 0.1 (0.0-0.7) K/uL Baso # (Auto) 0.0 (0.0-0.1) K/uL Nucleated RBC % 0.0 /100WBC Nucleated RBCs # 0 K/uL Sodium (136-145) mmol/L Potassium (3.5-5.1) mmol/L Chloride (98-107) mmol/L Carbon Dioxide (21.0-32.0) mmol/L BUN (7.0-18.0) mg/dL Creatinine (0.6-1.0) mg/dL Est Cr Clr Drug Dosing mL/min Estimated GFR (MDRD) ml/min Glucose (74-106) mg/dL Calcium (8.5-10.1) mg/dL Total Bilirubin (0.2-1.0) mg/dL AST (15-37) IU/L ALT (14-63) IU/L Alkaline Phosphatase (46-116) U/L Total Protein (6.4-8.2) g/dL Albumin (3.4-5.0) g/dL Globulin (2.6-4.0) g/dL Albumin/Globulin Ratio (0.9-1.6) Lipase (73-393) U/L HCG, Quant mIU/mL Urine Color BROWN Urine Appearance CLOUDY Urine pH 6.5 (5.0-8.0) Ur Specific [place] >= 1.030 (1.001-1.035) Urine Protein 30 H (NEGATIVE) mg/dL Urine Glucose (UA) NEGATIVE (NEGATIVE) mg/dL Urine Ketones TRACE H (NEGATIVE) mg/dL Urine Occult Blood LARGE H (NEGATIVE) Urine Nitrite NEGATIVE (NEGATIVE) Urine Bilirubin NEGATIVE (NEGATIVE) Urine Urobilinogen 0.2 (<2.0) EU/dL Ur Leukocyte Esterase TRACE H (NEGATIVE) Urine RBC 50-60 (0-2/HPF) Urine WBC 2-5 (0-5/HPF) Ur Epithelial Cells MODERATE (NONE-FEW) Urine Bacteria 1+ H (NEGATIVE) Med Orders - Current: Current Medications Lactated Ringer's (Ringers, Lactated) 1,000 mls @ 125 mls/hr IV ASDIRECTED [facility] Last Admin: 03/03/19 21:38 Dose: 125 mls/hr Morphine Sulfate (Morphine) 0 mg IVPUSH Q1H PRN PRN Reason: Pain (severe 7-10) Last Admin: 03/04/19 05:10 Dose: 3 mg Ondansetron HCl (Zofran) 4 mg IVPUSH Q6H PRN PRN Reason: Nausea/Vomiting Last Admin: 03/03/19 21:27 Dose: 4 mg Discontinued Medications Sodium Chloride (Normal Saline) 1,000 mls @ 999 mls/hr IV STAT ONE Stop: 03/03/19 18:50 Last Admin: 03/03/19 18:13 Dose: 999 mls/hr Morphine Sulfate (Morphine) 2 mg IVPUSH ONETIME ONE Stop: 03/03/19 17:51 Last Admin: 03/03/19 18:15 Dose: 2 mg Morphine Sulfate (Morphine) 2 mg IVPUSH ONETIME ONE Stop: 03/03/19 19:25 Last Admin: 03/03/19 19:44 Dose: 2 mg Ondansetron HCl (Zofran) 8 mg IVPUSH ONETIME ONE Stop: 03/03/19 17:51 Last Admin: 03/03/19 18:13 Dose: 8 mg - Exam General: Alert, Oriented HEENT: Pupils Equal, Pupils Reactive, EOMI, Mucous Membr. Moist/[place] Neck: Supple Lungs: Clear to Auscultation, Normal Respiratory Effort Cardiovascular: Regular Rate, Regular Rhythm GI/Abdominal Exam: Normal Bowel Sounds, Soft, Non-Tender, No Organomegaly, No Distention, No Abnormal Bruit, No Mass, Pelvis Stable (Female) Exam: Normal External Exam, Normal Speculum Exam, Normal Bimanual Exam Back Exam: Normal Inspection, Full Range of Motion Extremities: Normal Inspection, Normal Range of Motion, Non-Tender, No Pedal Edema, Normal Capillary Refill Skin: Warm, Dry, Intact Wound/Incisions: Healing Well Neurological: No New Focal Deficit Psy/Mental Status: Alert, Normal Affect, Normal Mood - Problem List Review Problem List Initiated/Reviewed/Updated: Yes - Assessment Assessment:: Pain is controlled but WBC has increased slightly. This is Dr. Villalta dictating and the patient is 11 weeks there is a possibility of appendicitis versus urinary tract infection it is okay for the patient to have a CAT scan or an MRI to rule out appendicitis soon as this would be ruled out then we will start the patient back on her antibiotic for her urinary tract infection - Plan Plan:: Will do imaging studies today. I had ordered a CT scan at Dr. Tamayo's recommendation. Because of her , CRL recommended an MRI. Accordingly , the order was changed. Dr. Tamayo does feel a CT scan is safe and will be speaking to the nursing staff and radiology. Either a CT or MRI will be done this morning to r/o appendicitis.
[2019-03-04 11:49] VITALS: BP 106/55; PULSE 66
--- NOTE | 2019-03-04 12:15 | MR ---
INDICATION: Right lower quadrant pain. Rule out appendicitis. TECHNIQUE: Multiplanar imaging of the abdomen and pelvis was performed without contrast material. COMPARISON: Today`s OB ultrasound and right lower quadrant ultrasound. FINDINGS: The appendix is normal. No inflammatory process is evident. A first trimester is demonstrated. No gross abnormality is evident. The placenta is posterior. The ovaries are grossly normal. No free fluid is demonstrated. Acute mild right hydronephrosis is demonstrated with extravasation of urine from the right collecting system. A small stone at the right ureteropelvic junction is possible. Below the level of the UPJ, the right ureter is normal in caliber. The visualized bowel is unremarkable. No lymphadenopathy or other abnormality is demonstrated. IMPRESSION: 1. Acute mild right hydronephrosis with extravasation of urine from the right collecting system. Question small obstructing stone at the right UPJ. 2. Negative for appendicitis. 3. Grossly negative 1st trimester . Dictated by Manuel Ortiz MD @ Mar 04 2019 12:06PM Signed by Dr. Manuel Ortiz @ Mar 04 2019 12:14PM
[2019-03-04] MEDS ORDERED: ceFAZolin 2 GM in Premix Bag 1 BAG IV SCH (14:00)
== END 2019-03-04 15:10 | disposition home or self-care (01) ==
LOC: MW.ED 17:29 → MW.MS 20:32
PROVIDERS: ADMIT Surgery; ATTEND Surgery
DX: O99.89 Other specified diseases and conditions complicating pregnancy, childbirth and the puerperium (principal); O99.355 Diseases of the nervous system complicating the puerperium; R10.31 Right lower quadrant pain; G43.909 Migraine, unspecified, not intractable, without status migrainosus; E66.9 Obesity, unspecified; Z68.41 Body mass index [BMI] 40.0-44.9, adult
CPT/HCPCS: 36415; 74181; 76705; 76815; 80053; 81001; 83690; 84702; 85025; 87040; 87086; 96361; 96365; 96375; 96376; 99285; G0378; J0690; J2270; J2405; J7040; J7120; 96374

== ENCOUNTER 2019-03-22 18:51 | Emergency (ER) | payer BC ==
[2019-03-22] MEDS ORDERED: Sodium Chloride 0.9% 10 ML Syringe FLUSH PRN (19:21)
[2019-03-22] MEDS ORDERED: Sodium Chloride 0.9% 2.5 ML Syringe FLUSH PRN (19:21)
[2019-03-22] MEDS ORDERED: Sodium Chloride 0.9% 1,000 ML IV ONE (19:22)
[2019-03-22] MEDS ORDERED: Morphine 2 MG/ML Syringe IVPUSH ONE (19:22)
[2019-03-22] MEDS ORDERED: Ondansetron 4 MG/2 ML SDV IVPUSH ONE ×2 (19:22→21:45)
--- NOTE | 2019-03-22 19:27 | EDM.PDOC ---
ED HPI GENERAL MEDICAL PROBLEM - General Chief Complaint: Flank Pain Stated Complaint: ABM PAIN Time Seen by Provider: 03/22/19 19:13 - History of Present Illness INITIAL COMMENTS - FREE TEXT/NARRATIVE: HISTORY AND PHYSICAL: History of present illness: The patient is a 28-year-old 3 para 1011 who is approximately 14 weeks and follows here in our clinic and presents with recurrence of right flank and right lower quadrant pain. The patient was admitted here March 03 until March 04 for similar pain and had an abdominal ultrasound as well as an abdominal MRI to rule out appendicitis. There was no evidence of appendicitis but there was acute mild right hydronephrosis with extravasation of urine from the right collecting system and a question of a small obstructing stone at the right UPJ area when the patient was discharged she was not having any discomfort and she followed up in the clinic. She was seen last week and was not having a lot of pain and was referred to our urologist Dr. Baires but she could not get an appointment until April. She was not prescribed any pain medications or Flomax. She says that she was doing relatively well managing the discomfort with [id number] medications but the pain has been persistent since her admission in a low form with on and off exacerbations. At 4 PM this evening it suddenly got much worse than it has been since she was last admitted. She has had nausea but no vomiting and she's not had a fever. She has not had any urinary complaints but thought that her urine looked a little pinkish right before she came into the ED. She says she's had no vaginal bleeding or discharge and she has not yet felt the baby move. She is not having any midline back pain and she's had no trauma she's had no upper respiratory infections shortness of breath chest pain and has been eating and drinking normally. The patient has had normal stools without black or bloody stools and it is not watery or diarrhea. Review of systems: As per history of present illness and below otherwise all systems reviewed and negative. Past medical history: As per history of present illness and as reviewed below otherwise noncontributory. Surgical history: As per history of present illness and as reviewed below otherwise noncontributory. Social history: No reported history of drug or alcohol abuse. Family history: As per history of present illness and as reviewed below otherwise noncontributory. Physical exam: General: Well-developed well-nourished female who is mildly overweight and nontoxic. She moves easily in the ED but looks uncomfortable. Vital signs are noted by me HEENT: Atraumatic, normocephalic, negative for conjunctival pallor or scleral icterus, mucous membranes moist, throat clear, neck supple, nontender, trachea midline. Lungs: Clear to auscultation, breath sounds equal bilaterally, chest nontender. Heart: S1S2, regular rate and rhythm no overt murmurs Abdomen: Soft, nondistended, nontender. There is some mild tenderness to deep palpation in the right abdomen throughout without any rebound or guarding and bowel sounds are slightly hypoactive Negative for masses or hepatosplenomegaly. Negative for costovertebral tenderness. Pelvis: Stable nontender. Genitourinary: Deferred. Rectal: Deferred. Extremities: Atraumatic, negative for cords or calf pain. Neurovascular unremarkable. Full range of motion Neuro: Awake, alert, oriented. Cranial nerves II through XII unremarkable. Cerebellum unremarkable. Motor and sensory unremarkable throughout. Exam nonfocal. Diagnostics: CBC CMP UA with reflex retroperitoneal ultrasound OB ultrasound urine culture Therapeutics: IV fluids morphine Zofran I discussed all testing results with the patient and at bedside. She is feeling better. I discussed this case with Dr. Baires at 2157 and he does not feel that there is a stone but that she has some congenital narrowing of the UPJ which is being exacerbated by the . He agrees with the flex for the bacteria in the urine and pain management per Dr. Tamayo. He will see the patient in the next 1-2 days for follow-up and patient is aware of these phone calls. I also discussed this case with Dr. Tamayo at 2205 who agrees with [place] for home and he will also follow-up patient. Impression: Right flank. pain with mild right hydronephrosis stable; second trimester stable Definitive disposition and diagnosis as appropriate pending reevaluation and review of above. right flank Pain Score (Numeric/FACES): 8 - Related Data Allergies Allergy/AdvReac Type Severity Reaction Status Date / Time No Known Allergies Allergy Verified 03/22/19 19:00 Home Meds: Home Meds Aspirin 81 mg PO DAILY 03/03/19 [History] Pnv No.95/Ferrous Fum/Folic AC [ Caplet] 1 each PO DAILY 03/22/19 [ History] Past Medical History - Past Health History Medical/Surgical History: Denies Medical/Surgical History HEENT History: Reports: Other (See Below) Other HEENT History: wears glasses/contacts Cardiovascular History: Reports: None Respiratory History: Reports: None Gastrointestinal History: Reports: None Genitourinary History: Reports: Renal Calculus 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 , Musculoskeletal History: Reports: Fracture, Other (See Below) Other Musculoskeletal History: fx jaw Neurological History: Reports: Migraines Psychiatric History: Reports: Anxiety, Other (See Below) Endocrine/Metabolic History: Reports: Obesity/BMI 30+ Hematologic History: Reports: None Immunologic History: Reports: None Oncologic (Cancer) History: Reports: None Dermatologic History: Reports: Psoriasis - Infectious Disease History Infectious Disease History: Reports: Chicken Pox, Other (See Below) - Past Surgical History Head Surgeries/Procedures: Reports: None HEENT Surgical History: Reports: Adenoidectomy, Oral Surgery, Tonsillectomy Other HEENT Surgeries/Procedures: jaw surgery to correct underbite (has plates and screws), wisdom teeth removed GI Surgical History: Reports: Cholecystectomy, Colonoscopy Female Surgical History: Reports: D&C, Other (See Below) Other Female Surgeries/Procedures: Laparoscopy for excision of Ectopic Musculoskeletal Surgical History: Reports: Carpal Tunnel Other Musculoskeletal Surgeries/Procedures:: bilateral CTR Social & Family History - Family History Family Medical History: Noncontributory - Tobacco Use Smoking Status *Q: Never Smoker - Caffeine Use Caffeine Use: Reports: None - Recreational Drug Use Recreational Drug Use: No ED ROS GENERAL - Review of Systems Review Of Systems: ROS reveals no pertinent complaints other than HPI. ED EXAM, GENERAL - Physical Exam Exam: See Below (See dictation) Course - Vital Signs Last Recorded V/S: Last Vital Signs Temp 36.9 C 03/22/19 18:58 Pulse 85 03/22/19 21:57 Resp 16 03/22/19 21:57 BP 113/56 L 03/22/19 21:57 Pulse Ox 96 03/22/19 21:57 - Orders/Labs/Meds Orders: Active Orders 24 hr Category Date Time Status CULTURE URINE [RM] Stat Lab 03/22/19 19:30 Received Sodium Chloride 0.9% [Saline Flush] Med 03/22/19 19:21 Active 10 ml FLUSH ASDIRECTED PRN Sodium Chloride 0.9% [Saline Flush] Med 03/22/19 19:21 Active 2.5 ml FLUSH ASDIRECTED PRN Saline Lock Insert [OM.PC] Stat Oth 03/22/19 19:20 Ordered Medication Orders Sodium Chloride (Saline Flush) 10 ml FLUSH ASDIRECTED PRN PRN Reason: Keep Vein Open Last Admin: 03/22/19 21:56 Dose: 10 ml Sodium Chloride (Saline Flush) 2.5 ml FLUSH ASDIRECTED PRN PRN Reason: Keep Vein Open Last Admin: 03/22/19 21:56 Dose: 2.5 ml Labs: Laboratory Tests 03/22/19 03/22/19 03/22/19 Range/Units 19:30 19:30 19:30 WBC 12.90 H (4.0-11.0) K/uL RBC 4.11 L (4.30-5.90) M/uL Hgb 12.7 (12.0-16.0) g/dL Hct 35.6 L (36.0-46.0) % MCV 86.6 (80.0-98.0) fL MCH 30.9 (27.0-32.0) pg MCHC 35.7 (31.0-37.0) g/dL RDW Std Deviation 40.8 (28.0-62.0) fl RDW Coeff of Zeb 13 (11.0-15.0) % Plt Count 193 (150-400) K/uL MPV 10.10 (7.40-12.00) fL Neut % (Auto) 74.4 (48.0-80.0) % Lymph % (Auto) 18.7 (16.0-40.0) % [place] % (Auto) 5.9 (0.0-15.0) % Eos % (Auto) 0.9 (0.0-7.0) % Baso % (Auto) 0.1 (0.0-1.5) % Neut # (Auto) 9.6 H (1.4-5.7) K/uL Lymph # (Auto) 2.4 (0.6-2.4) K/uL [place] # (Auto) 0.8 (0.0-0.8) K/uL Eos # (Auto) 0.1 (0.0-0.7) K/uL Baso # (Auto) 0.0 (0.0-0.1) K/uL Nucleated RBC % 0.0 /100WBC Nucleated RBCs # 0 K/uL Sodium 139 (136-145) mmol/L Potassium 4.1 (3.5-5.1) mmol/L Chloride 103 (98-107) mmol/L Carbon Dioxide 24.6 (21.0-32.0) mmol/L BUN 6 L (7.0-18.0) mg/dL Creatinine 0.8 (0.6-1.0) mg/dL Est Cr Clr Drug Dosing 85.06 mL/min Estimated GFR (MDRD) > 60.0 ml/min Glucose 94 (74-106) mg/dL Calcium 9.3 (8.5-10.1) mg/dL Total Bilirubin 0.4 (0.2-1.0) mg/dL AST 23 (15-37) IU/L ALT 21 (14-63) IU/L Alkaline Phosphatase 52 (46-116) U/L Total Protein 7.8 (6.4-8.2) g/dL Albumin 3.7 (3.4-5.0) g/dL Globulin 4.1 H (2.6-4.0) g/dL Albumin/Globulin Ratio 0.9 (0.9-1.6) Urine Color YELLOW Urine Appearance CLOUDY Urine pH 5.5 (5.0-8.0) Ur Specific [place] >= 1.030 (1.001-1.035) Urine Protein 100 H (NEGATIVE) mg/dL Urine Glucose (UA) NEGATIVE (NEGATIVE) mg/dL Urine Ketones TRACE H (NEGATIVE) mg/dL Urine Occult Blood LARGE H (NEGATIVE) Urine Nitrite NEGATIVE (NEGATIVE) Urine Bilirubin NEGATIVE (NEGATIVE) Urine Urobilinogen 0.2 (<2.0) EU/dL Ur Leukocyte Esterase NEGATIVE (NEGATIVE) Urine RBC 32-40 (0-2/HPF) Urine WBC 1-3 (0-5/HPF) Ur Epithelial Cells MODERATE (NONE-FEW) Amorphous Sediment HEAVY (NEGATIVE) Urine Bacteria 2+ H (NEGATIVE) Urinalysis Comment Meds: Medications Generic Name Dose Route Start Last Admin Trade Name Freq PRN Reason Stop Dose Admin Sodium Chloride 10 ml 03/22/19 19:21 03/22/19 21:56 Saline Flush FLUSH 10 ml ASDIRECTED PRN Administration Keep Vein Open Sodium Chloride 2.5 ml 03/22/19 19:21 03/22/19 21:56 Saline Flush FLUSH 2.5 ml ASDIRECTED PRN Administration Keep Vein Open Discontinued Medications Generic Name Dose Route Start Last Admin Trade Name Freq PRN Reason Stop Dose Admin Sodium Chloride 1,000 mls @ 999 mls/hr 03/22/19 19:22 03/22/19 19:35 Normal Saline IV 03/22/19 20:22 999 mls/hr STAT ONE Administration Morphine Sulfate 4 mg 03/22/19 19:22 03/22/19 19:43 Morphine IVPUSH 03/22/19 19:23 4 mg ONETIME ONE Administration Ondansetron HCl 4 mg 03/22/19 19:22 03/22/19 19:42 Zofran IVPUSH 03/22/19 19:23 4 mg ONETIME ONE Administration Ondansetron HCl 4 mg 03/22/19 21:45 03/22/19 21:56 Zofran IVPUSH 03/22/19 21:46 4 mg ONETIME ONE Administration Departure - Departure Time of Disposition: 22:20 Disposition: Home, Self-Care 01 Condition: Good Clinical Impression: Acute right flank pain, Second trimester - Discharge Information Referrals: Anita Ruiz, CONCRETE PAVING MACHINE OPERATOR [Primary Care Provider] - Forms: ED Department Discharge Additional Instructions: The following information is given to patients seen in the emergency department who are being discharged to home. This information is to outline your options for follow-up care. We provide all patients seen in our emergency department with a follow-up referral. The need for follow-up, as well as the timing and circumstances, are variable depending upon the specifics of your emergency department visit. If you don't have a primary care physician on staff, we will provide you with a referral. We always advise you to contact your personal physician following an emergency department visit to inform them of the circumstance of the visit and for follow-up with them and/or the need for any referrals to a consulting specialist. The emergency department will also refer you to a specialist when appropriate. This referral assures that you have the opportunity for followup care with a specialist. All of these measure are taken in an effort to provide you with optimal care, which includes your followup. Under all circumstances we always encourage you to contact your private physician who remains a resource for coordinating your care. When calling for followup care, please make the office aware that this follow-up is from your recent emergency room visit. If for any reason you are refused follow-up, please contact the [facility] emergency department at and ask to speak to the emergency department charge nurse. [facility] [address] [place] [address] [place], [place] [id number] [facility] [address] [place] [address] These push hydration and use medications as prescribed. Continue over-the- counter meds and only use the [place] you have been given as needed for severe pain. Please call Dr. Baires's office in the morning and schedule a follow-up appointment making sure that they know he was contacted this evening and he wants to see you in the next few days. Return to ER as needed and as discussed - My Orders Last 24 Hours: My Active Orders 03/22/19 19:20 Saline Lock Insert [OM.PC] Stat 03/22/19 19:21 Sodium Chloride 0.9% [Saline Flush] 10 ml FLUSH ASDIRECTED PRN Sodium Chloride 0.9% [Saline Flush] 2.5 ml FLUSH ASDIRECTED PRN 03/22/19 19:30 CULTURE URINE [RM] Stat - Assessment/Plan Last 24 Hours: My Active Orders 03/22/19 19:20 Saline Lock Insert [OM.PC] Stat 03/22/19 19:21 Sodium Chloride 0.9% [Saline Flush] 10 ml FLUSH ASDIRECTED PRN Sodium Chloride 0.9% [Saline Flush] 2.5 ml FLUSH ASDIRECTED PRN 03/22/19 19:30 CULTURE URINE [RM] Stat
[2019-03-22 20:04] LABS: BLOOD UREA NITROGEN,BUN 6 mg/dL (7.0-18.0); CARBON DIOXIDE,CO2 24.6 mmol/L (21.0-32.0); CHLORIDE,CL 103 mmol/L (98-107); GLUCOSE RANDOM 94 mg/dL (74-106); POTASSIUM,K 4.1 mmol/L (3.5-5.1); SODIUM,NA 139 mmol/L (136-145)
--- NOTE | 2019-03-22 20:42 | US ---
INDICATION: Right flank pain, assess fetus. TECHNIQUE: Ultrasound OB pelvis transabdominal. Real-time kaur-scale imaging of the pelvis was performed. COMPARISON: None FINDINGS: There is a single live intrauterine gestation with a clinical age of 13 weeks 6 days based on last menstrual period (JAVIER 09/21/2019). Placenta is posterior without perigestational bleed. Amniotic fluid appears subjectively normal. heart rate is 146 beats per minute. IMPRESSION: 1. Single live intrauterine gestation with a clinical age of 13 weeks 6 days. 2. Subjectively normal amniotic fluid. No perigestational bleed. Dictated by Jerson Lozano MD @ Mar 22 2019 8:37PM Signed by Dr. Jerson Lozano @ Mar 22 2019 8:39PM
--- NOTE | 2019-03-22 21:15 | US ---
Indication: Right flank pain. Fourteen weeks gestation. Technique: Grayscale and color Doppler ultrasound of the kidneys and bladder was performed. Comparison: MRI of the abdomen dated March 04, 2019. Findings: The left kidney measures 11.7 x 5.5 x 4.8 cm insight no hydronephrosis is identified. No perinephric free fluid is identified. Normal color flow was identified to the left kidney. The right kidney measures 12.1 x 6.3 x 6.9 centimeters in size. [id number] right-sided hydronephrosis is identified. Dilatation of the right ureteral pelvic junction is identified, measuring 1.3 cm in size. No shadowing renal calculi are identified. No definite ureteral calculi are identified. In the bladder, the bladder is small. A left ureteral jet is identified. No right ureteral jet is identified. Impression: Findings most consistent with a right ureteral calculus, including a right-sided hydronephrosis, dilatation of the right ureteropelvic junction, and no right ureteral jet in the bladder. Dictated by Marcy De La O MD @ Mar 22 2019 9:07PM Signed by Dr. Marcy De La O @ Mar 22 2019 9:13PM
[2019-03-22 22:44] VITALS: BP 146/86; PULSE 83
== END 2019-03-22 22:40 | disposition home or self-care (01) ==
LOC: MW.ED 18:51
DX: O99.89 Other specified diseases and conditions complicating pregnancy, childbirth and the puerperium (principal); N13.30 Unspecified hydronephrosis; O99.212 Obesity complicating pregnancy, second trimester; Z79.82 Long term (current) use of aspirin; Z90.49 Acquired absence of other specified parts of digestive tract; Z98.890 Other specified postprocedural states; Z3A.14 14 weeks gestation of pregnancy
CPT/HCPCS: 36415; 76775; 76815; 80053; 81001; 85025; 87086; 96361; 96374; 96375; 96376; 99284; J2270; J2405; J7040

== ENCOUNTER 2019-09-07 00:06 | Inpatient (IN) | payer BC ==
[2019-09-07] MEDS ORDERED: Sodium Chloride 0.9% 10 ML Syringe FLUSH PRN (00:28)
[2019-09-07] MEDS ORDERED: Methylergonovine 0.2 MG/1 ML Amp IM PRN (00:28)
[2019-09-07] MEDS ORDERED: Misoprostol 25 MCG (1/4 of 100 MCG) Tab VAG PRN (00:28)
[2019-09-07] MEDS ORDERED: Misoprostol 200 MCG Tab PO PRN (00:28)
[2019-09-07] MEDS ORDERED: Carboprost Tromethamine 250 MCG/1 ML Amp IM PRN (00:28)
[2019-09-07] MEDS ORDERED: Lidocaine 1% 50 ML MDV INJECT PRN (00:28)
[2019-09-07] MEDS ORDERED: Terbutaline 1 MG/ML SDV SUBCUT PRN (00:28)
[2019-09-07] MEDS ORDERED: Sodium Chloride 0.9% 2.5 ML Syringe FLUSH PRN (00:28)
[2019-09-07] MEDS ORDERED: Butorphanol 1 MG/ML SDV IVPUSH PRN (00:28)
[2019-09-07] MEDS ORDERED: Tranexamic Acid 1,000 MG in Sodium Chloride 0.9% 100 ML IV PRN (00:28)
[2019-09-07] MEDS ORDERED: Ondansetron 4 MG/2 ML SDV IVPUSH PRN (00:28)
[2019-09-07] MEDS ORDERED: Water For Irrigation,Sterile 1,000 ML Container IRR PRN (00:28)
[2019-09-07] MEDS ORDERED: Sodium Chloride 0.9% 10 ML SDV IV PRN (00:28)
[2019-09-07] MEDS ORDERED: Oxytocin/0.9 % Sodium Chloride 30 UNIT/500 ML BAG IV SCH ×2 (00:30)
[2019-09-07] MEDS ORDERED: Misoprostol 25 MCG (1/4 of 100 MCG) Tab PO ONE (00:31)
[2019-09-07] MEDS: Lactated Ringers 1,000 ML IV SCH ×2 (01:12→12:38)
--- NOTE | 2019-09-07 04:23 | PCM.LDHP ---
L&D History of Present Illness - General Date of Service: 09/07/19 Admit Problem/Dx: Patient Status Order with Admit Dx/Problem 09/07/19 00:28 Patient Status [ADT] Routine Admission Diagnosis/Problem Admission Diagnosis/Problem Source of Information: Patient History Limitations: Reports: No Limitations - History of Present Illness Improves with: Reports: None Worsens with: Reports: None Associated Symptoms: Reports: N - Related Data Allergies/Adverse Reactions: Allergies Allergy/AdvReac Type Severity Reaction Status Date / Time No Known Allergies Allergy Verified 08/28/19 09:43 Home Medications: Home Meds Aspirin 81 mg PO DAILY 03/03/19 [History] Pnv No.95/Ferrous Fum/Folic AC [ Caplet] 1 each PO DAILY 03/22/19 [ History] Past Medical History - Past Health History Medical/Surgical History: Denies Medical/Surgical History HEENT History: Reports: Other (See Below) Other HEENT History: wears glasses/contacts Cardiovascular History: Reports: None Respiratory History: Reports: None Gastrointestinal History: Reports: None Genitourinary History: Reports: Renal Calculus WIRED [employer] History: Reports: Ectopic , Musculoskeletal History: Reports: Fracture, Other (See Below) Other Musculoskeletal History: fx jaw Neurological History: Reports: Migraines Psychiatric History: Reports: Anxiety, Other (See Below) Endocrine/Metabolic History: Reports: Obesity/BMI 30+ Hematologic History: Reports: None Immunologic History: Reports: None Oncologic (Cancer) History: Reports: None Dermatologic History: Reports: Psoriasis - Infectious Disease History Infectious Disease History: Reports: Chicken Pox - Past Surgical History Head Surgeries/Procedures: Reports: None HEENT Surgical History: Reports: Adenoidectomy, Oral Surgery, Tonsillectomy Other HEENT Surgeries/Procedures: jaw surgery to correct underbite (has plates and screws), wisdom teeth removed GI Surgical History: Reports: Cholecystectomy, Colonoscopy Female Surgical History: Reports: D&C, Other (See Below) Other Female Surgeries/Procedures: Laparoscopy for excision of Ectopic Musculoskeletal Surgical History: Reports: Carpal Tunnel Other Musculoskeletal Surgeries/Procedures:: bilateral CTR Social & Family History - Family History Family Medical History: Noncontributory - Caffeine Use Caffeine Use: Reports: None H&P Review of Systems - Review of Systems: Review Of Systems: See Below General: Reports: No Symptoms HEENT: Reports: No Symptoms Pulmonary: Reports: No Symptoms Cardiovascular: Reports: No Symptoms Gastrointestinal: Reports: No Symptoms Genitourinary: Reports: No Symptoms Musculoskeletal: Reports: No Symptoms Skin: Reports: No Symptoms Psychiatric: Reports: No Symptoms Neurological: Reports: No Symptoms Hematologic/Lymphatic: Reports: No Symptoms Immunologic: Reports: No Symptoms L&D Exam - Exam Exam: See Below - Vital Signs Weight: 107.955 kg - OB Specific Contraction Intensity: Mild Movement: Active Heart Tones: Present Presentation: Vertex - Díaz Score Díaz Score Cervix Position: Midposition Díaz Score Consistency: Medium Díaz Score Effacement: 51-70% Díaz Score Dilation: 1-2 cm Díaz Score Infant's Station: -3 Díaz Score Total: 5 - Exam General: Alert, Oriented HEENT: PERRLA, Conjunctiva Clear, EACs Clear, EOMI, Hearing Intact, Mucosa Moist & [place], Nares Patent, Normal Nasal Septum, Posterior Pharynx Clear, TMs Clear Neck: Supple, Trachea Midline Lungs: Clear to Auscultation, Normal Respiratory Effort Cardiovascular: Regular Rate, Regular Rhythm GI/Abdominal Exam: Normal Bowel Sounds, Soft, Non-Tender, No Organomegaly, No Distention, No Abnormal Bruit, No Mass, Pelvis Stable Rectal Exam: Normal Exam, Normal Rectal Tone Genitourinary: Normal external exam, Normal bimanual exam, Normal speculum exam Back Exam: Normal Inspection, Full Range of Motion Extremities: Normal Inspection, Normal Range of Motion, Non-Tender, No Pedal Edema, Normal Capillary Refill Skin: Warm, Dry, Intact Neurological: Cranial Nerves Intact, Reflexes Equal Bilateral Psychiatric: Alert, Normal Affect, Normal Mood - Patient Data Lab Results Last 24 hrs: Laboratory Results - last 24 hr 09/07/19 09/07/19 Range/Units 01:00 01:00 WBC 10.22 (4.0-11.0) K/uL RBC 3.71 L (4.30-5.90) M/uL Hgb 11.0 L (12.0-16.0) g/dL Hct 32.7 L (36.0-46.0) % MCV 88.1 (80.0-98.0) fL MCH 29.6 (27.0-32.0) pg MCHC 33.6 (31.0-37.0) g/dL RDW Std Deviation 45.4 (28.0-62.0) fl RDW Coeff of Zeb 15 (11.0-15.0) % Plt Count 176 (150-400) K/uL MPV 9.80 (7.40-12.00) fL Blood Type B POSITIVE Antibody Screen NEGATIVE Result Diagrams: 09/07/19 01:00 Problem List Initiated/Reviewed/Updated: Yes Orders Last 24hrs: Active Orders 24 hr Category Date Time Status Patient Status [ADT] Routine ADT 09/07/19 00:28 Active Bedrest Bathroom Privileges [RC] ASDIRECTED Care 09/07/19 00:28 Active Communication Order [RC] ASDIRECTED Care 09/07/19 00:28 Active Communication Order [RC] ASDIRECTED Care 09/07/19 00:28 Active Communication Order [RC] ASDIRECTED Care 09/07/19 00:28 Active Heart Tones [RC] CONTINUOUS Care 09/07/19 00:28 Active Non Stress Test [RC] PER UNIT ROUTINE Care 09/07/19 00:28 Active May Shower [RC] ASDIRECTED Care 09/07/19 00:28 Active Notify Provider [RC] PRN Care 09/07/19 00:28 Active Notify Provider [RC] PRN Care 09/07/19 00:28 Active Notify Provider [RC] PRN Care 09/07/19 00:28 Active Notify Provider [RC] STAT Care 09/07/19 00:28 Active Oxygen Therapy [RC] ASDIRECTED Care 09/07/19 00:28 Active Up ad Fiona [RC] ASDIRECTED Care 09/07/19 00:28 Active Vaginal Exam [RC] PRN Care 09/07/19 00:28 Active Vaginal Exam [RC] PRN Care 09/07/19 00:28 Active Vital Signs [RC] PER UNIT ROUTINE Care 09/07/19 00:28 Active Vital Signs [RC] PER UNIT ROUTINE Care 09/07/19 00:28 Active RPR (SYPHILIS SERO) W/ RFLX [REF] Routine Lab 09/07/19 01:00 Received Butorphanol [Stadol] Med 09/07/19 00:28 Active 1 mg IVPUSH Q1H PRN Carboprost Tromethamine [Hemabate DS] Med 09/07/19 00:28 Active 250 mcg IM ASDIRECTED PRN Lactated Ringers [Ringers, Lactated] 1,000 ml Med 09/07/19 00:30 Active IV ASDIRECTED Lidocaine 1% [Xylocaine 1%] Med 09/07/19 00:28 Active 50 ml INJECT ONETIME PRN Methylergonovine [Methergine] Med 09/07/19 00:28 Active 0.2 mg IM ASDIRECTED PRN Nalbuphine [Nubain] Med 09/07/19 00:28 Active 10 mg IVPUSH Q1H PRN Ondansetron [Zofran] Med 09/07/19 00:28 Active 4 mg IVPUSH Q4H PRN Oxytocin/0.9 % Sodium Chloride [Oxytocin 30 Unit/500 ML Med 09/07/19 00:30 Active -NS] 30 unit in 500 ml IV TITRATE Oxytocin/0.9 % Sodium Chloride [Oxytocin 30 Unit/500 ML Med 09/07/19 00:30 Active -NS] 30 unit in 500 ml IV TITRATE Sodium Chloride 0.9% [Normal Saline] Med 09/07/19 00:28 Active 10 ml IV ASDIRECTED PRN Sodium Chloride 0.9% [Saline Flush] Med 09/07/19 00:28 Active 10 ml FLUSH ASDIRECTED PRN Sodium Chloride 0.9% [Saline Flush] Med 09/07/19 00:28 Active 2.5 ml FLUSH ASDIRECTED PRN Terbutaline [Brethine] Med 09/07/19 00:28 Active 0.25 mg SUBCUT ASDIRECTED PRN Tranexamic Acid [Cyklokapron] 1,000 mg Med 09/07/19 00:28 Active Sodium Chloride 0.9% [Normal Saline] 100 ml IV ONETIME Water For Irrigation,Sterile [Sterile Water for Med 09/07/19 00:28 Active Irrigation] 1,000 ml IRR ASDIRECTED PRN miSOPROStoL [Cytotec] Med 09/07/19 00:28 Active 200 mcg PO ONETIME PRN miSOPROStoL [Cytotec] Med 09/07/19 05:12 Active 25 mcg PO Q4H miSOPROStoL [Cytotec] Med 09/07/19 00:28 Active 25 mcg VAG ONETIME PRN miSOPROStoL [Cytotec] Med 09/07/19 00:28 Active 25 mcg VAG Q4H PRN Scalp Electrode [WOMSER] Per Unit Routine Oth 09/07/19 00:28 Ordered Medication Administration Instruction [OM.PC] Q3H Oth 09/07/19 00:30 Ordered Peripheral IV Insertion Adult [OM.PC] Routine Oth 09/07/19 00:28 Ordered Resuscitation Status Routine Resus Stat 09/07/19 00:28 Ordered Medication Orders Butorphanol Tartrate (Stadol) 1 mg IVPUSH Q1H PRN PRN Reason: Pain Carboprost Tromethamine (Hemabate Ds) 250 mcg IM ASDIRECTED PRN PRN Reason: Post Hemorrhage Lactated Ringer's (Ringers, Lactated) 1,000 mls @ 150 mls/hr IV ASDIRECTED MAUREEN Last Admin: 09/07/19 01:12 Dose: 150 mls/hr Oxytocin/Sodium Chloride (Oxytocin 30 Unit/500 Ml-Ns) 30 unit in 500 mls @ 999 mls/hr IV TITRATE MAUREEN Oxytocin/Sodium Chloride (Oxytocin 30 Unit/500 Ml-Ns) 30 unit in 500 mls @ 2 mls/hr IV TITRATE MAUREEN; Protocol Tranexamic Acid 1,000 mg/ (Sodium Chloride) 110 mls @ 660 mls/hr IV ONETIME PRN PRN Reason: Bleeding Lidocaine HCl (Xylocaine 1%) 50 ml INJECT ONETIME PRN PRN Reason: Laceration repair Methylergonovine Maleate (Methergine) 0.2 mg IM ASDIRECTED PRN PRN Reason: Post Hemorrhage Misoprostol (Cytotec) 200 mcg PO ONETIME PRN PRN Reason: Post Hemorrhage Misoprostol (Cytotec) 25 mcg VAG ONETIME PRN PRN Reason: Cervical Ripening Last Admin: 09/07/19 01:12 Dose: 25 mcg Misoprostol (Cytotec) 25 mcg VAG Q4H PRN PRN Reason: Cervical Ripening Misoprostol (Cytotec) 25 mcg PO Q4H MAUREEN Nalbuphine HCl (Nubain) 10 mg IVPUSH Q1H PRN PRN Reason: Pain (severe 7-10) Ondansetron HCl (Zofran) 4 mg IVPUSH Q4H PRN PRN Reason: Nausea/Vomiting Sodium Chloride (Saline Flush) 10 ml FLUSH ASDIRECTED PRN PRN Reason: Keep Vein Open Sodium Chloride (Saline Flush) 2.5 ml FLUSH ASDIRECTED PRN PRN Reason: Keep Vein Open Sodium Chloride (Normal Saline) 10 ml IV ASDIRECTED PRN PRN Reason: IV Use Sterile Water (Sterile Water For Irrigation) 1,000 ml IRR ASDIRECTED PRN PRN Reason: delivery Terbutaline Sulfate (Brethine) 0.25 mg SUBCUT ASDIRECTED PRN PRN Reason: Tacysystole Assessment/Plan Comment:: IUP 37+3 with PIH and GDM admitted for elective induction.
[2019-09-07] MEDS: Misoprostol 25 MCG (1/4 of 100 MCG) Tab PO SCH ×4 (05:07→18:50)
[2019-09-07] MEDS: Misoprostol 25 MCG (1/4 of 100 MCG) Tab VAG PRN ×2 (05:08→09:15)
[2019-09-07] MEDS: Nalbuphine 10 MG/1 ML Vial IVPUSH PRN ×2 (09:38→11:57)
[2019-09-07] MEDS ORDERED: Bupivicaine/fentaNYL/NS 250 ML ONE (12:40)
--- NOTE | 2019-09-07 13:08 | PCM.PREANE ---
Preanesthetic Assessment - Anesthesia/Transfusion/Family Hx Anesthesia History: Prior Anesthesia Without Reaction Other Type of Anesthesia Reaction Comment: STATES MOTHER IS A HARD INTUBATION DUE TO SMALL MOUTH Family History of Anesthesia Reaction: No Transfusion History: No Prior Transfusion(s) Intubation History: Unknown - Review of Systems General: No Symptoms Pulmonary: No Symptoms Cardiovascular: Other (PIH) Gastrointestinal: No Symptoms Neurological: No Symptoms Other: Reports: Diabetes (GDM) - Physical Assessment NPO Status Date: 09/07/19 NPO Status Time: 12:20 (cheese stick) Height: 5 ft 3 in Weight: 107.955 kg ASA Class: 2E Mental Status: Alert & Oriented x3 Airway Class: Mallampati = 3 Dentition: Reports: Normal Dentition Thyro-Mental Finger Breadths: 2 ROM/Head Extension: Full Lungs: Clear to Auscultation, Normal Respiratory Effort Cardiovascular: Regular Rate, Regular Rhythm - Lab Values: Laboratory Last Values WBC 10.22 K/uL (4.0-11.0) 09/07/19 01:00 RBC 3.71 M/uL (4.30-5.90) L 09/07/19 01:00 Hgb 11.0 g/dL (12.0-16.0) L 09/07/19 01:00 Hct 32.7 % (36.0-46.0) L 09/07/19 01:00 MCV 88.1 fL (80.0-98.0) 09/07/19 01:00 MCH 29.6 pg (27.0-32.0) 09/07/19 01:00 MCHC 33.6 g/dL (31.0-37.0) 09/07/19 01:00 RDW Std Deviation 45.4 fl (28.0-62.0) 09/07/19 01:00 RDW Coeff of Zeb 15 % (11.0-15.0) 09/07/19 01:00 Plt Count 176 K/uL (150-400) 09/07/19 01:00 MPV 9.80 fL (7.40-12.00) 09/07/19 01:00 Blood Type B POSITIVE 09/07/19 01:00 Antibody Screen NEGATIVE 09/07/19 01:00 - Allergies Allergies/Adverse Reactions: Allergies Allergy/AdvReac Type Severity Reaction Status Date / Time No Known Allergies Allergy Verified 08/28/19 09:43 - Acknowledgements Anesthesia Type Planned: Epidural Pt an Appropriate Candidate for the Planned Anesthesia: Yes Alternatives and Risks of Anesthesia Discussed w Pt/Guardian: Yes Pt/Guardian Understands and Agrees with Anesthesia Plan: Yes Additional Comments: at 37 weeks. Induction for PIH and GDM. 4-5 cm dilated. PreAnesthesia Questionnaire - Past Health History Medical/Surgical History: Denies Medical/Surgical History HEENT History: Reports: Other (See Below) Other HEENT History: wears glasses/contacts Cardiovascular History: Reports: None Respiratory History: Reports: None Gastrointestinal History: Reports: None Genitourinary History: Reports: Renal Calculus ORTHOTIST History: Reports: Ectopic , Musculoskeletal History: Reports: Fracture, Other (See Below) Other Musculoskeletal History: fx jaw Neurological History: Reports: Migraines Psychiatric History: Reports: Anxiety, Other (See Below) Endocrine/Metabolic History: Reports: Obesity/BMI 30+ Hematologic History: Reports: None Immunologic History: Reports: None Oncologic (Cancer) History: Reports: None Dermatologic History: Reports: Psoriasis - Infectious Disease History Infectious Disease History: Reports: Chicken Pox - Past Surgical History Head Surgeries/Procedures: Reports: None HEENT Surgical History: Reports: Adenoidectomy, Oral Surgery, Tonsillectomy Other HEENT Surgeries/Procedures: jaw surgery to correct underbite (has plates and screws), wisdom teeth removed GI Surgical History: Reports: Cholecystectomy, Colonoscopy Female Surgical History: Reports: D&C, Other (See Below) Other Female Surgeries/Procedures: Laparoscopy for excision of Ectopic Musculoskeletal Surgical History: Reports: Carpal Tunnel Other Musculoskeletal Surgeries/Procedures:: bilateral CTR - HOME MEDS Home Medications: Home Meds Aspirin 81 mg PO DAILY 03/03/19 [History] Pnv No.95/Ferrous Fum/Folic AC [ Caplet] 1 each PO DAILY 03/22/19 [ History] - CURRENT (IN HOUSE) MEDS Current Meds: Current Medications Butorphanol Tartrate (Stadol) 1 mg IVPUSH Q1H PRN PRN Reason: Pain Carboprost Tromethamine (Hemabate Ds) 250 mcg IM ASDIRECTED PRN PRN Reason: Post Hemorrhage Lactated Ringer's (Ringers, Lactated) 1,000 mls @ 150 mls/hr IV ASDIRECTED MAUREEN Last Infusion: 09/07/19 12:57 Dose: 150 mls/hr Oxytocin/Sodium Chloride (Oxytocin 30 Unit/500 Ml-Ns) 30 unit in 500 mls @ 999 mls/hr IV TITRATE MAUREEN Oxytocin/Sodium Chloride (Oxytocin 30 Unit/500 Ml-Ns) 30 unit in 500 mls @ 2 mls/hr IV TITRATE MAUREEN; Protocol Tranexamic Acid 1,000 mg/ (Sodium Chloride) 110 mls @ 660 mls/hr IV ONETIME PRN PRN Reason: Bleeding Lidocaine HCl (Xylocaine 1%) 50 ml INJECT ONETIME PRN PRN Reason: Laceration repair Methylergonovine Maleate (Methergine) 0.2 mg IM ASDIRECTED PRN PRN Reason: Post Hemorrhage Misoprostol (Cytotec) 200 mcg PO ONETIME PRN PRN Reason: Post Hemorrhage Misoprostol (Cytotec) 25 mcg VAG ONETIME PRN PRN Reason: Cervical Ripening Last Admin: 09/07/19 01:12 Dose: 25 mcg Misoprostol (Cytotec) 25 mcg VAG Q4H PRN PRN Reason: Cervical Ripening Last Admin: 09/07/19 09:15 Dose: 25 mcg Misoprostol (Cytotec) 25 mcg PO Q4H MAUREEN Last Admin: 09/07/19 09:15 Dose: 25 mcg Nalbuphine HCl (Nubain) 10 mg IVPUSH Q1H PRN PRN Reason: Pain (severe 7-10) Last Admin: 09/07/19 11:57 Dose: 10 mg Ondansetron HCl (Zofran) 4 mg IVPUSH Q4H PRN PRN Reason: Nausea/Vomiting Sodium Chloride (Saline Flush) 10 ml FLUSH ASDIRECTED PRN PRN Reason: Keep Vein Open Sodium Chloride (Saline Flush) 2.5 ml FLUSH ASDIRECTED PRN PRN Reason: Keep Vein Open Sodium Chloride (Normal Saline) 10 ml IV ASDIRECTED PRN PRN Reason: IV Use Sterile Water (Sterile Water For Irrigation) 1,000 ml IRR ASDIRECTED PRN PRN Reason: delivery Terbutaline Sulfate (Brethine) 0.25 mg SUBCUT ASDIRECTED PRN PRN Reason: Tacysystole Discontinued Medications Fentanyl/Bupivacaine HCl (Fentanyl/Bupivacaine/Ns 2 Mcg-0.125% 250 Ml) Confirm Administered Dose 250 mls @ as directed .ROUTE .STK-MED ONE Stop: 09/07/19 12:41 Misoprostol (Cytotec) 25 mcg PO ONETIME ONE Stop: 09/07/19 00:32 Last Admin: 09/07/19 01:12 Dose: 25 mcg
[2019-09-07] MEDS ORDERED: Docusate Sodium 100 MG Cap PO PRN (15:05)
[2019-09-07] MEDS ORDERED: Lanolin 100% Cream 7 GM Tube TOP PRN (15:05)
[2019-09-07] MEDS ORDERED: oxyCODONE 5 MG Tab PO PRN (15:05)
[2019-09-07] MEDS ORDERED: Bisacodyl 10 MG Supp RECTAL PRN (15:05)
[2019-09-07] MEDS ORDERED: Acetaminophen 500 MG Tab PO PRN ×2 (15:05)
[2019-09-07] MEDS ORDERED: Ibuprofen 400 MG Tab PO PRN (15:05)
[2019-09-07] MEDS ORDERED: Witch Hazel Medicated Pads 40/Jar TOP PRN (15:05)
[2019-09-07] MEDS ORDERED: Benzocaine/Menthol 20%-0.5% Spray 78 GM Cannister TOP PRN (15:05)
--- NOTE | 2019-09-07 18:14 | OR ---
SURGEON: Seymour Tamayo MD DATE OF PROCEDURE: 09/07/2019 DELIVERY NOTE: Ms. Chavez is 29 years old. She is para 1-0-0-1. She is status post normal spontaneous vaginal delivery. She is followed in our practice primarily by me. She is 37 plus 3. She had elevated blood pressure and gestational diabetes in this . She is admitted for elective induction at 37 weeks. The patient is induced with Cytotec, which she responded for very well. When she was 2 to 3 cm, artificial rupture of the membrane was done by me with clear fluid. The patient continued to contract adequately on the Cytotec on her own. She became 5 cm, complete, vertex, and she had epidural anesthesia and after that she became complete-complete, vertex, and +2, and she was able to accomplish normal spontaneous vaginal delivery of a female fetus. Cried immediately. score reported to be 8 and 9. The weight is not available. The placenta delivered spontaneous, complete, and intact. There was no need for episiotomy, and there was no perineal or labial or vaginal laceration. Estimated blood loss was 250 to 300 mL. heart rate was category 1 through the entire process of labor. One nuchal cord, not tight, was noted at the time of the delivery. There was no complication in this labor and delivery. ANGELICA / FOUZIA /[id number]
--- NOTE | 2019-09-07 19:34 | PCM.POSTAN ---
POST ANESTHESIA ASSESSMENT - MENTAL STATUS Mental Status: Alert, Oriented - RESPIRATORY Respiratory Status: Respiratory Rate WNL, Airway Patent, O2 Saturation Stable - CARDIOVASCULAR CV Status: Pulse Rate WNL, Blood Pressure Stable - GASTROINTESTINAL GI Status: No Symptoms - POST OP HYDRATION Hydration Status: Adequate & Stable
--- NOTE | 2019-09-07 22:49 | PCM48HPAN ---
Post Anesthesia Note - EVALUATION WITHIN 48HRS OF ANESTHETIC Vital Signs in Normal Range: Yes Patient Participated in Evaluation: Yes Respiratory Function Stable: Yes Airway Patent: Yes Cardiovascular Function Stable: Yes Hydration Status Stable: Yes Pain Control Satisfactory: Yes Nausea and Vomiting Control Satisfactory: Yes Mental Status Recovered: Yes Vital Signs: Last Vital Signs Temp 36.8 C 09/07/19 19:51 Pulse 85 09/07/19 19:51 Resp 16 09/07/19 19:51 BP 116/79 09/07/19 19:51 Pulse Ox 96 09/07/19 19:51
[2019-09-08] MEDS: Ibuprofen 800 MG Tab PO PRN ×2 (08:34→14:54)
--- NOTE | 2019-09-08 09:22 | PCM.PNPP ---
- General Info Date of Service: 09/08/19 Functional Status: Reports: Pain Controlled - Review of Systems General: Reports: No Symptoms HEENT: Reports: No Symptoms Pulmonary: Reports: No Symptoms Cardiovascular: Reports: No Symptoms Gastrointestinal: Reports: No Symptoms Genitourinary: Reports: No Symptoms Musculoskeletal: Reports: No Symptoms Skin: Reports: No Symptoms Neurological: Reports: No Symptoms Psychiatric: Reports: No Symptoms - General Info Date of Service: 09/08/19 - Patient Data Vital Signs - Most Recent: Last Vital Signs Temp 36.6 C 09/08/19 04:00 Pulse 69 09/08/19 04:00 Resp 14 09/08/19 04:00 BP 120/64 09/08/19 04:00 Pulse Ox 96 09/08/19 04:00 Weight - Most Recent: 107.955 kg Lab Results - Last 24 Hours: Laboratory Results - last 24 hr 09/08/19 Range/Units 05:33 Hgb 10.5 L (12.0-16.0) g/dL Hct 31.0 L (36.0-46.0) % Med Orders - Current: Current Medications Acetaminophen (Tylenol Extra Strength) 500 mg PO Q4H PRN PRN Reason: Pain Acetaminophen (Tylenol Extra Strength) 1,000 mg PO Q4H PRN PRN Reason: Pain Benzocaine/Menthol (Dermoplast Pain Relief 20%-0.5% [place]) 78 gm TOP ASDIRECTED PRN PRN Reason: Perineal Comfort Measure Bisacodyl (Dulcolax) 10 mg RECTAL ONETIME PRN PRN Reason: Constipation Butorphanol Tartrate (Stadol) 1 mg IVPUSH Q1H PRN PRN Reason: Pain Carboprost Tromethamine (Hemabate Ds) 250 mcg IM ASDIRECTED PRN PRN Reason: Post Hemorrhage Docusate Sodium (Colace) 100 mg PO BID PRN PRN Reason: Constipation Emollient Ointment (Lansinoh Hpa) 0 gm TOP ASDIRECTED PRN PRN Reason: Sore Nipples Lactated Ringer's (Ringers, Lactated) 1,000 mls @ 150 mls/hr IV ASDIRECTED MAUREEN Last Infusion: 09/07/19 12:57 Dose: 150 mls/hr Oxytocin/Sodium Chloride (Oxytocin 30 Unit/500 Ml-Ns) 30 unit in 500 mls @ 999 mls/hr IV TITRATE MAUREEN Last Admin: 09/07/19 14:58 Dose: 500 mls/hr Oxytocin/Sodium Chloride (Oxytocin 30 Unit/500 Ml-Ns) 30 unit in 500 mls @ 2 mls/hr IV TITRATE MAUREEN; Protocol Tranexamic Acid 1,000 mg/ (Sodium Chloride) 110 mls @ 660 mls/hr IV ONETIME PRN PRN Reason: Bleeding Ibuprofen (Motrin) 400 mg PO Q4H PRN PRN Reason: Pain Ibuprofen (Motrin) 800 mg PO Q6H PRN PRN Reason: Pain Last Admin: 09/08/19 08:34 Dose: 800 mg Lidocaine HCl (Xylocaine 1%) 50 ml INJECT ONETIME PRN PRN Reason: Laceration repair Methylergonovine Maleate (Methergine) 0.2 mg IM ASDIRECTED PRN PRN Reason: Post Hemorrhage Misoprostol (Cytotec) 200 mcg PO ONETIME PRN PRN Reason: Post Hemorrhage Misoprostol (Cytotec) 25 mcg VAG ONETIME PRN PRN Reason: Cervical Ripening Last Admin: 09/07/19 01:12 Dose: 25 mcg Misoprostol (Cytotec) 25 mcg VAG Q4H PRN PRN Reason: Cervical Ripening Last Admin: 09/07/19 09:15 Dose: 25 mcg Nalbuphine HCl (Nubain) 10 mg IVPUSH Q1H PRN PRN Reason: Pain (severe 7-10) Last Admin: 09/07/19 11:57 Dose: 10 mg Ondansetron HCl (Zofran) 4 mg IVPUSH Q4H PRN PRN Reason: Nausea/Vomiting Oxycodone HCl (Oxycodone) 5 mg PO Q2H PRN PRN Reason: Pain Sodium Chloride (Saline Flush) 10 ml FLUSH ASDIRECTED PRN PRN Reason: Keep Vein Open Sodium Chloride (Saline Flush) 2.5 ml FLUSH ASDIRECTED PRN PRN Reason: Keep Vein Open Sodium Chloride (Normal Saline) 10 ml IV ASDIRECTED PRN PRN Reason: IV Use Sterile Water (Sterile Water For Irrigation) 1,000 ml IRR ASDIRECTED PRN PRN Reason: delivery Terbutaline Sulfate (Brethine) 0.25 mg SUBCUT ASDIRECTED PRN PRN Reason: Tacysystole Phylicia Garcia (Tucks) 1 pad TOP ASDIRECTED PRN PRN Reason: comfort care Discontinued Medications Fentanyl/Bupivacaine HCl (Fentanyl/Bupivacaine/Ns 2 Mcg-0.125% 250 Ml) Confirm Administered Dose 250 mls @ as directed .ROUTE .STK-MED ONE Stop: 09/07/19 12:41 Last Admin: 09/07/19 13:40 Dose: Not Given Misoprostol (Cytotec) 25 mcg PO ONETIME ONE Stop: 09/07/19 00:32 Last Admin: 09/07/19 01:12 Dose: 25 mcg Misoprostol (Cytotec) 25 mcg PO Q4H MAUREEN Last Admin: 09/07/19 18:50 Dose: Not Given - Interaction Infant Disposition, : [place] in Room with Family Interaction: Holding Infant Infant Feeding: Attempted ; Nursed Fair/Poor Support Person: - Recovery Exam Fundal Tone: Firm Fundal Level: At Umbilicus Fundal Placement: Midline Lochia Amount: Scant Lochia Color: Rubra/Red Perineum Description: Intact, Minimal Bruising/Swelling Episiotomy/Laceration: None Bladder Status: Voiding Urinary Elimination: Voided - Exam General: Alert, Oriented HEENT: Pupils Equal Neck: Supple Lungs: Clear to Auscultation, Normal Respiratory Effort Cardiovascular: Regular Rate, Regular Rhythm GI/Abdominal Exam: Normal Bowel Sounds, Soft, Non-Tender, No Organomegaly, No Distention, No Abnormal Bruit, No Mass, Pelvis Stable Extremities: Normal Inspection, Normal Range of Motion, Non-Tender, No Pedal Edema, Normal Capillary Refill Skin: Warm, Dry, Intact Wound/Incisions: Healing Well Neurological: No New Focal Deficit Psy/Mental Status: Alert, Normal Affect, Normal Mood - Problem List Review Problem List Initiated/Reviewed/Updated: Yes - My Orders Last 24 Hours: My Active Orders 09/07/19 15:05 Patient Status [ADT] Routine May Shower [RC] ASDIRECTED Up ad Fiona [RC] ASDIRECTED Vital Signs [RC] PER UNIT ROUTINE Acetaminophen [Tylenol Extra Strength] 1,000 mg PO Q4H PRN Acetaminophen [Tylenol Extra Strength] 500 mg PO Q4H PRN Benzocaine/Menthol [Dermoplast Pain Relief 20%-0.5% [place]] 78 gm TOP ASDIRECTED PRN Docusate Sodium [Colace] 100 mg PO BID PRN Ibuprofen [Motrin] 400 mg PO Q4H PRN Ibuprofen [Motrin] 800 mg PO Q6H PRN Lanolin [Lansinoh HPA] See Dose Instructions TOP ASDIRECTED PRN bisacodyL [Dulcolax] 10 mg RECTAL ONETIME PRN oxyCODONE 5 mg PO Q2H PRN witch Daja [Tucks] 1 pad TOP ASDIRECTED PRN Assess Lochia [WOMSER] Per Unit Routine Assess Uterine Involution [WOMSER] Per Unit Routine Peripheral IV Discontinue [OM.PC] Routine 09/08/19 Breakfast Regular Diet [DIET] - Assessment Assessment:: Status post normal spontaneous vaginal delivery doing well we will send the patient home today - Plan Plan:: IUP 37+3 with PIH and GDM admitted for elective induction.
[2019-09-08 10:03] VITALS: BP 121/75; PULSE 77
== END 2019-09-08 18:36 | disposition home or self-care (01) | DRG 560 ==
LOC: MW.OBCHECK 00:06 → MW.OB 00:07 → MW.OBCHECK 00:28 → MW.OB 00:28 → OBSVTOIN 15:05 → MW.OB 21:30
PROVIDERS: ADMIT Obstetrics & Gynecology; ATTEND Obstetrics & Gynecology
PROC: 10E0XZZ Delivery of Products of Conception, External Approach (ICD-10-PCS; principal; 2019-09-07)
PROC: 10907ZC Drainage of Amniotic Fluid, Therapeutic from Products of Conception, Via Natural or Artificial Opening (ICD-10-PCS; 2019-09-07)
DX: O13.4 Gestational [pregnancy-induced] hypertension without significant proteinuria, complicating childbirth (principal); Z68.41 Body mass index [BMI] 40.0-44.9, adult; O99.214 Obesity complicating childbirth; E66.9 Obesity, unspecified; O24.429 Gestational diabetes mellitus in childbirth, unspecified control; Z79.82 Long term (current) use of aspirin; Z79.899 Other long term (current) drug therapy; Z37.0 Single live birth; Z90.49 Acquired absence of other specified parts of digestive tract; Z90.89 Acquired absence of other organs; Z3A.37 37 weeks gestation of pregnancy
CPT/HCPCS: 01967; 36415; 51702; 59025; 59409; 85014; 85018; 85027; 86592; 86593; 86850; 86900; 86901; A9270-GY; J2300; J2590; J7120

== ENCOUNTER 2020-12-18 11:26 | Emergency (ER) | payer BC ==
[2020-12-18] MEDS ORDERED: Sodium Chloride 0.9% 2.5 ML Syringe FLUSH PRN (11:47)
[2020-12-18] MEDS ORDERED: Ketorolac 15 MG/ML SDV IVPUSH ONE (11:47)
[2020-12-18] MEDS ORDERED: Ondansetron 4 MG/2 ML SDV IVPUSH ONE (11:47)
[2020-12-18] MEDS ORDERED: Sodium Chloride 0.9% 10 ML Syringe FLUSH PRN (11:47)
[2020-12-18] MEDS ORDERED: Tamsulosin 0.4 MG Cap.ER PO ONE (11:49)
[2020-12-18] MEDS ORDERED: Sodium Chloride 0.9% 1,000 ML IV ONE (11:50)
--- NOTE | 2020-12-18 11:51 | EDM.PDOC ---
ED HPI GENERAL MEDICAL PROBLEM - General Chief Complaint: Genitourinary Problem Stated Complaint: POSSIBLE KIDNEY STONE Time Seen by Provider: 12/18/20 11:32 - History of Present Illness INITIAL COMMENTS - FREE TEXT/NARRATIVE: History of present illness: [] The patient suffers right flank pain right upper quadrant pain for 5 days. Its gradually getting worse. It is constant. Its severe. It takes away her appetite. She is nauseated. She is not vomiting. She has no change in her urine flow or her bowel movements. She does not have fever or chills. The patient had a CT of the abdomen pelvis on 14 December and it showed a 9 mm stone in the renal pelvis on the right with pelviectasis. Review of systems: As per history of present illness and below otherwise all systems reviewed and negative. Past medical history: As per history of present illness and as reviewed below otherwise noncontributory. Surgical history: As per history of present illness and as reviewed below otherwise noncontributory. Social history: No reported history of drug or alcohol abuse. Family history: As per history of present illness and as reviewed below otherwise noncontributory. Physical exam: Constitutional - well developed, well-nourished and in no acute distress HEENT - normocephalic, no evidence of trauma - external nose and mouth normal - no mass in neck and no JVD - mucosae moist EYES - full EOM, PERRL, no icterus - no evidence of inflammation, injection, or drainage Respiratory - no respiratory distress, equal bilateral expansion, lungs clear to auscultation and no abnormal lung sounds Cardiovascular - Regular Rhythm with S1 and S2 appreciated and no murmur, gallop or rub. GI - abdomen soft without distension or organomegaly - normal bowel sounds - no guard or rebound Musculoskeletal no gross deformity of long bones or joints - no tenderness, swelling or edema Neurologic - Alert and oriented times four - CN II-XII grossly intact - motor sensory and coordination symmetrically normal Psychiatric - appropriate mood and affect with normal thought content Hematologic - No petechiae or purpura - mucosa appropriate color and sclera not pale - normal nail bed color and refill Integument - no rash or evidence of trauma - normal turgor Diagnostics: [] Therapeutics: [] Impression: [] Plan: [] Definitive disposition and diagnosis as appropriate pending reevaluation and review of above. Right Back Pain Score (Numeric/FACES): 9 - Related Data Allergies Allergy/AdvReac Type Severity Reaction Status Date / Time No Known Allergies Allergy Verified 12/18/20 11:41 Home Meds: Home Meds Acetaminophen/oxyCODONE [Percocet 325-10 MG] 1 tab PO Q4H PRN #14 tab 12/18/20 [Rx] Tamsulosin [Tamsulosin 24 Hr] 0.4 mg PO DAILY #14 cap.er 12/18/20 [Rx] Past Medical History - Past Health History Medical/Surgical History: Denies Medical/Surgical History HEENT History: Reports: Other (See Below) Other HEENT History: wears glasses/contacts Cardiovascular History: Reports: None Respiratory History: Reports: None Gastrointestinal History: Reports: None Genitourinary History: Reports: Renal Calculus 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 , Musculoskeletal History: Reports: Fracture, Other (See Below) Other Musculoskeletal History: fx jaw Neurological History: Reports: Migraines Psychiatric History: Reports: Anxiety, Other (See Below) Endocrine/Metabolic History: Reports: Obesity/BMI 30+ Hematologic History: Reports: None Immunologic History: Reports: None Oncologic (Cancer) History: Reports: None Dermatologic History: Reports: Psoriasis - Infectious Disease History Infectious Disease History: Reports: Chicken Pox - Past Surgical History Head Surgeries/Procedures: Reports: None HEENT Surgical History: Reports: Adenoidectomy, Oral Surgery, Tonsillectomy Other HEENT Surgeries/Procedures: jaw surgery to correct underbite (has plates and screws), wisdom teeth removed Cardiovascular Surgical History: Reports: None Respiratory Surgical History: Reports: None GI Surgical History: Reports: Cholecystectomy, Colonoscopy Female Surgical History: Reports: D&C, Other (See Below) Other Female Surgeries/Procedures: Laparoscopy for excision of Ectopic Pr egnancy Neurological Surgical History: Reports: None Musculoskeletal Surgical History: Reports: Carpal Tunnel Other Musculoskeletal Surgeries/Procedures:: bilateral CTR Oncologic Surgical History: Reports: None Dermatological Surgical History: Reports: None Social & Family History - Family History Family Medical History: No Pertinent Family History - Tobacco Use Tobacco Use Status *Q: Current Every Day Tobacco User Years of Tobacco use: 4 Packs/Tins Daily: 0.3 - Caffeine Use Caffeine Use: Reports: None - Recreational Drug Use Recreational Drug Use: No ED ROS GENERAL - Review of Systems Review Of Systems: Comprehensive ROS is negative, except as noted in HPI. ED EXAM, GENERAL - Physical Exam Exam: See Below Free Text/Narrative:: My physical exam is in the HPI Course - Vital Signs Text/Narrative:: 1244 the patient's KUB shows that the stone is moved down to the level of just above the right lateral spinous process of L4. Her urine does not show any convincing evidence of infection. Her creatinine stable. Her kidney size is very difficult to ascertain but apparently not enlarged on the KUB. The patient's pain went from an 8 to a 5 with ketorolac and Flomax. She has not tried a course of Flomax and is only drinking a gallon of liquids a day. My options are limited because a had no urologist in town and the urologist in the nearest town and Ariana nursing everyone from [facility] in [facility] in 2 weeks behind or more making appointments. The patient understands these concerns. She is willing to try increased pain medicine, Flomax, increase fluid intake with careful attention to providing electrolyte so she does not become hyponatremic. If she gets a high fever, intolerable pain, or wants to have a reassessment during the weekday when we have ultrasound available locally in transfer options could be provided she will return otherwise she will follow up with urology and Ariana. Last Recorded V/S: Last Vital Signs Temp 36.8 C 12/18/20 11:42 Pulse 57 L 12/18/20 12:36 Resp 16 12/18/20 11:42 BP 152/87 H 12/18/20 12:36 Pulse Ox 97 12/18/20 12:36 - Orders/Labs/Meds Orders: Active Orders 24 hr Category Date Time Status Sodium Chloride 0.9% [Normal Saline] 1,000 ml Med 12/18/20 11:50 Active IV .Bolus Sodium Chloride 0.9% [Saline Flush] Med 12/18/20 11:47 Active 10 ml FLUSH ASDIRECTED PRN Sodium Chloride 0.9% [Saline Flush] Med 12/18/20 11:47 Active 2.5 ml FLUSH ASDIRECTED PRN Saline Lock Insert [OM.PC] Stat Oth 12/18/20 11:47 Ordered Medication Orders Sodium Chloride (Normal Saline) 1,000 mls @ 1,000 mls/hr IV .Bolus ONE Stop: 12/18/20 12:49 Last Admin: 12/18/20 12:00 Dose: 1,000 mls/hr Documented by: JACOB Sodium Chloride (Sodium Chloride 0.9% 10 Ml Syringe) 10 ml FLUSH ASDIRECTED PRN PRN Reason: Keep Vein Open Last Admin: 12/18/20 12:01 Dose: 10 ml Documented by: JACOB Sodium Chloride (Sodium Chloride 0.9% 2.5 Ml Syringe) 2.5 ml FLUSH ASDIRECTED PRN PRN Reason: Keep Vein Open Last Admin: 12/18/20 12:01 Dose: 2.5 ml Documented by: JACOB Labs: Laboratory Tests 12/18/20 12/18/20 12/18/20 Range/Units 11:35 11:35 11:35 WBC 7.09 (4.0-11.0) K/uL RBC 5.29 (4.30-5.90) M/uL Hgb 16.5 H (12.0-16.0) g/dL Hct 45.5 (36.0-46.0) % MCV 86.0 (80.0-98.0) fL MCH 31.2 (27.0-32.0) pg MCHC 36.3 (31.0-37.0) g/dL RDW Std Deviation 38.4 (28.0-62.0) fl RDW Coeff of Zeb 12 (11.0-15.0) % Plt Count 210 (150-400) K/uL MPV 10.20 (7.40-12.00) fL Neut % (Auto) 65.8 (48.0-80.0) % Lymph % (Auto) 27.5 (16.0-40.0) % [place] % (Auto) 5.4 (0.0-15.0) % Eos % (Auto) 1.0 (0.0-7.0) % Baso % (Auto) 0.3 (0.0-1.5) % Neut # (Auto) 4.7 (1.4-5.7) K/uL Lymph # (Auto) 2.0 (0.6-2.4) K/uL [place] # (Auto) 0.4 (0.0-0.8) K/uL Eos # (Auto) 0.1 (0.0-0.7) K/uL Baso # (Auto) 0.0 (0.0-0.1) K/uL Nucleated RBC % 0.0 /100WBC Nucleated RBCs # 0 K/uL Sodium 139 (136-145) mmol/L Potassium 4.8 (3.5-5.1) mmol/L Chloride 103 (98-107) mmol/L Carbon Dioxide 29.4 (21.0-32.0) mmol/L BUN 14 (7.0-18.0) mg/dL Creatinine 0.9 (0.6-1.0) mg/dL Est Cr Clr Drug Dosing 74.23 mL/min Estimated GFR (MDRD) > 60.0 ml/min Glucose 113 H (74-106) mg/dL Calcium 10.0 (8.5-10.1) mg/dL Urine Color YELLOW Urine Appearance CLEAR Urine pH 6.0 (5.0-8.0) Ur Specific [place] 1.010 (1.001-1.035) Urine Protein NEGATIVE (NEGATIVE) mg/dL Urine Glucose (UA) NEGATIVE (NEGATIVE) mg/dL Urine Ketones NEGATIVE (NEGATIVE) mg/dL Urine Occult Blood TRACE-INTACT H (NEGATIVE) Urine Nitrite NEGATIVE (NEGATIVE) Urine Bilirubin NEGATIVE (NEGATIVE) Urine Urobilinogen 0.2 (<2.0) EU/dL Ur Leukocyte Esterase SMALL H (NEGATIVE) Urine RBC 0-1 (0-2/HPF) Urine WBC 2-4 (0-5/HPF) Ur Epithelial Cells FEW (NONE-FEW) Urine Bacteria FEW (NEGATIVE) Meds: Medications Generic Name Dose Route Start Last Admin Trade Name Freq PRN Reason Stop Dose Admin Sodium Chloride 1,000 mls @ 1,000 mls/hr 12/18/20 11:50 12/18/20 12:00 Normal Saline IV 12/18/20 12:49 1,000 mls/hr .Bolus ONE Administration Sodium Chloride 10 ml 12/18/20 11:47 12/18/20 12:01 Sodium Chloride 0.9% 10 Ml Syringe FLUSH 10 ml ASDIRECTED PRN Administration Keep Vein Open Sodium Chloride 2.5 ml 12/18/20 11:47 12/18/20 12:01 Sodium Chloride 0.9% 2.5 Ml Syringe FLUSH 2.5 ml ASDIRECTED PRN Administration Keep Vein Open Discontinued Medications Generic Name Dose Route Start Last Admin Trade Name Elpidio PRN Reason Stop Dose Admin Ketorolac Tromethamine 15 mg 12/18/20 11:47 12/18/20 12:00 Ketorolac 15 Mg/Ml Sdv IVPUSH 12/18/20 11:48 15 mg ONETIME ONE Administration Ondansetron HCl 4 mg 12/18/20 11:47 12/18/20 12:00 Ondansetron 4 Mg/2 Ml Sdv IVPUSH 12/18/20 11:48 4 mg ONETIME ONE Administration Tamsulosin HCl 0.4 mg 12/18/20 11:49 12/18/20 12:00 Tamsulosin 0.4 Mg Cap.Er PO 12/18/20 11:50 0.4 mg ONETIME ONE Administration Departure - Departure Time of Disposition: 12:51 Disposition: Home, Self-Care 01 Condition: Good Clinical Impression: Ureteral stone - Discharge Information Referrals: Anita Ruiz, DIANA [Primary Care Provider] - Zara Hewitt DO [Ordering Only Provider] - Forms: ED Department Discharge Additional Instructions: The closest urologist I can following up is at [place] in my not. Contact [facility] and see if they have a urologist that rotates down in the area they can see you. Strain your urine and if you pass the stone this event should have passed not needing any further care. If your pain is intolerable, you get a high fever, you are vomiting all of your medicines, or for any reason you feel like he needs another evaluation return. It is easier for me to evaluate a kidney obstruction by ultrasound during the weekday when we have the availability of ultrasound techs here. [facility] [address] [place] [address] [id number] [address] [address] The following information is given to patients seen in the emergency department who are being discharged to home. This information is to outline your options for follow-up care. We provide all patients seen in our emergency department with a follow-up referral. The need for follow-up, as well as the timing and circumstances, are variable depending upon the specifics of your emergency department visit. If you don't have a primary care physician on staff, we will provide you with a referral. We always advise you to contact your personal physician following an emergency department visit to inform them of the circumstance of the visit and for follow-up with them and/or the need for any referrals to a consulting specialist. The emergency department will also refer you to a specialist when appropriate. This referral assures that you have the opportunity for follow-up care with a specialist. All of these measure are taken in an effort to provide you with optimal care, which includes your follow-up. Under all circumstances we always encourage you to contact your private physician who remains a resource for coordinating your care. When calling for follow-up care, please make the office aware that this follow-up is from your recent emergency room visit. If for any reason you are refused follow-up, please contact the [facility] Emergency Department at and asked to speak to the emergency department charge nurse. Sepsis Event Note (ED) - Evaluation Sepsis Screening Result: No Definite Risk - Focused Exam Vital Signs: Vital Signs Temp Pulse Resp BP Pulse Ox 12/18/20 12:36 57 L 152/87 H 97 12/18/20 12:06 59 L 142/92 H 96 12/18/20 11:42 36.8 C 87 16 153/103 H 96 - My Orders Last 24 Hours: My Active Orders 12/18/20 11:47 Sodium Chloride 0.9% [Saline Flush] 10 ml FLUSH ASDIRECTED PRN Sodium Chloride 0.9% [Saline Flush] 2.5 ml FLUSH ASDIRECTED PRN Saline Lock Insert [OM.PC] Stat 12/18/20 11:50 Sodium Chloride 0.9% [Normal Saline] 1,000 ml IV .Bolus - Assessment/Plan Last 24 Hours: My Active Orders 12/18/20 11:47 Sodium Chloride 0.9% [Saline Flush] 10 ml FLUSH ASDIRECTED PRN Sodium Chloride 0.9% [Saline Flush] 2.5 ml FLUSH ASDIRECTED PRN Saline Lock Insert [OM.PC] Stat 12/18/20 11:50 Sodium Chloride 0.9% [Normal Saline] 1,000 ml IV .Bolus
[2020-12-18 12:00] LABS: BLOOD UREA NITROGEN,BUN 14 mg/dL (7.0-18.0); CARBON DIOXIDE,CO2 29.4 mmol/L (21.0-32.0); CHLORIDE,CL 103 mmol/L (98-107); GLUCOSE RANDOM 113 mg/dL (74-106); POTASSIUM,K 4.8 mmol/L (3.5-5.1); SODIUM,NA 139 mmol/L (136-145)
--- NOTE | 2020-12-18 12:26 | CR ---
INDICATION: Known kidney stone. Assess stone location. TECHNIQUE: Two views of the abdomen and pelvis. COMPARISON: CT stone study from 12/14/2020. IMPRESSION: The previously noted 9 mm stone in the right renal pelvis is now in the expected location of the proximal right ureter (at the L4 level). Dictated by Elio Haley MD @ 12/18/2020 12:26:22 PM Dictated by: Elio Haley MD @ 12/18/2020 12:26:26 (Electronically Signed)
[2020-12-18 13:35] VITALS: BP 156/85; PULSE 58
== END 2020-12-18 13:10 | disposition home or self-care (01) ==
LOC: MW.ED 11:26
DX: N20.2 Calculus of kidney with calculus of ureter (principal); E66.9 Obesity, unspecified; Z68.35 Body mass index [BMI] 35.0-35.9, adult; Z72.0 Tobacco use
CPT/HCPCS: 36415; 74018; 80048; 81001; 85025; 96374; 96375; 99284; A9270; J1885; J2405; J7030

== ENCOUNTER 2020-12-29 07:01 | Emergency (ER) | payer BC ==
[2020-12-29] MEDS ORDERED: Ondansetron 4 MG/2 ML SDV IVPUSH ONE (07:28)
[2020-12-29] MEDS ORDERED: Ketorolac 15 MG/ML SDV IVPUSH ONE (07:28)
[2020-12-29] MEDS ORDERED: fentaNYL 50 MCG/ML SDV IVPUSH ONE ×2 (07:28→10:27)
[2020-12-29] MEDS ORDERED: Sodium Chloride 0.9% 1,000 ML IV ONE (07:28)
--- NOTE | 2020-12-29 07:37 | EDM.PDOC ---
ED HPI GENERAL MEDICAL PROBLEM - General Chief Complaint: Abdominal Pain Stated Complaint: RIGHT FLANK PAIN Time Seen by Provider: 12/29/20 07:11 Source of Information: Reports: Patient - History of Present Illness INITIAL COMMENTS - FREE TEXT/NARRATIVE: Patient presents with right flank and abdominal pain. Patient had lithotripsy for a 9 mm stone yesterday. She woke up today having a hard time controlling the pain and is not able to control with medications at home. She is taken Tylenol with [place] 1 tablet and 400 mg of ibuprofen. No exacerbating relieving factors. Positive blood in the urine. No fevers. No dysuria. No alleviating factors Abdomen Pain Score (Numeric/FACES): 10 - Related Data Allergies Allergy/AdvReac Type Severity Reaction Status Date / Time No Known Allergies Allergy Verified 12/29/20 07:40 Home Meds: Home Meds Acetaminophen/HYDROcodone [HYDROcodone-Acetaminophen 5-325 MG *] 2 tab PO Q6H PRN #24 each 12/29/20 [Rx] Ibuprofen 600 mg PO Q6HR PRN #30 tablet 12/29/20 [Rx] levoFLOXacin [Levaquin] 500 mg PO DAILY #7 tab 12/29/20 [Rx] Past Medical History - Past Health History Medical/Surgical History: Denies Medical/Surgical History HEENT History: Reports: Other (See Below) Other HEENT History: wears glasses/contacts Cardiovascular History: Reports: None Respiratory History: Reports: None Gastrointestinal History: Reports: None Genitourinary History: Reports: Renal Calculus 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 , Musculoskeletal History: Reports: Fracture, Other (See Below) Other Musculoskeletal History: fx jaw Neurological History: Reports: Migraines Psychiatric History: Reports: Anxiety, Other (See Below) Endocrine/Metabolic History: Reports: Obesity/BMI 30+ Hematologic History: Reports: None Immunologic History: Reports: None Oncologic (Cancer) History: Reports: None Dermatologic History: Reports: Psoriasis - Infectious Disease History Infectious Disease History: Reports: Chicken Pox - Past Surgical History Head Surgeries/Procedures: Reports: None HEENT Surgical History: Reports: Adenoidectomy, Oral Surgery, Tonsillectomy Other HEENT Surgeries/Procedures: jaw surgery to correct underbite (has plates and screws), wisdom teeth removed Cardiovascular Surgical History: Reports: None Respiratory Surgical History: Reports: None GI Surgical History: Reports: Cholecystectomy, Colonoscopy Female Surgical History: Reports: D&C, Other (See Below) Other Female Surgeries/Procedures: Laparoscopy for excision of Ectopic Neurological Surgical History: Reports: None Musculoskeletal Surgical History: Reports: Carpal Tunnel Other Musculoskeletal Surgeries/Procedures:: bilateral CTR Oncologic Surgical History: Reports: None Dermatological Surgical History: Reports: None Social & Family History - Family History Family Medical History: No Pertinent Family History - Tobacco Use Tobacco Use Status *Q: Unknown Ever Used Tobacco Second Hand Smoke Exposure: No - Caffeine Use Caffeine Use: Reports: None - Recreational Drug Use Recreational Drug Use: No ED ROS GENERAL - Review of Systems Review Of Systems: See Below Constitutional: Denies: Fever GI/Abdominal: Reports: Abdominal Pain, Nausea : Reports: Hematuria Musculoskeletal: Reports: Back Pain Skin: Denies: Rash ED EXAM, GENERAL - Physical Exam Exam: See Below Free Text/Narrative:: CONSTITUTIONAL: well appearing in no acute distress SKIN: dry, and intact without rash HENT: Normocephalic, atraumatic, NECK: normal range of motion PULMONARY: normal chest rise and fall, no respiratory distress or stridor NEUROLOGIC: normal speech, moves all extremities, grossly non-focal Abdominal: Patient with mild right-sided abdominal tenderness. Mild right flank tenderness. MUSCULOSKELETAL: no gross deformities, atraumatic PSYCHIATRIC: normal mood and affect Course - Vital Signs Text/Narrative:: Differential diagnosis: Pyelonephritis, kidney stone, appendicitis, acute cholecystitis, other Patient presents with pain after lithotripsy. Patient with significant leukocytosis that may be expected from stress response. Urine does have nitrites but I spoke to the urologist that states this can be typical. The urine was clean prior to the procedure. Nonetheless antibiotics were given to cover for the possibility of infection. CT scan shows no alternative pathology. The appendix looks normal. Most of the stone fragments are distal. I did speak to her urologist, Dr. Villegas. He advises outpatient management he will follow-up as an outpatient with return precautions and adding ibuprofen and doubling up on narcotic pain medication Last Recorded V/S: Last Vital Signs Temp 37.0 C 12/29/20 07:37 Pulse 87 12/29/20 07:37 Resp 20 12/29/20 07:37 BP 153/78 H 12/29/20 07:37 Pulse Ox 99 12/29/20 07:37 - Orders/Labs/Meds Labs: Laboratory Tests 12/29/20 12/29/20 12/29/20 Range/Units 07:30 07:30 08:45 WBC 15.97 H (4.0-11.0) K/uL RBC 5.30 (4.30-5.90) M/uL Hgb 16.4 H (12.0-16.0) g/dL Hct 45.1 (36.0-46.0) % MCV 85.1 (80.0-98.0) fL MCH 30.9 (27.0-32.0) pg MCHC 36.4 (31.0-37.0) g/dL RDW Std Deviation 37.1 (28.0-62.0) fl RDW Coeff of Zeb 12 (11.0-15.0) % Plt Count 240 (150-400) K/uL MPV 10.50 (7.40-12.00) fL Neut % (Auto) 76.3 (48.0-80.0) % Lymph % (Auto) 16.3 (16.0-40.0) % [place] % (Auto) 6.9 (0.0-15.0) % Eos % (Auto) 0.4 (0.0-7.0) % Baso % (Auto) 0.1 (0.0-1.5) % Neut # (Auto) 12.2 H (1.4-5.7) K/uL Lymph # (Auto) 2.6 H (0.6-2.4) K/uL [place] # (Auto) 1.1 H (0.0-0.8) K/uL Eos # (Auto) 0.1 (0.0-0.7) K/uL Baso # (Auto) 0.0 (0.0-0.1) K/uL Nucleated RBC % 0.0 /100WBC Nucleated RBCs # 0 K/uL Sodium 136 (136-145) mmol/L Potassium 4.3 (3.5-5.1) mmol/L Chloride 99 (98-107) mmol/L Carbon Dioxide 22.9 (21.0-32.0) mmol/L BUN 11 (7.0-18.0) mg/dL Creatinine 0.7 (0.6-1.0) mg/dL Est Cr Clr Drug Dosing 99.63 mL/min Estimated GFR (MDRD) > 60.0 ml/min Glucose 105 (74-106) mg/dL Calcium 9.2 (8.5-10.1) mg/dL Total Bilirubin 0.6 (0.2-1.0) mg/dL AST 43 H (15-37) IU/L ALT 60 (14-63) IU/L Alkaline Phosphatase 63 (46-116) U/L Total Protein 8.2 (6.4-8.2) g/dL Albumin 4.4 (3.4-5.0) g/dL Globulin 3.8 (2.6-4.0) g/dL Albumin/Globulin Ratio 1.2 (0.9-1.6) Lipase 53 L (73-393) U/L Urine Color RED Urine Appearance CLOUDY Urine pH 7.5 (5.0-8.0) Ur Specific [place] 1.015 (1.001-1.035) Urine Protein 100 H (NEGATIVE) mg/dL Urine Glucose (UA) NEGATIVE (NEGATIVE) mg/dL Urine Ketones 15 H (NEGATIVE) mg/dL Urine Occult Blood LARGE H (NEGATIVE) Urine Nitrite POSITIVE H (NEGATIVE) Urine Bilirubin NEGATIVE (NEGATIVE) Urine Urobilinogen 4.0 H (<2.0) EU/dL Ur Leukocyte Esterase MODERATE H (NEGATIVE) Urine RBC TOO NUMEROUS TO CT H (0-2/HPF) Urine WBC 0-1 (0-5/HPF) Ur Epithelial Cells OCCASIONAL (NONE-FEW) Urine Bacteria FEW (NEGATIVE) Urine Mucus LIGHT (NONE-MOD) Urine HCG, Qual (NEGATIVE) 12/29/20 Range/Units 08:45 WBC (4.0-11.0) K/uL RBC (4.30-5.90) M/uL Hgb (12.0-16.0) g/dL Hct (36.0-46.0) % MCV (80.0-98.0) fL MCH (27.0-32.0) pg MCHC (31.0-37.0) g/dL RDW Std Deviation (28.0-62.0) fl RDW Coeff of Zeb (11.0-15.0) % Plt Count (150-400) K/uL MPV (7.40-12.00) fL Neut % (Auto) (48.0-80.0) % Lymph % (Auto) (16.0-40.0) % [place] % (Auto) (0.0-15.0) % Eos % (Auto) (0.0-7.0) % Baso % (Auto) (0.0-1.5) % Neut # (Auto) (1.4-5.7) K/uL Lymph # (Auto) (0.6-2.4) K/uL [place] # (Auto) (0.0-0.8) K/uL Eos # (Auto) (0.0-0.7) K/uL Baso # (Auto) (0.0-0.1) K/uL Nucleated RBC % /100WBC Nucleated RBCs # K/uL Sodium (136-145) mmol/L Potassium (3.5-5.1) mmol/L Chloride (98-107) mmol/L Carbon Dioxide (21.0-32.0) mmol/L BUN (7.0-18.0) mg/dL Creatinine (0.6-1.0) mg/dL Est Cr Clr Drug Dosing mL/min Estimated GFR (MDRD) ml/min Glucose (74-106) mg/dL Calcium (8.5-10.1) mg/dL Total Bilirubin (0.2-1.0) mg/dL AST (15-37) IU/L ALT (14-63) IU/L Alkaline Phosphatase (46-116) U/L Total Protein (6.4-8.2) g/dL Albumin (3.4-5.0) g/dL Globulin (2.6-4.0) g/dL Albumin/Globulin Ratio (0.9-1.6) Lipase (73-393) U/L Urine Color Urine Appearance Urine pH (5.0-8.0) Ur Specific [place] (1.001-1.035) Urine Protein (NEGATIVE) mg/dL Urine Glucose (UA) (NEGATIVE) mg/dL Urine Ketones (NEGATIVE) mg/dL Urine Occult Blood (NEGATIVE) Urine Nitrite (NEGATIVE) Urine Bilirubin (NEGATIVE) Urine Urobilinogen (<2.0) EU/dL Ur Leukocyte Esterase (NEGATIVE) Urine RBC (0-2/HPF) Urine WBC (0-5/HPF) Ur Epithelial Cells (NONE-FEW) Urine Bacteria (NEGATIVE) Urine Mucus (NONE-MOD) Urine HCG, Qual NEGATIVE (NEGATIVE) Meds: Medications Discontinued Medications Generic Name Dose Route Start Last Admin Trade Name Elpidio PRN Reason Stop Dose Admin Fentanyl 50 mcg 12/29/20 07:28 12/29/20 07:50 Fentanyl 50 Mcg/Ml Sdv IVPUSH 12/29/20 07:29 50 mcg ONETIME ONE Administration Fentanyl 50 mcg 12/29/20 10:27 12/29/20 11:05 Fentanyl 50 Mcg/Ml Sdv IVPUSH 12/29/20 10:28 50 mcg ONETIME ONE Administration Sodium Chloride 1,000 mls @ 999 mls/hr 12/29/20 07:28 12/29/20 07:52 Normal Saline IV 12/29/20 08:28 999 mls/hr .BOLUS ONE Administration Levofloxacin/Dextrose 500 mg/ 100 mls @ 100 mls/hr 12/29/20 09:11 12/29/20 10:11 Premix IV 12/29/20 10:10 100 mls/hr ONETIME ONE Administration Iopamidol 100 ml 12/29/20 09:44 12/29/20 09:44 Iopamidol 755 Mg/Ml 500 Ml Multipack Bottle IVPUSH 12/29/20 09:45 100 ml ONETIME STA Administration Ketorolac Tromethamine 15 mg 12/29/20 07:28 12/29/20 07:50 Ketorolac 15 Mg/Ml Sdv IVPUSH 12/29/20 07:29 15 mg ONETIME ONE Administration Ondansetron HCl 4 mg 12/29/20 07:28 12/29/20 07:50 Ondansetron 4 Mg/2 Ml Sdv IVPUSH 12/29/20 07:29 4 mg ONETIME ONE Administration Departure - Departure Time of Disposition: 11:09 Disposition: Home, Self-Care 01 Condition: Good Clinical Impression: Kidney stone - Discharge Information Instructions: Percutaneous Nephrolithotomy, Care After Referrals: Anita Ruiz [employer] [Primary Care Provider] - Forms: ED Department Discharge Additional Instructions: Follow-up with your urologist in the next couple of days. Return for fevers, inability to tolerate pain, change or worsening condition or lack of improvement Sepsis Event Note (ED) - Focused Exam Vital Signs: Vital Signs Temp Pulse Resp BP Pulse Ox 12/29/20 07:37 37.0 C 87 20 153/78 H 99
[2020-12-29 08:04] LABS: BLOOD UREA NITROGEN,BUN 11 mg/dL (7.0-18.0); CARBON DIOXIDE,CO2 22.9 mmol/L (21.0-32.0); CHLORIDE,CL 99 mmol/L (98-107); GLUCOSE RANDOM 105 mg/dL (74-106); LIPASE 53 U/L (73-393); POTASSIUM,K 4.3 mmol/L (3.5-5.1); SODIUM,NA 136 mmol/L (136-145)
[2020-12-29] MEDS ORDERED: Levofloxacin/Dextrose 5%-Water 500 MG in Premix Bag 1 BAG IV ONE (09:11)
[2020-12-29] MEDS ORDERED: Iopamidol 755 MG/ML 500 ML Multipack Bottle IVPUSH STA (09:44)
--- NOTE | 2020-12-29 10:18 | CT ---
Indication: Kidney stones, lithotripsy continued abdominal pain Technique: Volumetric multidetector CT images of the abdomen and pelvis were obtained after the administration of intravenous contrast. 100 cc Isovue 370 low osmolar intravenous contrast Comparison: None available. Findings: The lung bases are clear. The liver is normal in attenuation without intrahepatic biliary ductal dilatation. The portal vein is patent. There is prior cholecystectomy. There is no significant common biliary ductal dilatation or abrupt cut off. The spleen is normal in enhancement and size. The stomach and duodenum are grossly unremarkable. The pancreas is normal in enhancement without significant atrophy. The adrenal glands are unremarkable. There is right-sided hydronephrosis and mild hydroureter with a somewhat eccentric residual calculus seen near the vicinity of the ureteropelvic junction measuring 4.4 millimeters. There is additional calculus within the distal right ureter just below the pelvic inlet measuring 4 millimeters. And then there is an additional calculus within the right ureterovesicular junction measuring 6.7 millimeters. There is moderate stool seen throughout the colon with distal colonic diverticulosis without evidence of diverticulitis. The appendix is unremarkable. There is no significant mesenteric, retroperitoneal, or pelvic sidewall lymph nodes. The aorta is nonaneurysmal. There is no significant atherosclerotic disease appreciated. There is an involuting right ovarian follicle, otherwise the pelvic viscera are grossly within normal limits. There is no free fluid or free air. Postoperative change of the anterior abdominal wall is appreciated. The lumbar vertebral body heights are grossly maintained in satisfactory alignment without acute osseous abnormality or significant degenerative change. Impression: Persistent right-sided hydronephrosis and hydroureter with multiple fragments of previous likely lithotripsied stone with a small proximal fragment, and two distal fragments, one just beyond the pelvic inlet and one at the ureterovesicular junction with persistent hydronephrosis and hydroureter. No evidence of abnormal corticomedullary differentiation or appendicitis. Please note that all CT scans at this facility use dose modulation, iterative reconstruction, and/or weight-based dosing when appropriate to reduce radiation dose to as low as reasonably achievable. Dictated by Bobby Harvey MD @ 12/29/2020 10:17:[address] Bobby Harvey @ Dec 29 2020 10:17AM
[2020-12-29 19:39] VITALS: BP 135/84; PULSE 82
== END 2020-12-29 11:35 | disposition home or self-care (01) ==
LOC: MW.ED 07:01
DX: N13.2 Hydronephrosis with renal and ureteral calculous obstruction (principal); E66.9 Obesity, unspecified; Z68.30 Body mass index [BMI] 30.0-30.9, adult; G43.909 Migraine, unspecified, not intractable, without status migrainosus; Z79.899 Other long term (current) drug therapy
CPT/HCPCS: 36415; 74177; 80053; 81001; 81025; 83690; 85025; 96365; 96375; 96376; 99284; J1885; J1956; J2405; J3010; J7030; Q9967

== ENCOUNTER 2023-05-29 17:59 | Inpatient (IN) | payer BC ==
[2023-05-29] MEDS ORDERED: Sodium Chloride 0.9% 10 ML Syringe FLUSH PRN (18:14)
[2023-05-29] MEDS ORDERED: Misoprostol 25 MCG (1/4 of 100 MCG) Tab VAG PRN ×2 (18:14)
[2023-05-29] MEDS ORDERED: Lidocaine 1% 50 ML MDV INJECT PRN (18:14)
[2023-05-29] MEDS ORDERED: Sodium Chloride 0.9% 20 ML SDV IV PRN (18:14)
[2023-05-29] MEDS ORDERED: Sodium Chloride 0.9% 2.5 ML Syringe FLUSH PRN (18:14)
[2023-05-29] MEDS ORDERED: Methylergonovine 0.2 MG/1 ML Amp IM PRN (18:14)
[2023-05-29] MEDS ORDERED: Terbutaline 1 MG/ML SDV SUBCUT PRN (18:14)
[2023-05-29] MEDS ORDERED: Butorphanol 1 MG/ML SDV IVPUSH PRN (18:14)
[2023-05-29] MEDS ORDERED: Tranexamic Acid IN NACL,ISO-OS 1,000 MG in Premix Bag 1 BAG IV PRN ×2 (18:14)
[2023-05-29] MEDS ORDERED: Carboprost Tromethamine 250 MCG/1 mL Vial IM PRN (18:14)
[2023-05-29] MEDS ORDERED: Misoprostol 200 MCG Tab PO PRN (18:14)
[2023-05-29] MEDS ORDERED: Water For Irrigation,Sterile 1,000 ML Container IRR PRN (18:14)
[2023-05-29] MEDS ORDERED: Oxytocin/0.9 % Sodium Chloride 30 UNIT/500 ML BAG IV SCH ×2 (18:15)
[2023-05-29] MEDS ORDERED: Lactated Ringers 1,000 ML IV SCH (18:15)
[2023-05-29] MEDS ORDERED: Misoprostol 25 MCG (1/4 of 100 MCG) Tab PO ONE (18:21)
[2023-05-29 19:47] LABS: HEMATOCRIT 32.8 % (37.0-47.0); HEMOGLOBIN 11.2 g/dL (12.0-16.0); MEAN CORPUSCULAR HEMOGLOBIN 29.2 pg (28.0-32.0); MEAN CORPUSCULAR HGB CONC 34.1 g/dL (32.0-36.0); MEAN CORPUSCULAR VOLUME 85.4 fL (83.0-99.0); MEAN PLATELET VOLUME 10.7 fL (9.4-12.3); PLATELET COUNT,PLT 206 K/uL (150-400); RED BLOOD CELL COUNT 3.84 M/uL (4.10-5.30); WHITE BLOOD CELL COUNT,WBC 9.08 K/uL (3.9-11.3)
[2023-05-30] MEDS ORDERED: Misoprostol 25 MCG (1/4 of 100 MCG) Tab PO SCH (00:30)
[2023-05-30] MEDS: Misoprostol 25 MCG (1/4 of 100 MCG) Tab PO SCH ×2 (04:48→09:37)
[2023-05-30] MEDS: Misoprostol 25 MCG (1/4 of 100 MCG) Tab VAG SCH ×2 (04:48→09:37)
[2023-05-30] MEDS ORDERED: Nalbuphine 10 MG/0.5 ML Syringe IVPUSH SCH (10:00)
[2023-05-30] MEDS ORDERED: Phenylephrine HCl 0.5 MG/5 ML AMP ONE (11:12)
[2023-05-30] MEDS ORDERED: Bupivacaine 0.5% 10 ML SDV ONE (11:12)
[2023-05-30] MEDS ORDERED: Ropivacaine HCl/PF 200 ML ONE (11:12)
[2023-05-30] MEDS ORDERED: Phenylephrine HCl 0.5 MG/5 ML AMP IVPUSH PRN (11:47)
[2023-05-30] MEDS ORDERED: ePHEDrine 50 MG/ML SDV IVPUSH PRN ×2 (11:47)
[2023-05-30] MEDS ORDERED: Ropivacaine HCl/PF 400 MG in Premix Bag 1 BAG EPIDUR SCH (12:00)
[2023-05-30] MEDS ORDERED: Lanolin 100% Cream 7 GM Tube TOP PRN (14:08)
[2023-05-30] MEDS ORDERED: Acetaminophen 500 MG Tab PO PRN (14:08)
[2023-05-30] MEDS ORDERED: Benzocaine/Menthol 20%-0.5% Spray 78 GM Cannister TOP PRN (14:08)
[2023-05-30] MEDS ORDERED: Witch Hazel Medicated Pads 40/Jar TOP PRN (14:08)
[2023-05-30] MEDS: Labetalol 100 MG Tab PO SCH (21:08)
[2023-05-31 06:47] LABS: HEMATOCRIT 34.6 % (37.0-47.0); HEMOGLOBIN 11.5 g/dL (12.0-16.0)
[2023-05-31 07:11] LABS: A/G RATIO 0.7 (0.9-1.6); ALBUMIN 2.5 g/dL (3.4-5.0); BILIRUBIN TOTAL 0.4 mg/dL (0.2-1.0); CALCIUM 9.1 mg/dL (8.5-10.1); CARBON DIOXIDE,CO2 23.3 mmol/L (21.0-32.0); CREATININE 0.7 mg/dL (0.6-1.0); EST CRCL DRUG DOSING (CG) 92.76 mL/min; POTASSIUM,K 4.2 mmol/L (3.5-5.1); PROTEIN TOTAL,TP 6.3 g/dL (6.4-8.2)
[2023-05-31] MEDS: Ibuprofen 800 MG Tab PO PRN ×3 (09:28→22:23)
[2023-05-31] MEDS: Labetalol 100 MG Tab PO SCH ×3 (10:53→23:00)
[2023-05-31] MEDS: Docusate Sodium 100 MG Cap PO PRN (20:23)
[2023-06-01] MEDS: Labetalol 100 MG Tab PO SCH ×2 (09:11→21:09)
[2023-06-01] MEDS: Ibuprofen 800 MG Tab PO PRN ×2 (09:12→21:09)
[2023-06-01] MEDS: Docusate Sodium 100 MG Cap PO PRN ×2 (09:12→21:11)
[2023-06-01 21:11] VITALS: PULSE 75
[2023-06-01 23:25] VITALS: BP 138/75
== END 2023-06-01 23:30 | disposition home or self-care (01) | DRG 560 ==
LOC: OBSVTOIN 17:59 → MW.OB 17:59
PROVIDERS: ADMIT Obstetrics & Gynecology Obstetrics; ATTEND Obstetrics & Gynecology
PROC: 10E0XZZ Delivery of Products of Conception, External Approach (ICD-10-PCS; principal; 2023-05-30)
PROC: 3E0P7VZ Introduction of Hormone into Female Reproductive, Via Natural or Artificial Opening (ICD-10-PCS; 2023-05-30)
PROC: 3E0R3BZ Introduction of Anesthetic Agent into Spinal Canal, Percutaneous Approach (ICD-10-PCS; 2023-05-30)
PROC: 00HU33Z Insertion of Infusion Device into Spinal Canal, Percutaneous Approach (ICD-10-PCS; 2023-05-30)
DX: O14.94 Unspecified pre-eclampsia, complicating childbirth (principal); Z37.0 Single live birth; O13.4 Gestational [pregnancy-induced] hypertension without significant proteinuria, complicating childbirth; O24.420 Gestational diabetes mellitus in childbirth, diet controlled; O99.214 Obesity complicating childbirth; O69.81X0 Labor and delivery complicated by cord around neck, without compression, not applicable or unspecified; Z98.890 Other specified postprocedural states; Z3A.37 37 weeks gestation of pregnancy; Z90.89 Acquired absence of other organs; Z90.49 Acquired absence of other specified parts of digestive tract
CPT/HCPCS: 36415; 51702; 59025; 59409; 80053; 82947; 85014; 85018; 85027; 86592; 86850; 86900; 86901; A9270-GY; J0665; J2300; J2371; J2590; J2795; J7120

== ENCOUNTER 2024-01-22 19:36 | Emergency (ER) | payer BC ==
[2024-01-22] MEDS: Etomidate 2 MG/ML 20 ML SDV IVPUSH ONE (19:57)
[2024-01-22 22:36] VITALS: BP 131/78; PULSE 86
== END 2024-01-22 22:35 | disposition home or self-care (01) ==
LOC: MW.ED 19:36
DX: R91.8 Other nonspecific abnormal finding of lung field (principal); E66.9 Obesity, unspecified; Z68.34 Body mass index [BMI] 34.0-34.9, adult; Z79.82 Long term (current) use of aspirin; Z79.899 Other long term (current) drug therapy; Z90.49 Acquired absence of other specified parts of digestive tract
CPT/HCPCS: 71046; 71046-26; 99283; U0002

== ENCOUNTER 2025-02-22 11:11 | Observation (INO) | payer OTHER ==
[2025-02-22 11:38] LABS: BASOPHILS ABSOLUTE AUTO 0.03 K/uL (0.00-0.20); BASOPHILS PERCENT AUTO 0.4 % (0.0-1.0); EOSINOPHILS ABSOLUTE AUTO 0.11 K/uL (0.00-0.45); EOSINOPHILS PERCENT AUTO 1.6 % (0.0-6.0); IMMATURE GRAN ABSOLUTE AUTO 0.02 K/uL (0.00-0.05); IMMATURE GRAN PERCENT AUTO 0.3 % (0.0-0.4); LYMPHOCYTES ABSOLUTE AUTO 2.16 K/uL (1.00-4.80); LYMPHOCYTES PERCENT AUTO 32.0 % (24.0-44.0); MEAN PLATELET VOLUME 9.6 fL (9.4-12.3); MONOCYTES ABSOLUTE AUTO 0.44 K/uL (0.00-0.80); MONOCYTES PERCENT AUTO 6.5 % (0.0-8.0); NEUTROPHILS ABSOLUTE AUTO 3.99 K/uL (1.80-7.70); NEUTROPHILS PERCENT AUTO 59.2 % (41.0-71.0); NRBC ABSOLUTE 0.00 K/uL (0.00-0.02); NRBC PERCENT 0.0 /100WBC (0.0-0.2); PLATELET COUNT,PLT 220 K/uL (150-400); RED BLOOD CELL COUNT 4.93 M/uL (4.10-5.30); WHITE BLOOD CELL COUNT,WBC 6.75 K/uL (3.9-11.3)
[2025-02-22 12:03] LABS: HCG QUALITATIVE,SERUM NEGATIVE (NEGATIVE)
[2025-02-22 12:16] LABS: APPEARANCE,URINE CLEAR; GLUCOSE,URINE NEGATIVE (NEGATIVE); OCCULT BLOOD,URINE MODERATE (NEGATIVE)
[2025-02-22 12:16] LABS: A/G RATIO 1.0 (0.9-1.6); ALANINE AMINOTRANSFERASE,ALT 28.0 IU/L (14-63); ASPARTATE AMNIOTRANSFERASE,AST 19.0 IU/L (15-37); BILIRUBIN TOTAL 0.3 mg/dL (0.2-1.0); BLOOD UREA NITROGEN,BUN 13.0 mg/dL (7.0-18.0); CARBON DIOXIDE,CO2 27.3 mmol/L (21.0-32.0); CHLORIDE,CL 103.0 mmol/L (98-107); CREATININE 0.7 mg/dL (0.6-1.0); EST CRCL DRUG DOSING (CG) 91.91 mL/min; GLUCOSE RANDOM 103.0 mg/dL (74-106); POTASSIUM,K 3.9 mmol/L (3.5-5.1); PRO B-TYPE NATRIUR PEPT,BNPPRO 43.0 pg/mL (0-125); PROTEIN TOTAL,TP 7.8 g/dL (6.4-8.2); SODIUM,NA 142.0 mmol/L (136-145); TSH ULTRASENSITIVE 1.1 uIU/mL (0.36-3.74)
[2025-02-22 12:18] LABS: ESTIMATED GFR 115.0 mL/min (>60)
[2025-02-22 12:34] LABS: EPITHELIAL CELLS,URINE FEW (NONE-FEW)
[2025-02-22] MEDS: hydrALAZINE 20 MG/ML SDV IVPUSH ONE (13:26)
[2025-02-22] MEDS ORDERED: Sodium Chloride 0.9% 2.5 ML Syringe FLUSH PRN (15:39)
[2025-02-22] MEDS ORDERED: Ondansetron 4 MG/2 ML SDV IVPUSH PRN (15:39)
[2025-02-22] MEDS ORDERED: Sodium Chloride 0.9% 10 ML Syringe FLUSH PRN (15:39)
[2025-02-23 05:50] LABS: BASOPHILS ABSOLUTE AUTO 0.04 K/uL (0.00-0.20); BASOPHILS PERCENT AUTO 0.6 % (0.0-1.0); EOSINOPHILS ABSOLUTE AUTO 0.18 K/uL (0.00-0.45); EOSINOPHILS PERCENT AUTO 2.9 % (0.0-6.0); IMMATURE GRAN ABSOLUTE AUTO 0.02 K/uL (0.00-0.05); IMMATURE GRAN PERCENT AUTO 0.3 % (0.0-0.4); LYMPHOCYTES ABSOLUTE AUTO 1.76 K/uL (1.00-4.80); LYMPHOCYTES PERCENT AUTO 28.0 % (24.0-44.0); MEAN PLATELET VOLUME 9.7 fL (9.4-12.3); MONOCYTES ABSOLUTE AUTO 0.50 K/uL (0.00-0.80); MONOCYTES PERCENT AUTO 8.0 % (0.0-8.0); NEUTROPHILS ABSOLUTE AUTO 3.78 K/uL (1.80-7.70); NEUTROPHILS PERCENT AUTO 60.2 % (41.0-71.0); NRBC ABSOLUTE 0.00 K/uL (0.00-0.02); NRBC PERCENT 0.0 /100WBC (0.0-0.2); PLATELET COUNT,PLT 206 K/uL (150-400); RED BLOOD CELL COUNT 4.50 M/uL (4.10-5.30); WHITE BLOOD CELL COUNT,WBC 6.28 K/uL (3.9-11.3)
[2025-02-23 06:13] LABS: BLOOD UREA NITROGEN,BUN 12.0 mg/dL (7.0-18.0); CARBON DIOXIDE,CO2 23.4 mmol/L (21.0-32.0); CHLORIDE,CL 107.0 mmol/L (98-107); CREATININE 0.6 mg/dL (0.6-1.0); EST CRCL DRUG DOSING (CG) 107.19 mL/min; GLUCOSE RANDOM 126.0 mg/dL (74-106); POTASSIUM,K 3.6 mmol/L (3.5-5.1); SODIUM,NA 140.0 mmol/L (136-145)
[2025-02-23 06:23] LABS: ESTIMATED GFR 119.0 mL/min (>60)
[2025-02-23 11:46] VITALS: BP 142/80; PULSE 84
== END 2025-02-23 11:53 | disposition home or self-care (01) ==
LOC: MW.ED 11:11 → MW.MS 14:11
PROVIDERS: ADMIT Internal Medicine; ATTEND Internal Medicine
DX: I16.0 Hypertensive urgency (principal); R55 Syncope and collapse; I10 Essential (primary) hypertension; F41.9 Anxiety disorder, unspecified; Z79.899 Other long term (current) drug therapy
CPT/HCPCS: 36415; 70450; 71045; 80048; 80053; 81001; 83735; 83880; 84443; 84484; 84703; 85025; 85379; 86308; 87428; 93005; 96361; 96374; 99285; A9270; G0378; J0360; J7030; 93010

== ENCOUNTER 2025-02-27 15:02 | Emergency (ER) | payer OTHER ==
[2025-02-27 15:38] LABS: APPEARANCE,URINE CLEAR; GLUCOSE,URINE 100 mg/dL (NEGATIVE); OCCULT BLOOD,URINE NEGATIVE (NEGATIVE)
[2025-02-27] MEDS ORDERED: Sodium Chloride 0.9% 10 ML Syringe FLUSH PRN (15:41)
[2025-02-27] MEDS ORDERED: Sodium Chloride 0.9% 2.5 ML Syringe FLUSH PRN (15:41)
[2025-02-27 15:50] LABS: EPITHELIAL CELLS,URINE RARE (NONE-FEW)
[2025-02-27] MEDS: Ketorolac 30 MG/ML SDV IVPUSH ONE (15:56)
[2025-02-27] MEDS: Ondansetron 4 MG/2 ML SDV IVPUSH ONE (15:57)
[2025-02-27 16:09] LABS: BASOPHILS ABSOLUTE AUTO 0.03 K/uL (0.00-0.20); BASOPHILS PERCENT AUTO 0.3 % (0.0-1.0); EOSINOPHILS ABSOLUTE AUTO 0.12 K/uL (0.00-0.45); EOSINOPHILS PERCENT AUTO 1.2 % (0.0-6.0); IMMATURE GRAN ABSOLUTE AUTO 0.03 K/uL (0.00-0.05); IMMATURE GRAN PERCENT AUTO 0.3 % (0.0-0.4); LYMPHOCYTES ABSOLUTE AUTO 2.13 K/uL (1.00-4.80); LYMPHOCYTES PERCENT AUTO 21.9 % (24.0-44.0); MEAN PLATELET VOLUME 9.5 fL (9.4-12.3); MONOCYTES ABSOLUTE AUTO 0.62 K/uL (0.00-0.80); MONOCYTES PERCENT AUTO 6.4 % (0.0-8.0); NEUTROPHILS ABSOLUTE AUTO 6.79 K/uL (1.80-7.70); NEUTROPHILS PERCENT AUTO 69.9 % (41.0-71.0); NRBC ABSOLUTE 0.00 K/uL (0.00-0.02); NRBC PERCENT 0.0 /100WBC (0.0-0.2); PLATELET COUNT,PLT 217 K/uL (150-400); RED BLOOD CELL COUNT 4.81 M/uL (4.10-5.30); WHITE BLOOD CELL COUNT,WBC 9.72 K/uL (3.9-11.3)
[2025-02-27 16:30] LABS: A/G RATIO 1.0 (0.9-1.6); ALANINE AMINOTRANSFERASE,ALT 24.0 IU/L (14-63); ASPARTATE AMNIOTRANSFERASE,AST 17.0 IU/L (15-37); BILIRUBIN TOTAL 0.3 mg/dL (0.2-1.0); BLOOD UREA NITROGEN,BUN 13.0 mg/dL (7.0-18.0); CARBON DIOXIDE,CO2 29.5 mmol/L (21.0-32.0); CHLORIDE,CL 102.0 mmol/L (98-107); CREATININE 0.8 mg/dL (0.6-1.0); EST CRCL DRUG DOSING (CG) 80.42 mL/min; GLUCOSE RANDOM 98.0 mg/dL (74-106); POTASSIUM,K 4.0 mmol/L (3.5-5.1); PROTEIN TOTAL,TP 7.9 g/dL (6.4-8.2); SODIUM,NA 141.0 mmol/L (136-145)
[2025-02-27 16:32] LABS: ESTIMATED GFR 98.0 mL/min (>60)
[2025-02-27] MEDS: Iopamidol 755 Mg/ML 100 ML Bottle IVPUSH ONE (17:16)
[2025-02-27] MEDS: cefTRIAXone 1 GM in Water For Injection, Sterile 10 ML IVPUSH ONE (17:28)
[2025-02-27 18:37] VITALS: BP 137/97; PULSE 74
== END 2025-02-27 18:56 | disposition home or self-care (01) ==
LOC: MW.ED 15:02
DX: N39.0 Urinary tract infection, site not specified (principal)
CPT/HCPCS: 36415; 74177; 80053; 81001; 81025; 83690; 83735; 85025; 96361; 96374; 96375; 96376; 99284; J0696; J1885; J2270; J2405; J7030; Q9967